=== PATIENT | female | born 1945 | race Caucasian/White ===

== ENCOUNTER 2016-08-23 20:11 | Emergency (ER) | payer OTHER, MEDICAID ==
[2016-08-23 20:21] VITALS: BP 155/67; BMI 28.8
--- NOTE | 2016-08-23 20:35 | DR.GENAD ---
HPI - PCP Primary Care Physician: KIMBERLY - HPI Comment HPI Comment: Patient refers cough runny nose chills x 1wk - Complaint/Symptoms Chief Complaint Doctors Comments: Cough Chief Complaint:: PT STATES" VERONICA BEEN HAVING A COUGH AND MY NOSE HAS BEEN RUNNING I'M BAD TOO GET BRONCHITIS" - Nurses notes reviewed Nurses Notes Review: Yes - Source History Provided: Patient - Mode of Arrival Mode of Arrival: Ambulatory - Timing Onset of Chief Complaint: 08/21/16 PMH - PMH Past Medical History: Yes Past Medical History: Anxiety, Dyslipidemia, GERD, Hypertension, Hypothyroidism , Ventricular Tachycardia Past Surgical History: Yes Surgical History: Cholecystectomy, Hysterectomy Past Surgical History Comment: BLADDER TACK - Family History History of Family Medical Conditions: Yes Family Medical History: Cancer, Coronary Artery Disease, Hypertension - Social History Type of Tobacco Use: Cigarettes Does any household member use tobacco: No Alcohol Use: None Do you use any recreational Drugs:: No Lives With: Family Lives Where: Home - infectious screening In the last 2 months have you had wt loss of >10#?: NO Have you had fever, night sweats or hemotysis?: No Have you traveled outside the country in the last 6 months?: No Isolation: Standard ROS - Review of Systems Constitutional: Fever, Malaise Eyes: No Symptoms Reported ENTM: No Symptoms Reported, Nose Discharge Respiratoy: Non-Productive Cough Cardiovascular: No Symptoms Reported Gastrointestinal/Abdominal: No Symptoms Reported Genitourinary: No Symptoms Reported Neurological: No Symptoms Reported Musculoskeletal: No Symptoms Reported Integumentary: No Symptoms Reported Hematologic/Lymphatic: No Symptoms Reported Endocrine: No Symptoms Reported Psychiatric: No Symptoms Reported All Other Systems: Reviewed and Negative PE - Vital Signs Vitals: Temperature 99.3 F Pulse Rate 96 Respiratory Rate 18 Blood Pressure [Right Arm] 155/75 Blood Pressure [Left Arm] 135/81 Blood Pressure 155/67 O2 Sat by Pulse Oximetry 98 - General Limitations: No Limitations General Appearance: Alert, In No Apparent Distress - Head Head Exam: Normal Inspection - Eyes Eye exam: Normal Appearance, PERRL, EOMI - ENT ENT Exam: Normal Exam External Ear Exam: Normal External Inspection TM/Canal Exam: Bilateral Normal Nose Exam: Normal Nose Exam Mouth Exam: Normal Inspection Throat Exam: Normal Inspection - Neck Neck Exam: Normal Inspection - Chest Chest Inspection: Normal Inspection - Respiratory Respiratory Exam: Normal Lung Sounds Bilat Respiratory Exam: Bilateral Wheezing, Lower Decreased Breath Sounds - Cardiovascular Cardiovascular Exam: Regular Rate, Normal Rhythm - Abdominal Exam Abdominal Exam: Normal Inspection, Normal Bowel Sounds, Soft - Extremities Extremities Exam: Normal Inspection - Back Back Exam: Normal Inspection - Neurologic Neurological Exam: Alert, Oriented X3 - Psychiatric Psychiatric Exam: Depressed, Anxious - Skin Skin Exam: Warm, Dry, Intact, Normal Color Course - Reevaluation 1st: Improved - Education/Counseling Education/Counseling: Patient, Family Educated On: Treatment, Diagnosis, Needs for Follow Up ROR - Labs Reviewed Laboratory Results Reviewed?: Yes Result Diagrams: 08/23/16 20:40 08/23/16 20:40 Laboratory: WBC 8.1 X10^3/uL (3.6-10.0) 08/23/16 20:40 RBC 4.40 X10^6/uL (3.5-5.4) 08/23/16 20:40 Hgb 14.6 g/dL (12.0-16.0) 08/23/16 20:40 Hct 42.2 % (36.0-47.0) 08/23/16 20:40 MCV 95.9 fL (80.0-100.0) 08/23/16 20:40 MCH 33.1 pg (27.0-34.0) 08/23/16 20:40 MCHC 34.5 g/dL (33.0-35.0) 08/23/16 20:40 RDW 13.3 % (11.6-16.5) 08/23/16 20:40 Plt Count 147 X10^3/uL (150.0-450.0) L 08/23/16 20:40 MPV 8.5 fL (7.4-11.0) 08/23/16 20:40 Neut % 82.7 % (42.0-75.0) H 08/23/16 20:40 Lymph % 8.2 % (21.0-51.0) L 08/23/16 20:40 [place] % 7.6 % (0.0-13.0) 08/23/16 20:40 Eos % 0.5 % (0.9-2.9) L 08/23/16 20:40 Baso % 1.0 % (0.2-1.0) 08/23/16 20:40 Neut # 6.7 x10^3/uL (2.2-4.8) H 08/23/16 20:40 Lymph # 0.7 X10^3/uL (1.3-2.9) L 08/23/16 20:40 [place] # 0.6 x10^3/uL (0.3-0.8) 08/23/16 20:40 Eos # 0.0 x10^3/uL (0.0-0.2) 08/23/16 20:40 Baso # 0.1 X10^3/uL (0.0-0.1) 08/23/16 20:40 Absolute Nucleated RBC 0.1 /100WBC 08/23/16 20:40 Sodium 143 mmol/L (136-145) 08/23/16 20:40 Corrected Sodium TNP 08/23/16 20:40 Potassium 3.7 mmol/L (3.5-5.1) 08/23/16 20:40 Chloride 107 mmol/L (98-107) 08/23/16 20:40 Carbon Dioxide 26.6 mmol/L (21-32) 08/23/16 20:40 BUN 7 mg/dL (7-18) 08/23/16 20:40 Creatinine 0.80 mg/dL (0.55-1.02) 08/23/16 20:40 Est GFR (MDRD) Af Amer > 60 (>60) 08/23/16 20:40 Est GFR (MDRD) Non-Af > 60 (>60) 08/23/16 20:40 Glucose 94 mg/dL (65-99) 08/23/16 20:40 Calcium 9.5 mg/dL (8.5-10.1) 08/23/16 20:40 Corrected Calcium TNP 08/23/16 20:40 Total Bilirubin 0.40 mg/dL (0.2-1.0) 08/23/16 20:40 AST 22 Units/L (15-37) 08/23/16 20:40 ALT 23 Units/L (12-78) 08/23/16 20:40 Alkaline Phosphatase 75 Units/L (46-116) 08/23/16 20:40 Total Protein 7.0 g/dL (6.4-8.2) 08/23/16 20:40 Albumin 3.8 g/dL (3.4-5.0) 08/23/16 20:40 Globulin 3.2 g/dL (2.5-4.5) 08/23/16 20:40 Albumin/Globulin Ratio 1.2 Ratio (1.1-2.1) 08/23/16 20:40 reviewed - XRAY XRAY Interpreted by: Radiologist XRAY Findings: COPD - Diagnosis Discharge Problem: Fever, low grade, Cough, COPD exacerbation - Discharge Plan Disposition: HOME, SELF-CARE Condition: Stable Prescriptions: Cefdinir 300 mg PO BID #20 cap - Follow ups/Referrals Follow ups/Referrals: Mark Harris [Primary Care Provider] - 3 days - Instructions Instructions: Chronic Obstructive Pulmonary Disease, Cough, Adult, [id number] Additional Instructions: Follow up with PCP Continue home medications
[2016-08-23 20:49] LABS: BASOPHILS # (AUTO) 0.1 X10^3/uL (0.0-0.1); EOSINOPHILS % (AUTO) 0.5 % (0.9-2.9); HEMATOCRIT 42.2 % (36.0-47.0); HEMOGLOBIN 14.6 g/dL (12.0-16.0); LYMPHOCYTES # (AUTO) 0.7 X10^3/uL (1.3-2.9); LYMPHOCYTES % (AUTO) 8.2 % (21.0-51.0); MEAN CORPUSCULAR HEMOGLOBIN 33.1 pg (27.0-34.0); MEAN CORPUSCULAR HGB CONC 34.5 g/dL (33.0-35.0); MEAN CORPUSCULAR VOLUME 95.9 fL (80.0-100.0); MEAN PLATELET VOLUME 8.5 fL (7.4-11.0); MONOCYTES # (AUTO) 0.6 x10^3/uL (0.3-0.8); MONOCYTES % (AUTO) 7.6 % (0.0-13.0); NEUTROPHILS # (AUTO) 6.7 x10^3/uL (2.2-4.8); NEUTROPHILS % (AUTO) 82.7 % (42.0-75.0); PLATELET COUNT 147 X10^3/uL (150.0-450.0); RED CELL DISTRIBUTION WIDTH 13.3 % (11.6-16.5); WHITE BLOOD COUNT 8.1 X10^3/uL (3.6-10.0)
[2016-08-23 20:59] LABS: ALANINE AMINOTRANSFERASE 23 Units/L (12-78); ALBUMIN 3.8 g/dL (3.4-5.0); ALKALINE PHOSPHATASE 75 Units/L (46-116); ASPARTATE AMINO TRANSFERASE 22 Units/L (15-37); BLOOD UREA NITROGEN 7 mg/dL (7-18); CALCIUM 9.5 mg/dL (8.5-10.1); CARBON DIOXIDE 26.6 mmol/L (21-32); CHLORIDE 107 mmol/L (98-107); GLUCOSE 94 mg/dL (65-99); SODIUM 143 mmol/L (136-145); eGFR BLACK RACES > 60 (>60); eGFR NON BLACK RACES > 60 (>60)
--- NOTE | 2016-08-23 21:12 | RAD ---
EXAM: Chest X-ray INDICATION: Cough COMPARISION: Prior exam from May 19, 2016 TECHNIQUE: PA and Lat, 2 view FINDINGS: Chronic lung parenchymal changes are present bilaterally. The lung volumes are increased, and there is flattening of the hemidiaphragms. No focal lung parenchymal abnormality identified. The cardiac silhouette is mildly enlarged. The mediastinum is normal. The regional skeleton is intact. No evid ence of a pleural effusion. IMPRESSION: Chronic lung parenchymal changes are seen bilaterally and the lung volumes are increased, consistent with COPD. No acute abnormality. Reported By:
[2016-08-23] MEDS ORDERED: ROCEPHIN VIAL 1 GM 1 GM in NS 50 ML IV + SPIKE MINIBAG* 50 ML IV ONE (21:35)
[2016-08-23] MEDS ORDERED: DECADRON JET NEB NEB ONE ×2 (21:35→21:48)
[2016-08-23] MEDS ORDERED: DUONEB 0.5 MG/3 MG NEB ONE (21:35)
[2016-08-23] MEDS ORDERED: ROCEPHIN VIAL 1 GM IM ONE (21:44)
[2016-08-23] MEDS ORDERED: XYLOCAINE 1 % (PLAIN) ONE (21:45)
[2016-08-23] MEDS ORDERED: ROCEPHIN VIAL 1 GM ONE (21:46)
[2016-08-23] MEDS ORDERED: DUONEB 0.5 MG/3 MG ONE (21:48)
[2016-08-23] MEDS ORDERED: TORADOL 60 MG VIAL ONE (22:56)
[2016-08-23] MEDS ORDERED: TORADOL 60 MG VIAL IM ONE (22:56)
== END 2016-08-23 23:26 | disposition home or self-care (01) ==
LOC: ER 20:11
DX: J44.1 Chronic obstructive pulmonary disease with (acute) exacerbation (principal); R50.9 Fever, unspecified; R05 Cough
CPT/HCPCS: 36415; 71020; 80053; 85025; 96372; 99283; J0696; J1885; J2001; J7620

== ENCOUNTER → 2017-09-28 | Outpatient (CLI) | payer OTHER, MEDICAID ==
--- NOTE | 2017-09-28 17:53 | RAD ---
HISTORY: Hip pain for months. Study: Left hip: Two views Comparison: None Findings: The pelvic ring is intact. There is ossification/calcification projected over the right iliac wing, possibly an injection granuloma. There is least mild degenerative change in the lower lumbar spine. The pubic rami are intact. The left hip shows minimal acetabular spurring. No acute bony or joint abnormalities are identified. The femoral head contour and femoral neck are intact. Similar findings are noted on the right. IMPRESSION: 1. Degenerative change in the left hip as described above. 2. No acute bony abnormalities are identified. Reported By:
--- NOTE | 2017-09-28 17:55 | RAD ---
HISTORY: Back pain for months Study: AP and lateral lumbar spine Comparison: None Findings: Five lumbar type vertebra present. Mild osteopenia is noted. Mild facet arthropathy is noted throug hout with [id number] at L4/L5 and L5/S1. Mild degenerative changes present in the sacroiliac j oints. The lateral view demonstrates moderate to moderately severe disc space narrowing at L5/S1. T hree -4 mm of spondylolisthesis of L4 on L5 is noted. Minimal anterior spurring is present at a few levels. Mild vascular calcification is noted. IMPRESSION: 1. Lumbar spondylosis as described above. 2. No acute bony abnormalities are identified. Reported By:
--- NOTE | 2017-09-28 17:56 | RAD ---
HISTORY: Left knee pain for months Study: Left knee: Three views Comparison: None Findings: Moderate joint space narrowing is noted in the medial compartment. Mild spurring is noted medially. Minimal is noted laterally. Mild spiking of the tibial spines is noted. Mild patellofemoral joint degeneration is noted. No acute bony or joint abnormalities are identified. IMPRESSION: 1. Degenerative change in the left knee as described above. 2. No acute bony abnormalities are identified. Reported By:
== END ==
LOC: RAD 15:46
PROVIDERS: ATTEND Nurse Practitioner Family
DX: M54.17 Radiculopathy, lumbosacral region (principal); M25.552 Pain in left hip; M25.562 Pain in left knee
CPT/HCPCS: 72100; 73501; 73564

== ENCOUNTER 2018-08-01 14:38 | Inpatient (IN) ==
[2018-08-01 14:47] VITALS: BMI 23.6
[2018-08-01] MEDS ORDERED: DUONEB 0.5 MG/3 MG NEB ONE (15:08)
[2018-08-01] MEDS ORDERED: ROCEPHIN VIAL 1 GRAM IVP ONE (15:10)
--- NOTE | 2018-08-01 15:11 | DR.GENAD ---
HPI Time Seen Time Seen by Provider: 08/01/18 15:05 PCP Primary Care Physician: ALEX FISHER Complaint/Symptoms Chief Complaint:: PT STATES SHE WOKE UP THIS MORNING AND FELT VERY WEAK AND "COULDN'T GET OUT OF BED." PT C/O GENERALIZED PAIN INTO RIGHT GROIN THAT RADIATES AROUND INTO LOWER BACK. PAIN IS DESCRIBED SHARP STABBING AND CONSTANT AND RATED 9/10. PT ALSO C/O PRODUCTIVE COUGH WITH YELLOW SPUTUM Source History Provided: Patient Mode of Arrival Mode of Arrival: Ambulatory Timing Onset of Chief Complaint: 08/01/18 PMH PMH Past Medical History: Yes Past Medical History: COPD and Hypertension Past Medical History Comment: STAGE 3 LUNG CANCER, LEUKEMIA Past Surgical History: Yes Surgical History: Cholecystectomy and Hysterectomy Family History History of Family Medical Conditions: Yes Family Medical History: Cancer Social History Does patient currently use any type of tobacco product: Yes Have you used tobacco products in the last 12 months: No Type of Tobacco Use: Cigarettes Does any household member use tobacco: No Alcohol Use: None Do you use any recreational Drugs:: No Lives With: Alone Lives Where: Home infectious screening In the last 2 months have you had wt loss of >10#?: NO Have you had fever, night sweats or hemotysis?: No Have you traveled outside the country in the last 6 months?: No Isolation: Standard ROS Review of Systems Constitutional: No Symptoms Reported Eyes: No Symptoms Reported ENTM: No Symptoms Reported Respiratoy: No Symptoms Reported Cardiovascular: No Symptoms Reported Gastrointestinal/Abdominal: No Symptoms Reported Genitourinary: No Symptoms Reported Neurological: No Symptoms Reported Musculoskeletal: No Symptoms Reported Integumentary: No Symptoms Reported Hematologic/Lymphatic: No Symptoms Reported Endocrine: No Symptoms Reported Psychiatric: No Symptoms Reported All Other Systems: Reviewed and Negative PE Vital Signs Vitals: Temperature 100.2 F Pulse Rate [Apical] 109 Pulse Rate 114 Respiratory Rate 24 Blood Pressure [Right Arm] 148/58 Blood Pressure [Left Arm] 135/81 Blood Pressure 130/63 O2 Sat by Pulse Oximetry 93 General Limitations: No Limitations General Appearance: Alert and In No Apparent Distress Head Head Exam: Normal Inspection Eyes Eye exam: Normal Appearance ENT ENT Exam: Normal Exam External Ear Exam: Normal External Inspection TM/Canal Exam: Bilateral: Normal Nose Exam: Normal Nose Exam Mouth Exam: Normal Inspection Throat Exam: Normal Inspection Neck Neck Exam: Normal Inspection Chest Chest Inspection: Normal Inspection Respiratory Respiratory Exam: Normal Lung Sounds Bilat Respiratory Exam: Bilateral: Clear to Auscultation Cardiovascular Cardiovascular Exam: Regular Rate and Normal Rhythm Abdominal Exam Abdominal Exam: Normal Inspection, Normal Bowel Sounds and Soft Extremities Extremities Exam: Normal Inspection Back Back Exam: Normal Inspection Neurologic Neurological Exam: Alert and Oriented X3 Psychiatric Psychiatric Exam: Normal Affect and Normal Mood Skin Skin Exam: Warm, Dry, Intact and Normal Color MDM Additional Information Additional Information Obtained From: Old Records ROR Labs Reviewed Result Diagrams: 08/01/18 15:17 08/01/18 15:17 Laboratory: WBC 24.5 X10^3/uL (3.6-10.0) H 08/01/18 15:17 RBC 4.08 X10^6/uL (3.5-5.4) 08/01/18 15:17 Hgb 10.9 g/dL (12.0-16.0) L 08/01/18 15:17 Hct 34.8 % (36.0-47.0) L 08/01/18 15:17 MCV 85.3 fL (80.0-100.0) 08/01/18 15:17 MCH 26.7 pg (27.0-34.0) L 08/01/18 15:17 MCHC 31.3 g/dL (33.0-35.0) L 08/01/18 15:17 RDW 17.9 % (11.6-16.5) H 08/01/18 15:17 Plt Count 240 X10^3/uL (150.0-450.0) 08/01/18 15:17 Plt Count Comment Adequate (ADEQUATE) 08/01/18 15:17 MPV 8.5 fL (7.4-11.0) 08/01/18 15:17 Neut % (Auto) 84.7 % (42.0-75.0) H 08/01/18 15:17 Lymph % (Auto) 3.9 % (21.0-51.0) L 08/01/18 15:17 [place] % (Auto) 10.8 % (0.0-13.0) 08/01/18 15:17 Eos % (Auto) 0.0 % (0.9-2.9) L 08/01/18 15:17 Baso % (Auto) 0.6 % (0.2-1.0) 08/01/18 15:17 Neut # (Auto) 20.7 x10^3/uL (2.2-4.8) H 08/01/18 15:17 Lymph # (Auto) 1.0 X10^3/uL (1.3-2.9) L 08/01/18 15:17 [place] # (Auto) 2.6 x10^3/uL (0.3-0.8) H 08/01/18 15:17 Eos # (Auto) 0.0 x10^3/uL (0.0-0.2) 08/01/18 15:17 Baso # (Auto) 0.1 X10^3/uL (0.0-0.1) 08/01/18 15:17 Absolute Nucleated RBC 0.0 /100WBC 08/01/18 15:17 Total Counted 100 08/01/18 15:17 Neutrophils % (Manual) 80 % (39-76) H 08/01/18 15:17 Band Neutrophils % 6 % (0-10) 08/01/18 15:17 Lymphocytes % (Manual) 7 % (13-43) L 08/01/18 15:17 Monocytes % (Manual) 6 % (4-9) 08/01/18 15:17 Atypical Lymphocytes 1 08/01/18 15:17 Plt Morphology Comment Normal (NORMAL) 08/01/18 15:17 RBC Morphology Abnormal (NORMAL) A 08/01/18 15:17 Anisocytosis Slight A 08/01/18 15:17 INR Target Range - 08/01/18 15:17 INR 1.16 (0.8-1.3) 08/01/18 15:17 APTT 30.8 SECONDS (22.9-36.5) 08/01/18 15:17 PTT Comment - 08/01/18 15:17 D-Dimer 3650 ng/mL (0-400) H* 08/01/18 15:17 Sample Site Lr 08/01/18 15:15 ABG pH 7.460 (7.35-7.45) H 08/01/18 15:15 ABG pCO2 33.0 mmHg (35.0-45.0) L 08/01/18 15:15 ABG pO2 46.0 mmHg (80.0-100.0) L* 08/01/18 15:15 ABG HCO3 23.5 mmol/L (22-26) 08/01/18 15:15 ABG O2 Saturation 84.0 % (90-100) L* 08/01/18 15:15 ABG Base Excess 0.2 mmol/L (-2.0-2.0) 08/01/18 15:15 Abhinav Test Pos 08/01/18 15:15 A-a Gradient 62.0 mmHg 08/01/18 15:15 FiO2 21.0 08/01/18 15:15 Blood Gas Comments Tiffanie well cb 08/01/18 15:15 Sodium 141 mmol/L (136-145) 08/01/18 15:17 Corrected Sodium TNP 08/01/18 15:17 Potassium 3.0 mmol/L (3.5-5.1) L* 08/01/18 15:17 Chloride 106 mmol/L (98-107) 08/01/18 15:17 Carbon Dioxide 24.5 mmol/L (21-32) 08/01/18 15:17 BUN 9 mg/dL (7-18) 08/01/18 15:17 Creatinine 0.90 mg/dL (0.55-1.02) 08/01/18 15:17 Est GFR (MDRD) Af Amer > 60 (>60) 08/01/18 15:17 Est GFR (MDRD) Non-Af > 60 (>60) 08/01/18 15:17 Glucose 108 mg/dL (65-99) H 08/01/18 15:17 Lactic Acid 1.6 mmol/L (0.4-2.0) 08/01/18 15:17 Calcium 9.6 mg/dL (8.5-10.1) 08/01/18 15:17 Corrected Calcium 10.4 mg/dL (8.5-10.1) H 08/01/18 15:17 Total Bilirubin 0.90 mg/dL (0.2-1.0) 08/01/18 15:17 AST 38 Units/L (15-37) H 08/01/18 15:17 ALT 11 Units/L (12-78) L 08/01/18 15:17 Alkaline Phosphatase 82 Units/L (46-116) 08/01/18 15:17 Creatine Kinase 54 Units/L (26-192) 08/01/18 15:17 CK-MB (CK-2) < 1.0 ng/mL (0-4.0) 08/01/18 15:17 CK/CKMB % Calc 1.9 % (<4) 08/01/18 15:17 Troponin I < 0.02 ng/mL (0-1.5) 08/01/18 15:17 C-Reactive Protein 126.50 mg/L (0-3.0) H 08/01/18 15:17 Total Protein 6.8 g/dL (6.4-8.2) 08/01/18 15:17 Albumin 3.0 g/dL (3.4-5.0) L 08/01/18 15:17 Globulin 3.8 g/dL (2.5-4.5) 08/01/18 15:17 Albumin/Globulin Ratio 0.8 Ratio (1.1-2.1) L 08/01/18 15:17 Specimen Type Clean catch urine 08/01/18 19:22 Urine Color Katie (YELLOW) 08/01/18 19:22 Urine Appearance Clear (CLEAR) 08/01/18 19:22 Urine pH 6.5 (5.0 - 8.0) 08/01/18 19:22 Ur Specific [place] 1.010 (1.000-1.030) 08/01/18 19:22 Urine Protein 2+ (NEGATIVE) 08/01/18 19:22 Urine Glucose (UA) Negative (NEGATIVE) 08/01/18 19:22 Urine Ketones Negative (NEGATIVE) 08/01/18 19:22 Urine Occult Blood 1+ (NEGATIVE) 08/01/18 19:22 Urine Nitrite Negative (NEGATIVE) 08/01/18 19:22 Urine Bilirubin Negative (NEGATIVE) 08/01/18 19:22 Urine Urobilinogen Normal (NORMAL) 08/01/18 19:22 Ur Leukocyte Esterase Negative (NEGATIVE) 08/01/18 19:22 Urine RBC 0-2 /HPF (NONE SEEN) 08/01/18 19:22 Urine WBC 3-5 /HPF (NONE SEEN) 08/01/18 19:22 Ur Squamous Epith Cells Many /HPF (NEGATIVE) 08/01/18 19:22 Urine Bacteria Trace /HPF (NEGATIVE) 02/25/19 19:22 Urine Mucus Rare /HPF (NEGATIVE) 08/01/18 19:22 Ur Culture Indicated? Yes/culture set up 08/01/18 19:22 EKG Rate: 110 [place]eld: RAD Rhythm: ST Hypertrophy: LAE ST: Ischemia and Infarct
[2018-08-01 15:21] LABS: ABG BASE EXCESS 0.2 mmol/L (-2.0-2.0); ABG HCO3 23.5 mmol/L (22-26)
[2018-08-01 15:23] LABS: ABG ALLEN TEST POS
[2018-08-01] MEDS ORDERED: DUONEB 0.5 MG/3 MG ONE ×2 (15:35→16:42)
[2018-08-01 15:39] LABS: BASOPHILS # (AUTO) 0.1 X10^3/uL (0.0-0.1); BASOPHILS % (AUTO) 0.6 % (0.2-1.0); HEMATOCRIT 34.8 % (36.0-47.0); HEMOGLOBIN 10.9 g/dL (12.0-16.0); LYMPHOCYTES % (AUTO) 3.9 % (21.0-51.0); MEAN CORPUSCULAR HEMOGLOBIN 26.7 pg (27.0-34.0); MEAN CORPUSCULAR HGB CONC 31.3 g/dL (33.0-35.0); MEAN CORPUSCULAR VOLUME 85.3 fL (80.0-100.0); MEAN PLATELET VOLUME 8.5 fL (7.4-11.0); MONOCYTES # (AUTO) 2.6 x10^3/uL (0.3-0.8); MONOCYTES % (AUTO) 10.8 % (0.0-13.0); NEUTROPHILS # (AUTO) 20.7 x10^3/uL (2.2-4.8); NEUTROPHILS % (AUTO) 84.7 % (42.0-75.0); PLATELET COUNT 240 X10^3/uL (150.0-450.0); RED BLOOD COUNT 4.08 X10^6/uL (3.5-5.4); RED CELL DISTRIBUTION WIDTH 17.9 % (11.6-16.5); WHITE BLOOD COUNT 24.5 X10^3/uL (3.6-10.0)
[2018-08-01 15:52] LABS: BAND NEUTROPHILS % 6 % (0-10)
[2018-08-01 15:53] LABS: ANISOCYTOSIS SLIGHT; LACTIC ACID 1.6 mmol/L (0.4-2.0)
[2018-08-01 15:54] LABS: PLATELET MORPHOLOGY COMMENT NORMAL (NORMAL)
[2018-08-01] MEDS ORDERED: ROCEPHIN VIAL 1 GRAM ONE (15:55)
[2018-08-01 16:00] LABS: ALANINE AMINOTRANSFERASE 11 Units/L (12-78); ALKALINE PHOSPHATASE 82 Units/L (46-116); ASPARTATE AMINO TRANSFERASE 38 Units/L (15-37); BLOOD UREA NITROGEN 9 mg/dL (7-18); CALCIUM 9.6 mg/dL (8.5-10.1); CARBON DIOXIDE 24.5 mmol/L (21-32); CHLORIDE 106 mmol/L (98-107); CKMB % 1.9 % (<4); COR CA(FOR HYPOALB) 10.4 mg/dL (8.5-10.1); CREATINE KINASE 54 Units/L (26-192); CREATINE KINASE MB < 1.0 ng/mL (0-4.0); SODIUM 141 mmol/L (136-145); TOTAL PROTEIN 6.8 g/dL (6.4-8.2); TROPONIN I < 0.02 ng/mL (0-1.5); eGFR NON BLACK RACES > 60 (>60)
[2018-08-01] MEDS: NS 1000 ML 1,000 ML IV SCH (16:34)
--- NOTE | 2018-08-01 17:54 | RAD ---
HISTORY: Weakness, pain, cough Study: Single view chest Comparison: 08/23/2016 Findings: There are alveolar opacities in the right lower and upper lobes suggestive of pneumonia with probable right effusion. Left lung is clear. No effusion or pneumothorax. Stable cardiomegaly with vascular calcifications of the aorta. IMPRESSION: 1. Right lung consolidation suggestive of pneumonia with probable effusion. Reported By:
--- NOTE | 2018-08-01 18:02 | CT ---
CTA chest Indication: Elevated D-dimer. Leukemia. Comparison: 05/06/2014 Technique: CT images of the chest were obtained with contrast. Automatic exposure control was utilized. MIP images provided. Findings: The upper abdomen is grossly unremarkable. No acute osseous abnormality. The heart size is normal, with small pericardial effusion. There are several enlarged paratracheal, subcarinal, and right hilar lymph nodes. Thoracic aorta is grossly unremarkable for technique aside from scattered atherosclerotic calcifications and aberrant origin of the right subclavian artery. There are filling defects within multiple segmental and subsegmental branches of the right upper, middle, and lower lobes (for example image 34, series 4; image 60, series 7; image 54, series 7; image 41, series 7; image 58, series 4). There is filling defect within a segmental pulmonary artery branch in the left lower lobe (for example image 53, series 4). Smaller subsegmental right lower lobe filling defects are also noted. There is no convincing right heart strain. There is consolidation and volume loss involving the majority of the right lower lobe. The aerated portions of the right lower lobe demonstrate interstitial thickening with ground-glass. There is small layering right pleural effusion. There is partial compressive atelectasis of the dependent right upper lobe. Mild subsegmental atelectasis of the left lower lobe. No left-sided pleural effusion. The major airways are patent. Impression: Multiple segmental and subsegmental pulmonary thromboemboli throughout the right lung and within the left lower lobe. Mediastinal and right hilar adenopathy, likely malignant. Small right pleural effusion. Consolidation and volume loss of the right lung, suggestive for atelectasis and/or infectious or leukemic infiltrate. Small pericardial effusion. Reported By:
[2018-08-01] MEDS ORDERED: HEPARIN SODIUM IN D5W 25,000 UNITS/500 ML BAG IV PRN (18:45)
[2018-08-01] MEDS ORDERED: K-LYTE EFFERVESCENT PO ONE (19:07)
[2018-08-01] MEDS ORDERED: K-LYTE EFFERVESCENT ONE (19:23)
[2018-08-01 19:36] LABS: BILIRUBIN,URINE NEGATIVE (NEGATIVE); BLOOD/HEMOGLOBIN,URINE 1+ (NEGATIVE); GLUCOSE, URINE NEGATIVE (NEGATIVE); KETONES,URINE NEGATIVE (NEGATIVE); LEUKOCYTE ESTERASE ,URINE NEGATIVE (NEGATIVE); NITRITES,URINE NEGATIVE (NEGATIVE); PH,URINE 6.5 (5.0 - 8.0); PROTEIN,URINE 2+ (NEGATIVE); UROBILINOGEN,URINE NORMAL (NORMAL)
[2018-08-01 19:45] LABS: APPEARANCE,URINE CLEAR (CLEAR); COLOR,URINE AMBER (YELLOW)
[2018-08-01 19:46] LABS: BACTERIA,URINE TRACE /HPF (NEGATIVE); MUCUS,URINE RARE /HPF (NEGATIVE); RBC,URINE 0-2 /HPF (NONE SEEN); SQUAMOUS EPITHELIAL CELL,UR MANY /HPF (NEGATIVE)
[2018-08-01] MEDS: ELIQUIS PO SCH (22:03)
[2018-08-01] MEDS ORDERED: K-RIDER 10 MEQ/NS 100 ML 10 MEQ/100 ML BAG IV PRN (22:48)
[2018-08-01] MEDS ORDERED: KLOR-CON PO PRN (22:48)
[2018-08-01] MEDS ORDERED: MICRO K EXTEN CAP 10 MEQ PO PRN (22:48)
[2018-08-01] MEDS ORDERED: POTASSIUM CHL 40 MEQ/NS 0.45% 500 ML IV PRN (22:48)
[2018-08-01] MEDS ORDERED: POTASSIUM CHL 60 MEQ/NS 0.45% 500 ML IV PRN (22:48)
[2018-08-01] MEDS ORDERED: POTASSIUM CHLORIDE LIQ 20 MEQ UDC PO PRN (22:48)
[2018-08-01] MEDS: K-DUR TAB 20 MEQ PO PRN (23:10)
[2018-08-01] MEDS: ULTRAM PO PRN (23:13)
[2018-08-02 05:30] LABS: BASOPHILS # (AUTO) 0.1 X10^3/uL (0.0-0.1); BASOPHILS % (AUTO) 0.3 % (0.2-1.0); HEMATOCRIT 32.3 % (36.0-47.0); HEMOGLOBIN 10.1 g/dL (12.0-16.0); LYMPHOCYTES # (AUTO) 0.9 X10^3/uL (1.3-2.9); MEAN CORPUSCULAR HEMOGLOBIN 26.7 pg (27.0-34.0); MEAN CORPUSCULAR HGB CONC 31.1 g/dL (33.0-35.0); MEAN CORPUSCULAR VOLUME 85.8 fL (80.0-100.0); MEAN PLATELET VOLUME 8.8 fL (7.4-11.0); MONOCYTES # (AUTO) 1.8 x10^3/uL (0.3-0.8); MONOCYTES % (AUTO) 7.9 % (0.0-13.0); NEUTROPHILS # (AUTO) 20.4 x10^3/uL (2.2-4.8); NEUTROPHILS % (AUTO) 87.8 % (42.0-75.0); PLATELET COUNT 222 X10^3/uL (150.0-450.0); RED BLOOD COUNT 3.76 X10^6/uL (3.5-5.4); RED CELL DISTRIBUTION WIDTH 18.2 % (11.6-16.5); WHITE BLOOD COUNT 23.2 X10^3/uL (3.6-10.0)
[2018-08-02 05:52] LABS: ALANINE AMINOTRANSFERASE 11 Units/L (12-78); ALBUMIN 2.6 g/dL (3.4-5.0); ALKALINE PHOSPHATASE 77 Units/L (46-116); ASPARTATE AMINO TRANSFERASE 34 Units/L (15-37); BLOOD UREA NITROGEN 9 mg/dL (7-18); CALCIUM 9.5 mg/dL (8.5-10.1); CARBON DIOXIDE 25.8 mmol/L (21-32); CHLORIDE 106 mmol/L (98-107); CKMB % 1.6 % (<4); COR CA(FOR HYPOALB) 10.6 mg/dL (8.5-10.1); CREATINE KINASE 64 Units/L (26-192); CREATINE KINASE MB < 1.0 ng/mL (0-4.0); CREATININE 0.86 mg/dL (0.55-1.02); SODIUM 140 mmol/L (136-145); TOTAL PROTEIN 6.2 g/dL (6.4-8.2); TROPONIN I < 0.02 ng/mL (0-1.5); eGFR NON BLACK RACES > 60 (>60)
[2018-08-02] MEDS: SYNTHROID 50 mcg TAB PO SCH (06:24)
[2018-08-02 06:33] LABS: BAND NEUTROPHILS % 3 % (0-10); PLATELET MORPHOLOGY COMMENT NORMAL (NORMAL)
[2018-08-02] MEDS ORDERED: LEXAPRO ONE (08:22)
[2018-08-02] MEDS: DUONEB 0.5 MG/3 MG NEB SCH ×4 (08:37→20:12)
[2018-08-02] MEDS: LEXAPRO PO SCH (08:54)
[2018-08-02] MEDS: KLONOPIN TAB 1 MG PO SCH ×2 (08:55→20:45)
[2018-08-02] MEDS: OSCAL+D or CALTRATE+D PO SCH (08:55)
[2018-08-02] MEDS: SINGULAIR TAB 10 MG PO SCH (08:55)
[2018-08-02] MEDS: ELIQUIS PO SCH ×2 (08:55→20:45)
[2018-08-02] MEDS: TOPROL XL PO SCH (08:55)
[2018-08-02] MEDS: FLONASE NASAL SPRAY ENOSTRIL SCH ×2 (08:56→20:44)
[2018-08-02] MEDS: PATIENT'S HOME MEDICATION (Dexlansoprazole [Dexilant] 60 MG) PO SCH ×2 (08:57→14:38)
[2018-08-02] MEDS: IMATINIB 400 MG PO SCH (08:58)
[2018-08-02] MEDS ORDERED: LEVAQUIN PREMIX IV 750 MG 750 MG/150 ML BAG IV SCH (09:00)
[2018-08-02] MEDS ORDERED: ESTRACE PO SCH (09:00)
[2018-08-02] MEDS: FORTAZ or TAZICEF VIAL INJ IVP SCH ×3 (10:42→21:49)
[2018-08-02] MEDS: K-DUR TAB 20 MEQ PO PRN (10:44)
[2018-08-02] MEDS: SOLU-Medrol 40 MG VIAL IVP SCH ×3 (10:46→21:49)
[2018-08-02] MEDS: MAGNESIUM SULFATE 1 GRAM/100 mL PREMIX 1 GM/100 ML BAG IV PRN ×2 (10:46→12:12)
[2018-08-02 11:31] LABS: ERYTHROCYTE SEDIMENTATION RATE 60 MM/HOUR (0-20)
[2018-08-02 12:37] LABS: BILIRUBIN,URINE NEGATIVE (NEGATIVE); BLOOD/HEMOGLOBIN,URINE 1+ (NEGATIVE); GLUCOSE, URINE NEGATIVE (NEGATIVE); KETONES,URINE NEGATIVE (NEGATIVE); LEUKOCYTE ESTERASE ,URINE 1+ (NEGATIVE); NITRITES,URINE NEGATIVE (NEGATIVE); PROTEIN,URINE 2+ (NEGATIVE); UROBILINOGEN,URINE NORMAL (NORMAL)
[2018-08-02 12:44] LABS: APPEARANCE,URINE HAZY (CLEAR); BACTERIA,URINE NEGATIVE /HPF (NEGATIVE); COLOR,URINE YELLOW (YELLOW); RBC,URINE 0-2 /HPF (NONE SEEN); SQUAMOUS EPITHELIAL CELL,UR RARE /HPF (NEGATIVE)
--- NOTE | 2018-08-02 13:18 | RAD ---
HISTORY: Shortness of breath and pneumonia Study: Single view of the chest. Comparison: CT 1 day prior demonstrating multiple pulmonary emboli and pneumonia Findings: The cardiomediastinal silhouette is normal. Patchy opacities in the right lower lobe. Osseous structures demonstrate no acute abnormality. IMPRESSION: 1. Opacities in the right lower lobe suggestive of pneumonia or possibly pulmonary infarct given patient's history of pulmonary emboli. Reported By:
[2018-08-02] MEDS: TORSEMIDE PO SCH (14:31)
[2018-08-02] MEDS: ROBITUSSIN DM PO PRN ×2 (14:59→19:16)
--- NOTE | 2018-08-02 15:41 | VAS ---
Exam: Bilateral lower extremity venous ultrasound History: 73-year-old female with history of pulmonary embolus. Comparison: None Findings: Ultrasound evaluation of the deep venous system of both legs was performed from the level of the inguinal ligament down to the calf. On both sides, the deep system is widely patent with good flow and compressibility noted throughout their course. No sign of intraluminal thrombus is seen in either leg. Impression: No deep vein thrombosis is identified in either lower extremity Reported By:
[2018-08-02] MEDS: NS 1000 ML 1,000 ML IV SCH (16:42)
[2018-08-02] MEDS: HumuLIN R SUBCUT PRN (16:42)
--- NOTE | 2018-08-02 20:30 | DR.H&P ---
H&P - History & Physical for Day of: H&P Date: 08/01/18 - Chief Complaint Chief Complaint: WEAKNESS, GENERALIZED PAIN, SOB, COUGH - History of Present Illness History of Present Illness: IS A 73 YEAR OLD PATIENT OF MOMENTFACE SRO. SHE PRESENTED TO THE ER WITH COMPLAINTS OF SEVERE WEAKNESS AND GENERALIZED PAIN. SHE DESCRIBES HER BACK PAIN STABBING AND CONSTANT. SHE ALSO REPORTS A PRODUCTIVE COUGH WITH THICK, YELLOW SPUTUM. SHE HAS A HISTORY OF LEUKEMIA AND WAS RECENTLY DIAGNOSED WITH STAGE 3 LUNG CANCER. ON ARRIVAL, VITALS WERE 100.5-126-18-86%RA-87/54. LABS WERE OBTAINED. ABNORMAL LAB VALUES INCLUDE THE FOLLOWING: WBC 24.5, HGB 10.9, HCT 34.8, D-DIMER 3650, POTASSIUM 3.0, GLUCOSE 108, AST 38, ALT 11, CRP 126.50, ALBUMIN 3.0. URINALYSIS REVEALED: WBC 3-5, RBC 0-2, BACTERIA TRACE, LEUKOCYTES NEGATIVE. ABG OBTAINED AND REVEALED: PH 7.460, PC02 33.0, P02 46.0, HC03 23.5, 02 SATURATION 84.0. BLOOD, URINE, AND SPUTUM CULTURES PENDING. EKG REVEALED SINUS TACHYCARDIA WITH HR 110. CHEST XRAY REVEALED: Right lung consolidation suggestive of pneumonia with probable effusion. A CHEST CTA WAS OBTAINED AND REVEALED: Multiple segmental and subsegmental pulmonary thromboemboli throughout the right lung and within the left lower lobe. Mediastinal and right hilar adenopathy, likely malignant. Small right pleural effusion. Consolidation and volume loss of the right lung, suggestive for atelectasis and/or infectious or leukemic infiltrate. Small pericardial effusion. SHE WAS GIVEN ROCEPHIN 1GM IV X 1 AND A DUONEB IN THE ER. SHE WAS STARTED ON ELIQUIS 10MG PO BID, LEVAQUIN 750MG IV DAILY, NORMAL SALINE AT KVO, AND HOME MEDICATIONS RESUMED. WE PLAN TO FOLLOW UP WITH AM LABS AND CHEST XRAY AND CONTINUE TO MONITOR. - Past Medical History Past Medical History: Hypertension, COPD - Past Surgical History Surgical History: Cholecystectomy, Hysterectomy - Family History Family Medical History: Cancer - Social History Does patient currently use any type of tobacco product: Yes Have you used tobacco products in the last 12 months: Yes Type of Tobacco Use: Cigarettes Does any household member use tobacco: No Alcohol Use: None Drug Use: None - Medications Home Medications: codeine Allergy (Verified 08/01/18 14:50) CONTINUE taking the following medications albuterol sulfate [Ventolin HFA] 2 puff INHALATION Q4H PRN 08/01/18 [History] calcium carbonate-vitamin D3 [Caltrate 600 + D] 1 tab PO DAILY 08/01/18 [History] clonazepam 1 mg PO BID 08/01/18 [History] escitalopram oxalate 10 mg PO DAILY 08/01/18 [History] fluticasone 50 mcg INTRANASAL BID 08/01/18 [History] gabapentin 300 mg PO HS 08/01/18 [History] metoprolol succinate 50 mg PO DAILY 08/01/18 [History] - Review of Systems Constitutional: Weakness, Malaise Eyes: No Symptoms Reported ENT: No Symptoms Reported Respiratory: See HPI, Cough, Shortness of Breath, SOB with Excertion Cardiovascular: No Symptoms Reported Gastrointestinal: No Symptoms Reported Genitourinary: No Symptoms Reported Musculoskeletal: See HPI, Back Pain Skin: No Symptoms Reported Neurological: Weakness - Physical Exam Vital Signs: Temperature 98.6 F Pulse Rate [Apical] 111 Pulse Rate 63 Respiratory Rate 31 Blood Pressure [Right Arm] 130/62 Blood Pressure [Left Arm] 135/81 Blood Pressure 108/55 O2 Sat by Pulse Oximetry 96 Oriented: Normal Eyes: Normal Ear: Normal Nose: Normal Throat: Normal Respiratory: Diminished Throughout Cardiovascular: Tachycardia. negative: S3, S4, Murmur : Normal Auscultation: Bowel Sounds: Normal Palpation: Normal Tenderness: Normal Skin: Normal Musculoskeletal: Normal, Back:Lumbar Psychiatric: Normal Mood Description: Calm Affect: Normal Speech Pattern: Clear - Assessment/Plan (1) Pneumonia Qualifiers: Pneumonia type: due to unspecified organism Laterality: right Lung location: unspecified part of lung Qualified Code(s): J18.9 - Pneumonia, unspecified organism Status: Acute Plan: PNEUMONIA PROTOCOL, LEVAQUIN IV, RESPIRATORY TX, SUPPLEMENTAL OXYGEN, CONTINUE TO MONITOR (2) Pulmonary embolism Qualifiers: Pulmonary embolism type: unspecified Chronicity: acute Acute cor pulmonale presence: without acute cor pulmonale Qualified Code(s): I26.99 - Other pulmonary embolism without acute cor pulmonale Status: Acute Plan: ELIQUIS 10MG PO BID, OBTAIN LOWER EXTREMITY VENOUS DOPPLER TO RULE OUT DVT, CONTINUE TO MONITOR - Allergies Allergies/Adverse Reactions: Allergies Allergy/AdvReac Type Severity Reaction Status Date / Time codeine Allergy Verified 08/01/18 14:50
[2018-08-02] MEDS: LIPITOR TAB 40 MG PO SCH (20:44)
[2018-08-02] MEDS: ZANTAC PO SCH (20:44)
[2018-08-02] MEDS: NEURONTIN CAP 300 MG PO SCH (20:45)
[2018-08-02] MEDS: SNACK - Diabetic Appropriate PO SCH (20:55)
[2018-08-03] MEDS: ROBITUSSIN DM PO PRN ×2 (04:26→10:38)
[2018-08-03] MEDS: FORTAZ or TAZICEF VIAL INJ IVP SCH ×3 (05:19→21:01)
[2018-08-03] MEDS: SOLU-Medrol 40 MG VIAL IVP SCH ×3 (05:20→21:01)
[2018-08-03 05:32] LABS: BASOPHILS % (AUTO) 0.2 % (0.2-1.0); HEMATOCRIT 33.2 % (36.0-47.0); HEMOGLOBIN 10.2 g/dL (12.0-16.0); LYMPHOCYTES # (AUTO) 0.6 X10^3/uL (1.3-2.9); MEAN CORPUSCULAR HEMOGLOBIN 26.5 pg (27.0-34.0); MEAN CORPUSCULAR HGB CONC 30.6 g/dL (33.0-35.0); MEAN CORPUSCULAR VOLUME 86.8 fL (80.0-100.0); MEAN PLATELET VOLUME 9.4 fL (7.4-11.0); MONOCYTES # (AUTO) 0.7 x10^3/uL (0.3-0.8); MONOCYTES % (AUTO) 2.6 % (0.0-13.0); NEUTROPHILS # (AUTO) 27.2 x10^3/uL (2.2-4.8); NEUTROPHILS % (AUTO) 95.2 % (42.0-75.0); PLATELET COUNT 205 X10^3/uL (150.0-450.0); RED BLOOD COUNT 3.83 X10^6/uL (3.5-5.4); RED CELL DISTRIBUTION WIDTH 18.1 % (11.6-16.5); WHITE BLOOD COUNT 28.6 X10^3/uL (3.6-10.0)
[2018-08-03] MEDS: NS 1000 ML 1,000 ML IV SCH ×2 (05:37→16:14)
[2018-08-03 05:57] LABS: ALANINE AMINOTRANSFERASE 13 Units/L (12-78); ALBUMIN 2.4 g/dL (3.4-5.0); ALKALINE PHOSPHATASE 93 Units/L (46-116); ASPARTATE AMINO TRANSFERASE 26 Units/L (15-37); BLOOD UREA NITROGEN 13 mg/dL (7-18); CALCIUM 9.9 mg/dL (8.5-10.1); CARBON DIOXIDE 26.7 mmol/L (21-32); CHLORIDE 107 mmol/L (98-107); COR CA(FOR HYPOALB) 11.2 mg/dL (8.5-10.1); COR NA(FOR HYPERGLY) 142 mmol/L (136-145); CREATININE 0.81 mg/dL (0.55-1.02); MAGNESIUM 2.5 mg/dL (1.7-2.9); SODIUM 141 mmol/L (136-145); TOTAL PROTEIN 6.5 g/dL (6.4-8.2); eGFR NON BLACK RACES > 60 (>60)
[2018-08-03 06:11] LABS: BAND NEUTROPHILS % 5 % (0-10)
[2018-08-03 06:12] LABS: HYPOCHROMASIA SLIGHT; PLATELET MORPHOLOGY COMMENT NORMAL (NORMAL)
[2018-08-03] MEDS: SYNTHROID 50 mcg TAB PO SCH (06:22)
--- NOTE | 2018-08-03 06:55 | RAD ---
HISTORY: Shortness of breath, pneumonia Study: Chest AP portable Comparison: 08/02/2018 Findings: The patient is rotated to the left. The heart remains enlarged. No congestive heart failure is noted. The left lung is clear. There has been interval development since the prior examination of marked increased density in the right upper lobe. This is partially due to atelectasis as evidence by the upward bowing of the minor fissure. Accompanying infiltrate or infarction cannot be excluded considering the history of PE. Right lower lobe infiltrate is unchanged. The bony thorax is unremarkable. IMPRESSION: Interval development of marked increased density in the right upper lobe partially due to atelectasis however underlying pneumonia or infarction cannot be excluded No change right lower lobe infiltrate No change cardiomegaly without congestive heart failure Reported By:
[2018-08-03] MEDS: DUONEB 0.5 MG/3 MG NEB SCH ×4 (08:20→20:32)
[2018-08-03] MEDS ORDERED: LEXAPRO ONE (08:28)
[2018-08-03] MEDS: PATIENT'S HOME MEDICATION (Dexlansoprazole [Dexilant] 60 MG) PO SCH (08:29)
[2018-08-03] MEDS: IMATINIB 400 MG PO SCH (08:30)
[2018-08-03] MEDS: SINGULAIR TAB 10 MG PO SCH (08:32)
[2018-08-03] MEDS: TOPROL XL PO SCH (08:33)
[2018-08-03] MEDS: LEXAPRO PO SCH (08:33)
[2018-08-03] MEDS: OSCAL+D or CALTRATE+D PO SCH (08:33)
[2018-08-03] MEDS: LEVAQUIN PREMIX IV 500 MG 500 MG/100 ML BAG IV SCH (08:33)
[2018-08-03] MEDS: ELIQUIS PO SCH ×2 (08:33→20:28)
[2018-08-03] MEDS: KLONOPIN TAB 1 MG PO SCH ×2 (08:33→20:28)
[2018-08-03] MEDS: FLONASE NASAL SPRAY ENOSTRIL SCH ×2 (08:34→20:30)
[2018-08-03] MEDS: TORSEMIDE PO SCH (08:35)
--- NOTE | 2018-08-03 08:39 | PCM.PROG ---
Progress Note - Progress Note for Day of Date of Exam: 08/02/18 - Subjective Subjective: WAS ADMITTED FOR MULTIPLE PULMONARY EMBOLISMS AND PNEUMONIA. TODAY, SHE IS ALERT AND ORIENTED, LYING IN BED ON MORNING ROUNDS. SHE IS UTILIZING THE VENTI-MASK AT THIS TIME. SHE CONTINUES WITH SHORTNESS OF BREATH THIS MORNING WELL GENERALIZED WEAKNESS. STAFF REPORTS THAT IT TAKES 2 PERSON, MAXIMUM ASSISTANCE TO ASSIST PATIENT OUT OF BED. SHE IS NOTED WITH SCATTERED WHEEZING AND RHONCHI TO AUSCULTATION. HER VITALS THIS MORNING ARE 99.5-112-26-94%VM-109/55. LABS WERE OBTAINED. ABNORMAL LAB VALUES INCLUDE THE FOLLOWING: WBC 23.2, HGB 10.1, HCT 32.3, INR 1.77, PTT 47.9, GLUCOSE 143, ALBUMIN 2.4, CRP 249.80, ESR 60. SPUTUM, BLOOD, AND URINE CULTURE PENDING. SHE IS CURRENTLY RECEIVING ELIQUIS 10MG PO BID, LEVAQUIN 750MG IV DAILY, AND RESPIRATORY TX. TODAY, WE WILL DECREASE ELIQUIS TO 5MG PO BID, DECREASE LEVAQUIN TO 500MG IV DAILY, START FORTAZ 1GM IV Q8H, START SOLU-MEDROL 80MG IV Q8H, AND SLIDING SCALE INSULIN. WE WILL OBTAIN A HYPERCOAGULATION PANEL, PERIPHERAL SM EAR, AND A LOWER EXTREMITY VENOUS DOPPLER. OTHERWISE, WE WILL FOLLOW UP WITH AM LABS AND CONTINUE TO MONITOR. - Past Medical Family Social History Past Med/Fam/Surg Hx: No changes since H&P Allergies: Allergies codeine Allergy (Verified 08/01/18 14:50) - Review of Systems ROS: No change since H&P - Vital Signs and I&O's Vital Signs: Temperature 98.6 F Pulse Rate [Apical] 111 Pulse Rate 80 Respiratory Rate 26 Blood Pressure [Right Arm] 130/62 Blood Pressure [Left Arm] 135/81 Blood Pressure 134/60 O2 Sat by Pulse Oximetry 99 Intake and Output: Intake & Output 07/31/18 08/01/18 08/02/18 08/03/18 11:59 11:59 11:59 11:59 Intake Total 390 / 390 2326 / 2326 Output Total 451 / 451 1600 / 1600 Balance -61 / -61 726 / 726 - Physical Exam Oriented: Normal Eyes: Normal Ear: Normal Nose: Normal Throat: Normal Respiratory: Generalized, Wheezes, Rhonchi Cardiovascular: Tachycardia. negative: S3, S4, Murmur : Normal Auscultation: Bowel Sounds: Normal Palpation: Normal Tenderness: Normal Skin: Normal Musculoskeletal: Normal, Back:Lumbar Psychiatric: Normal Mood Description: Calm Affect: Normal Speech Pattern: Clear - Laboratory and Diagnostics Result Diagrams: 08/03/18 04:20 08/03/18 04:20 Labs: 08/01/18 19:22 Urine,Clean Catch Urine Culture - Preliminary 08/01/18 23:58 Sputum - Expectorated Sputum - Final Laboratory WBC 28.6 X10^3/uL (3.6-10.0) H 08/03/18 04:20 RBC 3.83 X10^6/uL (3.5-5.4) 08/03/18 04:20 Hgb 10.2 g/dL (12.0-16.0) L 08/03/18 04:20 Hct 33.2 % (36.0-47.0) L 08/03/18 04:20 MCV 86.8 fL (80.0-100.0) 08/03/18 04:20 MCH 26.5 pg (27.0-34.0) L 08/03/18 04:20 MCHC 30.6 g/dL (33.0-35.0) L 08/03/18 04:20 RDW 18.1 % (11.6-16.5) H 08/03/18 04:20 Plt Count 205 X10^3/uL (150.0-450.0) 08/03/18 04:20 Plt Count Comment Adequate (ADEQUATE) 08/03/18 04:20 MPV 9.4 fL (7.4-11.0) 08/03/18 04:20 Neut % (Auto) 95.2 % (42.0-75.0) H 08/03/18 04:20 Lymph % (Auto) 2.0 % (21.0-51.0) L 08/03/18 04:20 [place] % (Auto) 2.6 % (0.0-13.0) 08/03/18 04:20 Eos % (Auto) 0.0 % (0.9-2.9) L 08/03/18 04:20 Baso % (Auto) 0.2 % (0.2-1.0) 08/03/18 04:20 Neut # (Auto) 27.2 x10^3/uL (2.2-4.8) H 08/03/18 04:20 Lymph # (Auto) 0.6 X10^3/uL (1.3-2.9) L 08/03/18 04:20 [place] # (Auto) 0.7 x10^3/uL (0.3-0.8) 08/03/18 04:20 Eos # (Auto) 0.0 x10^3/uL (0.0-0.2) 08/03/18 04:20 Baso # (Auto) 0.0 X10^3/uL (0.0-0.1) 08/03/18 04:20 Absolute Nucleated RBC 0.0 /100WBC 08/03/18 04:20 Total Counted 100 08/03/18 04:20 Neutrophils % (Manual) 94 % (39-76) H 08/03/18 04:20 Band Neutrophils % 5 % (0-10) 08/03/18 04:20 Lymphocytes % (Manual) Not Reportable 08/03/18 04:20 Monocytes % (Manual) 1 % (4-9) L 08/03/18 04:20 Atypical Lymphocytes 1 08/01/18 15:17 Plt Morphology Comment Normal (NORMAL) 08/03/18 04:20 RBC Morphology Abnormal (NORMAL) A 08/03/18 04:20 Hypochromasia Slight A 08/03/18 04:20 Anisocytosis Slight A 08/01/18 15:17 ESR 60 MM/HOUR (0-20) H 08/02/18 10:34 INR Target Range - 08/02/18 04:38 INR 1.77 (0.8-1.3) H 08/02/18 04:38 APTT 47.9 SECONDS (22.9-36.5) H 08/02/18 04:38 PTT Comment - 08/02/18 04:38 D-Dimer 3650 ng/mL (0-400) H* 08/01/18 15:17 Sample Site Lr 08/01/18 15:15 ABG pH 7.460 (7.35-7.45) H 08/01/18 15:15 ABG pCO2 33.0 mmHg (35.0-45.0) L 08/01/18 15:15 ABG pO2 46.0 mmHg (80.0-100.0) L* 08/01/18 15:15 ABG HCO3 23.5 mmol/L (22-26) 08/01/18 15:15 ABG O2 Saturation 84.0 % (90-100) L* 08/01/18 15:15 ABG Base Excess 0.2 mmol/L (-2.0-2.0) 08/01/18 15:15 Abhinav Test Pos 08/01/18 15:15 A-a Gradient 62.0 mmHg 08/01/18 15:15 FiO2 21.0 08/01/18 15:15 Blood Gas Comments Tiffanie well cb 08/01/18 15:15 Sodium 141 mmol/L (136-145) 08/03/18 04:20 Corrected Sodium 142 mmol/L (136-145) 08/03/18 04:20 Potassium 4.6 mmol/L (3.5-5.1) 08/03/18 04:20 Chloride 107 mmol/L (98-107) 08/03/18 04:20 Carbon Dioxide 26.7 mmol/L (21-32) 08/03/18 04:20 BUN 13 mg/dL (7-18) 08/03/18 04:20 Creatinine 0.81 mg/dL (0.55-1.02) 08/03/18 04:20 Est GFR (MDRD) Af Amer > 60 (>60) 08/03/18 04:20 Est GFR (MDRD) Non-Af > 60 (>60) 08/03/18 04:20 Glucose 143 mg/dL (65-99) H 08/03/18 04:20 POC Glucose (mg/dL) 158 mg/dL (65-99) H 08/03/18 05:23 Lactic Acid 1.6 mmol/L (0.4-2.0) 08/01/18 15:17 Calcium 9.9 mg/dL (8.5-10.1) 08/03/18 04:20 Corrected Calcium 11.2 mg/dL (8.5-10.1) H 08/03/18 04:20 Magnesium 2.5 mg/dL (1.7-2.9) 08/03/18 04:20 Total Bilirubin 0.30 mg/dL (0.2-1.0) 08/03/18 04:20 AST 26 Units/L (15-37) 08/03/18 04:20 ALT 13 Units/L (12-78) 08/03/18 04:20 Alkaline Phosphatase 93 Units/L (46-116) 08/03/18 04:20 Creatine Kinase 64 Units/L (26-192) 08/02/18 04:38 CK-MB (CK-2) < 1.0 ng/mL (0-4.0) 08/02/18 04:38 CK/CKMB % Calc 1.6 % (<4) 08/02/18 04:38 Troponin I < 0.02 ng/mL (0-1.5) 08/02/18 04:38 C-Reactive Protein 249.80 mg/L (0-3.0) H 08/02/18 10:34 Total Protein 6.5 g/dL (6.4-8.2) 08/03/18 04:20 Albumin 2.4 g/dL (3.4-5.0) L 08/03/18 04:20 Globulin 4.1 g/dL (2.5-4.5) 08/03/18 04:20 Albumin/Globulin Ratio 0.6 Ratio (1.1-2.1) L 08/03/18 04:20 Specimen Type Catherized urine 08/02/18 12:15 Urine Color Yellow (YELLOW) 08/02/18 12:15 Urine Appearance Hazy (CLEAR) 08/02/18 12:15 Urine pH 6.0 (5.0 - 8.0) 08/02/18 12:15 Ur Specific [place] 1.015 (1.000-1.030) 08/02/18 12:15 Urine Protein 2+ (NEGATIVE) 08/02/18 12:15 Urine Glucose (UA) Negative (NEGATIVE) 08/02/18 12:15 Urine Ketones Negative (NEGATIVE) 08/02/18 12:15 Urine Occult Blood 1+ (NEGATIVE) 08/02/18 12:15 Urine Nitrite Negative (NEGATIVE) 08/02/18 12:15 Urine Bilirubin Negative (NEGATIVE) 08/02/18 12:15 Urine Urobilinogen Normal (NORMAL) 08/02/18 12:15 Ur Leukocyte Esterase 1+ (NEGATIVE) 08/02/18 12:15 Urine RBC 0-2 /HPF (NONE SEEN) 08/02/18 12:15 Urine WBC 0-2 /HPF (NONE SEEN) 08/02/18 12:15 Ur Squamous Epith Cells Rare /HPF (NEGATIVE) 08/02/18 12:15 Urine Bacteria Negative /HPF (NEGATIVE) 08/02/18 12:15 Urine Mucus Rare /HPF (NEGATIVE) 08/01/18 19:22 Ur Culture Indicated? No/not indicated 08/02/18 12:15 - Plan (1) Pneumonia Status: Acute Qualifiers: Pneumonia type: due to unspecified organism Laterality: right Lung location: unspecified part of lung Qualified Code(s): J18.9 - Pneumonia, unspecified organism Plan: PNEUMONIA PROTOCOL, LEVAQUIN IV, RESPIRATORY TX, SOLU-MEDROL 80MG IV TID, SUPPLEMENTAL OXYGEN, CONTINUE TO MONITOR (2) Pulmonary embolism Status: Acute Qualifiers: Pulmonary embolism type: unspecified Chronicity: acute Acute cor pulmonale presence: without acute cor pulmonale Qualified Code(s): I26.99 - Other pulmonary embolism without acute cor pulmonale Plan: ELIQUIS 5MG PO BID, OBTAIN LOWER EXTREMITY VENOUS DOPPLER TO RULE OUT DVT, HYPERCOAG PANEL, PERIPHERAL SMEAR, CONTINUE TO MONITOR
[2018-08-03] MEDS: MUCOMYST 20% 200 MG/ML NEB SCH ×4 (10:12→20:32)
[2018-08-03] MEDS: THEO-DUR TAB 200 MG PO SCH ×2 (10:37→20:27)
[2018-08-03] MEDS: VSL#3 PO SCH (10:37)
[2018-08-03] MEDS: ULTRAM PO PRN (15:22)
[2018-08-03] MEDS: SNACK - Diabetic Appropriate PO SCH (20:00)
[2018-08-03] MEDS: HumuLIN R SUBCUT PRN (20:26)
[2018-08-03] MEDS: NEURONTIN CAP 300 MG PO SCH (20:28)
[2018-08-03] MEDS: LIPITOR TAB 40 MG PO SCH (20:30)
[2018-08-03] MEDS: ZANTAC PO SCH (20:30)
[2018-08-04 05:30] LABS: BASOPHILS % (AUTO) 0.2 % (0.2-1.0); HEMATOCRIT 28.9 % (36.0-47.0); HEMOGLOBIN 9.2 g/dL (12.0-16.0); LYMPHOCYTES # (AUTO) 0.3 X10^3/uL (1.3-2.9); LYMPHOCYTES % (AUTO) 1.3 % (21.0-51.0); MEAN CORPUSCULAR HGB CONC 31.7 g/dL (33.0-35.0); MEAN CORPUSCULAR VOLUME 85.2 fL (80.0-100.0); MEAN PLATELET VOLUME 9.5 fL (7.4-11.0); MONOCYTES # (AUTO) 0.4 x10^3/uL (0.3-0.8); MONOCYTES % (AUTO) 1.4 % (0.0-13.0); NEUTROPHILS # (AUTO) 23.8 x10^3/uL (2.2-4.8); NEUTROPHILS % (AUTO) 97.1 % (42.0-75.0); PLATELET COUNT 211 X10^3/uL (150.0-450.0); RED BLOOD COUNT 3.39 X10^6/uL (3.5-5.4); RED CELL DISTRIBUTION WIDTH 18.1 % (11.6-16.5); WHITE BLOOD COUNT 24.5 X10^3/uL (3.6-10.0)
[2018-08-04] MEDS: SOLU-Medrol 40 MG VIAL IVP SCH ×3 (05:33→21:00)
[2018-08-04] MEDS: FORTAZ or TAZICEF VIAL INJ IVP SCH ×3 (05:33→21:00)
[2018-08-04 05:37] LABS: ALANINE AMINOTRANSFERASE 16 Units/L (12-78); ALBUMIN 2.2 g/dL (3.4-5.0); ALKALINE PHOSPHATASE 101 Units/L (46-116); ASPARTATE AMINO TRANSFERASE 25 Units/L (15-37); BLOOD UREA NITROGEN 15 mg/dL (7-18); CALCIUM 9.4 mg/dL (8.5-10.1); CARBON DIOXIDE 24.1 mmol/L (21-32); CHLORIDE 106 mmol/L (98-107); COR CA(FOR HYPOALB) 10.8 mg/dL (8.5-10.1); COR NA(FOR HYPERGLY) 141 mmol/L (136-145); CREATININE 0.74 mg/dL (0.55-1.02); SODIUM 140 mmol/L (136-145); eGFR NON BLACK RACES > 60 (>60)
[2018-08-04 06:01] LABS: BAND NEUTROPHILS % 1 % (0-10); PLATELET MORPHOLOGY COMMENT NORMAL (NORMAL)
--- NOTE | 2018-08-04 06:40 | RAD ---
HISTORY: Shortness of breath, follow-up pneumonia Study: Chest AP portable Comparison: 08/03/2018 Findings: The heart remains enlarged. No congestive heart failure is noted. There is markedly improved aeration in the right upper lobe likely indicating resolution of partial right upper lobe atelectasis. Right lower lobe infiltrate is unchanged. The left lung is clear. The bony thorax is unremarkable. IMPRESSION: Resolution of the previously noted right upper lobe volume loss No change right lower lobe infiltrate Moderate cardiomegaly without congestive heart failure Reported By:
[2018-08-04] MEDS ORDERED: LEXAPRO ONE (07:19)
[2018-08-04] MEDS: FLONASE NASAL SPRAY ENOSTRIL SCH ×3 (08:38→20:24)
[2018-08-04] MEDS: DEMADEX PO ONE ×2 (08:52→08:55)
[2018-08-04] MEDS: SYNTHROID 50 mcg TAB PO SCH (08:52)
[2018-08-04] MEDS: KLONOPIN TAB 1 MG PO SCH ×2 (08:52→20:23)
[2018-08-04] MEDS: THEO-DUR TAB 200 MG PO SCH ×2 (08:52→20:23)
[2018-08-04] MEDS: SINGULAIR TAB 10 MG PO SCH (08:52)
[2018-08-04] MEDS: VSL#3 PO SCH (08:52)
[2018-08-04] MEDS: TOPROL XL PO SCH (08:53)
[2018-08-04] MEDS: LEVAQUIN PREMIX IV 500 MG 500 MG/100 ML BAG IV SCH (08:53)
[2018-08-04] MEDS: LEXAPRO PO SCH (08:53)
[2018-08-04] MEDS: ELIQUIS PO SCH ×2 (08:53→20:23)
[2018-08-04] MEDS: OSCAL+D or CALTRATE+D PO SCH (08:54)
[2018-08-04] MEDS: TORSEMIDE PO SCH (08:54)
[2018-08-04] MEDS: MUCOMYST 20% 200 MG/ML NEB SCH ×4 (09:09→20:38)
[2018-08-04] MEDS: DUONEB 0.5 MG/3 MG NEB SCH ×4 (09:09→20:38)
[2018-08-04] MEDS: HALDOL INJ IM PRN ×2 (09:56→11:45)
[2018-08-04 10:23] LABS: ABG ALLEN TEST POS; ABG BASE EXCESS 3.9 mmol/L (-2.0-2.0); ABG HCO3 28.5 mmol/L (22-26)
[2018-08-04] MEDS: NICOTINE PATCH TD ONE ×2 (10:48→11:19)
[2018-08-04] MEDS: ULTRAM PO PRN ×2 (10:49→20:23)
[2018-08-04] MEDS: DIFLUCAN 200 MG IV PREMIX* 200 MG/100 ML BAG IV SCH (10:49)
[2018-08-04] MEDS: NICOTINE PATCH TD SCH (10:50)
[2018-08-04] MEDS ORDERED: PHARMACY CONSULT - TPN XX SCH (11:00)
[2018-08-04] MEDS ORDERED: PROCALAMINE 3 % 1,000 ML IV SCH (13:00)
[2018-08-04] MEDS: NS 1000 ML 1,000 ML IV SCH (20:21)
[2018-08-04] MEDS: SNACK - Diabetic Appropriate PO SCH (20:21)
[2018-08-04] MEDS: NEURONTIN CAP 300 MG PO SCH (20:22)
[2018-08-04] MEDS: LIPITOR TAB 40 MG PO SCH (20:23)
[2018-08-04] MEDS: ROBITUSSIN DM PO PRN (20:24)
[2018-08-04] MEDS: ZANTAC PO SCH (20:25)
--- NOTE | 2018-08-04 20:29 | PCM.PROG ---
Progress Note - Progress Note for Day of Date of Exam: 08/03/18 - Subjective Subjective: WAS ADMITTED FOR MULTIPLE PULMONARY EMBOLISMS AND PNEUMONIA. TODAY, SHE IS ALERT AND ORIENTED, LYING IN BED ON MORNING ROUNDS. SHE CONTINUES TO UTILIZED THE VENTI-MASK. SHE CONTINUES WITH SHORTNESS OF BREATH THIS MORNING WELL GENERALIZED WEAKNESS. SHE CONTINUES WITH SCATTERED WHEEZING AND RHONCHI TO AUSCULTATION. HER VITALS THIS MORNING ARE 98.6-82-26-96%VM-134/60. LABS WERE OBTAINED. ABNORMAL LAB VALUES INCLUDE THE FOLLOWING: WBC 28.6, HGB 10.2, HCT 33.2, INR 1.77, GLUCOSE 143, ALBUMIN 2.4, CRP 266.90. SPUTUM, BLOOD, AND URINE CULTURE PENDING. CHEST XRAY OBTAINED AND REVEALED: Interval development of marked increased density in the right upper lobe partially due to atelectasis however underlying pneumonia or infarction cannot be excluded. No change right lower lobe infiltrate. No change cardiomegaly without congestive heart failure. VENOUS DOPPLER NEGATIVE FOR DVT. SHE IS CURRENTLY RECEIVING ELIQUIS 5MG PO BID, LEVAQUIN 500MG IV DAILY, FORTAZ 1GM IV Q8H, SOLU-MEDROL 80MG IV Q8H, AND RESPIRATORY TX. TODAY, WE WILL ADD MUCOMYST TO NEB TX, START PROBIOTICS, AND MARIANNE-DUR 200MG PO BID. OTHERWISE, WE WILL FOLLOW UP WITH AM LABS AND CONTINUE TO MONITOR. - Past Medical Family Social History Past Med/Fam/Surg Hx: No changes since H&P Allergies: Allergies codeine Allergy (Verified 08/01/18 14:50) - Review of Systems ROS: No change since H&P - Vital Signs and I&O's Vital Signs: Temperature 98.6 F Pulse Rate [Apical] 111 Pulse Rate 94 Respiratory Rate 22 Blood Pressure [Right Arm] 130/62 Blood Pressure [Left Arm] 135/81 Blood Pressure 142/62 O2 Sat by Pulse Oximetry 94 Intake and Output: Intake & Output 08/02/18 08/03/18 08/04/18 08/05/18 11:59 11:59 11:59 11:59 Intake Total 390 / 390 2326 / 2326 3477 / 3477 385 / 385 Output Total 451 / 451 1600 / 1600 2225 / 2225 800 / 800 Balance -61 / -61 726 / 726 1252 / 1252 -415 / -415 - Physical Exam Oriented: Normal Eyes: Normal Ear: Normal Nose: Normal Throat: Normal Respiratory: Generalized, Wheezes, Rhonchi Cardiovascular: Tachycardia. negative: S3, S4, Murmur : Normal Auscultation: Bowel Sounds: Normal Palpation: Normal Tenderness: Normal Skin: Normal Musculoskeletal: Normal, Back:Lumbar Psychiatric: Normal Mood Description: Calm Affect: Normal Speech Pattern: Clear, Appropriate - Laboratory and Diagnostics Result Diagrams: 08/04/18 04:28 08/04/18 04:28 Labs: 08/01/18 23:58 Sputum - Expectorated Sputum Sputum Culture - Final 08/01/18 23:58 Sputum - Expectorated Sputum - Final 08/01/18 15:28 Blood Blood Culture - Preliminary 08/01/18 15:17 Blood Blood Culture - Preliminary 08/01/18 19:22 Urine,Clean Catch Urine Culture - Final Laboratory WBC 24.5 X10^3/uL (3.6-10.0) H 08/04/18 04:28 RBC 3.39 X10^6/uL (3.5-5.4) L 08/04/18 04:28 Hgb 9.2 g/dL (12.0-16.0) L 08/04/18 04:28 Hct 28.9 % (36.0-47.0) L 08/04/18 04:28 MCV 85.2 fL (80.0-100.0) 08/04/18 04:28 MCH 27.0 pg (27.0-34.0) 08/04/18 04:28 MCHC 31.7 g/dL (33.0-35.0) L 08/04/18 04:28 RDW 18.1 % (11.6-16.5) H 08/04/18 04:28 Plt Count 211 X10^3/uL (150.0-450.0) 08/04/18 04:28 Plt Count Comment Adequate (ADEQUATE) 08/04/18 04:28 MPV 9.5 fL (7.4-11.0) 08/04/18 04:28 Neut % (Auto) 97.1 % (42.0-75.0) H 08/04/18 04:28 Lymph % (Auto) 1.3 % (21.0-51.0) L 08/04/18 04:28 [place] % (Auto) 1.4 % (0.0-13.0) 08/04/18 04:28 Eos % (Auto) 0.0 % (0.9-2.9) L 08/04/18 04:28 Baso % (Auto) 0.2 % (0.2-1.0) 08/04/18 04:28 Neut # (Auto) 23.8 x10^3/uL (2.2-4.8) H 08/04/18 04:28 Lymph # (Auto) 0.3 X10^3/uL (1.3-2.9) L 08/04/18 04:28 [place] # (Auto) 0.4 x10^3/uL (0.3-0.8) 08/04/18 04:28 Eos # (Auto) 0.0 x10^3/uL (0.0-0.2) 08/04/18 04:28 Baso # (Auto) 0.0 X10^3/uL (0.0-0.1) 08/04/18 04:28 Absolute Nucleated RBC 0.1 /100WBC 08/04/18 04:28 Total Counted 100 08/04/18 04:28 Neutrophils % (Manual) 96 % (39-76) H 08/04/18 04:28 Band Neutrophils % 1 % (0-10) 08/04/18 04:28 Lymphocytes % (Manual) 2 % (13-43) L 08/04/18 04:28 Monocytes % (Manual) 1 % (4-9) L 08/04/18 04:28 Atypical Lymphocytes 1 08/01/18 15:17 Plt Morphology Comment Normal (NORMAL) 08/04/18 04:28 RBC Morphology Normal (NORMAL) 08/04/18 04:28 Hypochromasia Slight A 08/03/18 04:20 Anisocytosis Slight A 08/01/18 15:17 ESR 85 MM/HOUR (0-20) H 08/03/18 08:20 INR Target Range - 08/03/18 08:20 INR 1.77 (0.8-1.3) H 08/03/18 08:20 APTT 47.9 SECONDS (22.9-36.5) H 08/02/18 04:38 PTT Comment - 02/26/19 04:38 D-Dimer 3650 ng/mL (0-400) H* 08/01/18 15:17 Sample Site Rr 08/04/18 10:15 ABG pH 7.440 (7.35-7.45) 08/04/18 10:15 ABG pCO2 42.0 mmHg (35.0-45.0) 08/04/18 10:15 ABG pO2 59.0 mmHg (80.0-100.0) L 08/04/18 10:15 ABG HCO3 28.5 mmol/L (22-26) H 08/04/18 10:15 ABG O2 Saturation 91.0 % (90-100) 08/04/18 10:15 ABG Base Excess 3.9 mmol/L (-2.0-2.0) H 08/04/18 10:15 Abhinav Test Pos 08/04/18 10:15 A-a Gradient 88.0 mmHg 08/04/18 10:15 FiO2 28.0 08/04/18 10:15 Blood Gas Comments Pt soruav well llj 08/04/18 10:15 Sodium 140 mmol/L (136-145) 08/04/18 04:28 Corrected Sodium 141 mmol/L (136-145) 08/04/18 04:28 Potassium 4.0 mmol/L (3.5-5.1) 08/04/18 04:28 Chloride 106 mmol/L (98-107) 08/04/18 04:28 Carbon Dioxide 24.1 mmol/L (21-32) 08/04/18 04:28 BUN 15 mg/dL (7-18) 08/04/18 04:28 Creatinine 0.74 mg/dL (0.55-1.02) 08/04/18 04:28 Est GFR (MDRD) Af Amer > 60 (>60) 08/04/18 04:28 Est GFR (MDRD) Non-Af > 60 (>60) 08/04/18 04:28 Glucose 158 mg/dL (65-99) H 08/04/18 04:28 POC Glucose (mg/dL) 124 mg/dL (65-99) H 08/04/18 20:01 Lactic Acid 1.6 mmol/L (0.4-2.0) 08/01/18 15:17 Calcium 9.4 mg/dL (8.5-10.1) 08/04/18 04:28 Corrected Calcium 10.8 mg/dL (8.5-10.1) H 08/04/18 04:28 Magnesium 2.5 mg/dL (1.7-2.9) 08/03/18 04:20 Total Bilirubin 0.30 mg/dL (0.2-1.0) 08/04/18 04:28 AST 25 Units/L (15-37) 08/04/18 04:28 ALT 16 Units/L (12-78) 08/04/18 04:28 Alkaline Phosphatase 101 Units/L (46-116) 08/04/18 04:28 Creatine Kinase 64 Units/L (26-192) 08/02/18 04:38 CK-MB (CK-2) < 1.0 ng/mL (0-4.0) 08/02/18 04:38 CK/CKMB % Calc 1.6 % (<4) 08/02/18 04:38 Troponin I < 0.02 ng/mL (0-1.5) 08/02/18 04:38 C-Reactive Protein 266.90 mg/L (0-3.0) H 08/03/18 08:20 Total Protein 6.0 g/dL (6.4-8.2) L 08/04/18 04:28 Albumin 2.2 g/dL (3.4-5.0) L 08/04/18 04:28 Globulin 3.8 g/dL (2.5-4.5) 08/04/18 04:28 Albumin/Globulin Ratio 0.6 Ratio (1.1-2.1) L 08/04/18 04:28 Prealbumin 9.4 mg/dL (18-35.7) L 08/04/18 04:28 Specimen Type Catherized urine 08/02/18 12:15 Urine Color Yellow (YELLOW) 08/02/18 12:15 Urine Appearance Hazy (CLEAR) 08/02/18 12:15 Urine pH 6.0 (5.0 - 8.0) 08/02/18 12:15 Ur Specific [place] 1.015 (1.000-1.030) 08/02/18 12:15 Urine Protein 2+ (NEGATIVE) 08/02/18 12:15 Urine Glucose (UA) Negative (NEGATIVE) 08/02/18 12:15 Urine Ketones Negative (NEGATIVE) 08/02/18 12:15 Urine Occult Blood 1+ (NEGATIVE) 08/02/18 12:15 Urine Nitrite Negative (NEGATIVE) 08/02/18 12:15 Urine Bilirubin Negative (NEGATIVE) 08/02/18 12:15 Urine Urobilinogen Normal (NORMAL) 08/02/18 12:15 Ur Leukocyte Esterase 1+ (NEGATIVE) 08/02/18 12:15 Urine RBC 0-2 /HPF (NONE SEEN) 08/02/18 12:15 Urine WBC 0-2 /HPF (NONE SEEN) 08/02/18 12:15 Ur Squamous Epith Cells Rare /HPF (NEGATIVE) 08/02/18 12:15 Urine Bacteria Negative /HPF (NEGATIVE) 08/02/18 12:15 Urine Mucus Rare /HPF (NEGATIVE) 08/01/18 19:22 Ur Culture Indicated? No/not indicated 08/02/18 12:15 - Plan (1) Pneumonia Status: Acute Qualifiers: Pneumonia type: due to unspecified organism Laterality: right Lung location: unspecified part of lung Qualified Code(s): J18.9 - Pneumonia, unspecified organism Plan: PNEUMONIA PROTOCOL, LEVAQUIN IV, RESPIRATORY TX, SOLU-MEDROL 80MG IV TID, MUCOMYST TO NEB TX, MARIANNE-DUR 200MG PO BID, SUPPLEMENTAL OXYGEN, CONTINUE TO MONITOR (2) Pulmonary embolism Status: Acute Qualifiers: Pulmonary embolism type: unspecified Chronicity: acute Acute cor pu lmonale presence: without acute cor pulmonale Qualified Code(s): I26.99 - Other pulmonary embolism without acute cor pulmonale Plan: ELIQUIS 5MG PO BID, OBTAIN LOWER EXTREMITY VENOUS DOPPLER TO RULE OUT DVT, HYPERCOAG PANEL, PERIPHERAL SMEAR, CONTINUE TO MONITOR
[2018-08-05] MEDS: FORTAZ or TAZICEF VIAL INJ IVP SCH ×2 (05:46→13:37)
[2018-08-05] MEDS: SOLU-Medrol 40 MG VIAL IVP SCH ×2 (05:46→13:37)
[2018-08-05] MEDS: SYNTHROID 50 mcg TAB PO SCH (05:59)
[2018-08-05 06:00] LABS: BASOPHILS % (AUTO) 0.1 % (0.2-1.0); HEMATOCRIT 32.3 % (36.0-47.0); HEMOGLOBIN 10.1 g/dL (12.0-16.0); LYMPHOCYTES # (AUTO) 0.4 X10^3/uL (1.3-2.9); MEAN CORPUSCULAR HEMOGLOBIN 26.8 pg (27.0-34.0); MEAN CORPUSCULAR HGB CONC 31.3 g/dL (33.0-35.0); MEAN CORPUSCULAR VOLUME 85.5 fL (80.0-100.0); MEAN PLATELET VOLUME 8.3 fL (7.4-11.0); MONOCYTES # (AUTO) 0.3 x10^3/uL (0.3-0.8); MONOCYTES % (AUTO) 1.8 % (0.0-13.0); NEUTROPHILS # (AUTO) 17.5 x10^3/uL (2.2-4.8); NEUTROPHILS % (AUTO) 96.1 % (42.0-75.0); PLATELET COUNT 239 X10^3/uL (150.0-450.0); RED BLOOD COUNT 3.77 X10^6/uL (3.5-5.4); RED CELL DISTRIBUTION WIDTH 18.2 % (11.6-16.5); WHITE BLOOD COUNT 18.3 X10^3/uL (3.6-10.0)
[2018-08-05 06:17] LABS: ALANINE AMINOTRANSFERASE 24 Units/L (12-78); ALBUMIN 2.1 g/dL (3.4-5.0); ALKALINE PHOSPHATASE 102 Units/L (46-116); ASPARTATE AMINO TRANSFERASE 30 Units/L (15-37); BLOOD UREA NITROGEN 16 mg/dL (7-18); CALCIUM 9.5 mg/dL (8.5-10.1); CARBON DIOXIDE 27.9 mmol/L (21-32); CHLORIDE 107 mmol/L (98-107); COR NA(FOR HYPERGLY) 142 mmol/L (136-145); CREATININE 0.66 mg/dL (0.55-1.02); SODIUM 141 mmol/L (136-145); TOTAL PROTEIN 6.1 g/dL (6.4-8.2); eGFR NON BLACK RACES > 60 (>60)
[2018-08-05 06:43] LABS: BAND NEUTROPHILS % 5 % (0-10); PLATELET MORPHOLOGY COMMENT NORMAL (NORMAL)
[2018-08-05 06:48] LABS: ERYTHROCYTE SEDIMENTATION RATE 58 MM/HOUR (0-20)
--- NOTE | 2018-08-05 07:06 | RAD ---
HISTORY: Follow-up pneumonia Study: Chest AP portable Comparison: 08/04/2018 Findings: The heart is enlarged. No congestive heart failure is noted. There has been some improvement in the right lower lobe infiltrate being followed. The remainder of the lung aguayo are free of acute infiltrates. Interstitial lung changes are present. The bony thorax is unremarkable. IMPRESSION: Continued cardiomegaly without congestive heart failure Improving right lower lobe infiltrate Reported By:
[2018-08-05] MEDS ORDERED: LEXAPRO ONE (08:31)
[2018-08-05] MEDS: LEVAQUIN PREMIX IV 500 MG 500 MG/100 ML BAG IV SCH (08:53)
[2018-08-05] MEDS: DIFLUCAN 200 MG IV PREMIX* 200 MG/100 ML BAG IV SCH (08:53)
[2018-08-05] MEDS: NICOTINE PATCH TD SCH (08:54)
[2018-08-05] MEDS: SINGULAIR TAB 10 MG PO SCH (08:55)
[2018-08-05] MEDS: VSL#3 PO SCH (08:56)
[2018-08-05] MEDS: THEO-DUR TAB 200 MG PO SCH (08:56)
[2018-08-05] MEDS: LEXAPRO PO SCH (08:56)
[2018-08-05] MEDS: OSCAL+D or CALTRATE+D PO SCH (08:56)
[2018-08-05] MEDS: ELIQUIS PO SCH (08:57)
[2018-08-05] MEDS: KLONOPIN TAB 1 MG PO SCH (08:57)
[2018-08-05] MEDS: TOPROL XL PO SCH (08:57)
[2018-08-05] MEDS: FLONASE NASAL SPRAY ENOSTRIL SCH (08:58)
[2018-08-05] MEDS: TORSEMIDE PO SCH (08:59)
[2018-08-05] MEDS: HALDOL INJ IM PRN (09:07)
[2018-08-05 09:59] LABS: ANTI-NUCLEAR ANTIBODY TEST Detected (None Detected); ANTITHROMBIN III ACTIVITY 67 % (76-128)
[2018-08-05] MEDS: DUONEB 0.5 MG/3 MG NEB SCH ×2 (10:02→13:28)
[2018-08-05] MEDS: MUCOMYST 20% 200 MG/ML NEB SCH ×2 (10:02→13:28)
[2018-08-05] MEDS: HumuLIN R SUBCUT PRN (11:57)
[2018-08-05 14:11] VITALS: BP 169/79
[2018-08-06 10:50] LABS: APC RESISTANCE 3.69 (>=2.00)
[2018-08-07 10:42] LABS: PROTEIN C ACTIVITY 78 % (83-168)
[2018-08-08 06:40] LABS: THROMBIN TIME 17.2
[2018-08-08 06:53] LABS: ANA PATTERN CENTROMERE
[2018-08-09 06:33] LABS: PROTHROMBIN G20210A Negative
== END 2018-08-05 14:20 | disposition home health service (06) | DRG 193 ==
LOC: ER 14:38 → ICU 21:10
PROVIDERS: ADMIT Obstetrics & Gynecology Obstetrics; ATTEND Internal Medicine
DX: R26.89 Other abnormalities of gait and mobility; R79.82 Elevated C-reactive protein (CRP); J44.9 Chronic obstructive pulmonary disease, unspecified; J90 Pleural effusion, not elsewhere classified; I26.99 Other pulmonary embolism without acute cor pulmonale; J18.8 Other pneumonia, unspecified organism; E11.65 Type 2 diabetes mellitus with hyperglycemia; I10 Essential (primary) hypertension; R06.02 Shortness of breath; C34.90 Malignant neoplasm of unspecified part of unspecified bronchus or lung
CPT/HCPCS: 36415; 36600; 71010; 71045; 71275; 80053; 81001; 81240; 82550; 82553; 82615; 82803; 83090; 83605; 83735; 84132; 84134; 84484; 85025; 85060; 85300; 85303; 85305; 85306; 85307; 85378; 85597; 85610; 85613; 85635; 85652; 85670; 85730; 85732; 86038; 86140; 86308; 87040; 87070; 87086; 87205; 93005; 93970; 94640; 96365; 96367; 96374; 97110; 97116; 97162; 97166; 97530; 97535; 99282; 99285; A4222; B5200; J0696; J0713; J1450; J1630; J1815; J1956; J2920; J3475; J7030; J7620; J8499

== ENCOUNTER 2018-08-26 15:07 | Inpatient (IN) ==
--- NOTE | 2018-08-26 16:10 | DR.AMS ---
HPI Time Seen Time Seen by Provider: 08/26/18 16:01 PCP Primary Care Physician: KIMBERLY Complaint Cheif Complaint Doctors Comments: A 73 y/o female noted with mental status changes about noon today. She appears confused. There is an underlying hx. of [place] PD on BIPAP, hx. of Lung Cancer and old P.E. Chief Complaint:: PT IS CONFUSED. HAS A HARD TIME FOCUSING TO ANSWER QUESTION. HOME HEALTH NURSE WENT TO CHECK ON PT AND PT MENTAL STATUS HAD CHANGED SINCE WEDNESDAY. AROUND 11:30-12:00 IS WHEN PATIENT FAMILY NOTICED THE CHANGE. PT WEARS A BIPAP AT NIGHT BUT DID NOT WEAR IT LAST NIGHT. PT OXYGEN WAS 90% THEN UP TO 96% Source History Provided: Patient Mode of Arrival Mode of Arrival: Ambulatory Timing Onset of Chief Complaint: 08/26/18 PMH PMH Past Medical History: Yes Past Medical History: COPD and Hypertension Past Surgical History: Yes Surgical History: Cholecystectomy and Hysterectomy Family History History of Family Medical Conditions: Yes Family Medical History: Cancer Social History Alcohol Use: None Do you use any recreational Drugs:: No Lives With: Alone Lives Where: Home infectious screening In the last 2 months have you had wt loss of >10#?: NO Have you had fever, night sweats or hemotysis?: No Have you traveled outside the country in the last 6 months?: No Isolation: Standard ROS Review of Systems Constitutional: No Symptoms Reported Eyes: No Symptoms Reported ENTM: No Symptoms Reported Respiratoy: No Symptoms Reported Cardiovascular: No Symptoms Reported Gastrointestinal/Abdominal: No Symptoms Reported Genitourinary: No Symptoms Reported Neurological: Other (confused) Musculoskeletal: No Symptoms Reported Integumentary: No Symptoms Reported Hematologic/Lymphatic: No Symptoms Reported Endocrine: No Symptoms Reported Psychiatric: No Symptoms Reported PE Vitals Vital Signs: Temp Pulse Pulse Resp BP BP BP 08/26/18 15:08 97.4 F L 95 H 77 20 139/64 143/76 08/05/18 14:00 169/79 08/01/18 21:55 130/62 05/08/14 12:00 135/81 Pulse Ox 08/26/18 15:08 91 L 08/05/18 14:00 08/01/18 21:55 05/08/14 12:00 General Limitations: No Limitations General Appearance: Alert and In No Apparent Distress Head Head Exam: Normal Inspection, Atraumatic and Normocephalic Eyes Eye exam: Normal Appearance, PERRL and EOMI ENT ENT Exam: Normal Exam, Normal Oropharynx and Mucous Membranes Moist Neck Neck Exam: Normal Inspection, Full ROM and Trachea Midline Chest Chest Inspection: Normal Inspection and Symmetric Chest Wall Rise Respiratory Respiratory Exam: Normal Lung Sounds Bilat Cardiovascular Cardiovascular Exam: Regular Rate, Normal Rhythm, +S1 and +S2 Abdominal Exam Abdominal Exam: Normal Inspection, Normal Bowel Sounds and Soft Extremities Extremities Exam: Normal Inspection and Full ROM Back Back Exam: Normal Inspection Neurological Neurological Exam: Alert Patient Oriented To: negative Person, Place and Time Speech: Other (slow to respond verbally. appears to be word searching) Psychological Psychiatric Exam: Flat Affect Skin Skin Exam: Warm, Dry, Intact and Normal Color COURSE Reevaluation 1st: Unchanged Education/Counseling Education/Counseling: Patient, Family, Education and Counseling Educated On: Treatment, Diagnosis, Prognosis and Needs for Follow Up ROR Labs Reviewed Laboratory Results Reviewed?: Yes Result Diagrams: 08/26/18 16:30 08/26/18 16:30 Laboratory: WBC 9.0 X10^3/uL (3.6-10.0) 08/26/18 16:30 RBC 4.17 X10^6/uL (3.5-5.4) 08/26/18 16:30 Hgb 11.4 g/dL (12.0-16.0) L 08/26/18 16:30 Hct 35.5 % (36.0-47.0) L 08/26/18 16:30 MCV 85.2 fL (80.0-100.0) 08/26/18 16:30 MCH 27.3 pg (27.0-34.0) 08/26/18 16:30 MCHC 32.1 g/dL (33.0-35.0) L 08/26/18 16:30 RDW 19.9 % (11.6-16.5) H 08/26/18 16:30 Plt Count 248 X10^3/uL (150.0-450.0) 08/26/18 16:30 MPV 8.1 fL (7.4-11.0) 08/26/18 16:30 Neut % (Auto) 82.2 % (42.0-75.0) H 08/26/18 16:30 Lymph % (Auto) 8.6 % (21.0-51.0) L 08/26/18 16:30 [place] % (Auto) 6.5 % (0.0-13.0) 08/26/18 16:30 Eos % (Auto) 0.2 % (0.9-2.9) L 08/26/18 16:30 Baso % (Auto) 2.5 % (0.2-1.0) H 08/26/18 16:30 Neut # (Auto) 7.4 x10^3/uL (2.2-4.8) H 08/26/18 16:30 Lymph # (Auto) 0.8 X10^3/uL (1.3-2.9) L 08/26/18 16:30 [place] # (Auto) 0.6 x10^3/uL (0.3-0.8) 08/26/18 16:30 Eos # (Auto) 0.0 x10^3/uL (0.0-0.2) 08/26/18 16:30 Baso # (Auto) 0.2 X10^3/uL (0.0-0.1) H 08/26/18 16:30 Absolute Nucleated RBC 0.0 /100WBC 08/26/18 16:30 Sample Site Lr 08/26/18 16:43 ABG pH 7.490 (7.35-7.45) H 08/26/18 16:43 ABG pCO2 37.0 mmHg (35.0-45.0) 08/26/18 16:43 ABG pO2 54.0 mmHg (80.0-100.0) L 08/26/18 16:43 ABG HCO3 28.2 mmol/L (22-26) H 08/26/18 16:43 ABG O2 Saturation 90.0 % (90-100) 08/26/18 16:43 ABG Base Excess 4.7 mmol/L (-2.0-2.0) H 08/26/18 16:43 Abhinav Test Pos 08/26/18 16:43 A-a Gradient 49.0 mmHg 08/26/18 16:43 FiO2 21.0 08/26/18 16:43 Blood Gas Comments Tiffanie well gmb 08/26/18 16:43 Sodium 142 mmol/L (136-145) 08/26/18 16:30 Corrected Sodium TNP 08/26/18 16:30 Potassium 3.7 mmol/L (3.5-5.1) 08/26/18 16:30 Chloride 105 mmol/L (98-107) 08/26/18 16:30 Carbon Dioxide 28.6 mmol/L (21-32) 08/26/18 16:30 BUN 10 mg/dL (7-18) 08/26/18 16:30 Creatinine 0.81 mg/dL (0.55-1.02) 08/26/18 16:30 Est GFR (MDRD) Af Amer > 60 (>60) 08/26/18 16:30 Est GFR (MDRD) Non-Af > 60 (>60) 08/26/18 16:30 Glucose 89 mg/dL (65-99) 08/26/18 16:30 Calcium 10.4 mg/dL (8.5-10.1) H 08/26/18 16:30 Corrected Calcium TNP 08/26/18 16:30 Total Bilirubin 0.70 mg/dL (0.2-1.0) 08/26/18 16:30 AST 29 Units/L (15-37) 08/26/18 16:30 ALT 20 Units/L (12-78) 08/26/18 16:30 Alkaline Phosphatase 92 Units/L (46-116) 08/26/18 16:30 Ammonia 14 umol/L (11-32) 08/26/18 16:41 Total Protein 7.5 g/dL (6.4-8.2) 08/26/18 16:30 Albumin 3.8 g/dL (3.4-5.0) 08/26/18 16:30 Globulin 3.7 g/dL (2.5-4.5) 08/26/18 16:30 Albumin/Globulin Ratio 1.0 Ratio (1.1-2.1) L 08/26/18 16:30 Other Results Comments: Radiologist report on non-contrasted CT [place]: Findings highly concerning for acute Left frontal lobe infarct. Diagnosis Discharge Problem: Focal infarction of brain, Benign essential HTN, Chronic GERD Lung malignancy Qualifiers: Laterality: unspecified laterality Lung location: unspecified part of lung Qualified Code(s): C34.90 - Malignant neoplasm of unspecified part of u nspecified bronchus or lung Pulmonary embolism Qualifiers: Pulmonary embolism type: unspecified Chronicity: chronic Acute cor pulmonale presence: without acute cor pulmonale Qualified Code(s): I27.82 - Chronic pulmonary embolism Hyperlipidemia Qualifiers: Hyperlipidemia type: unspecified Qualified Code(s): E78.5 - Hyperlipidemia, unspecified
[2018-08-26 16:44] LABS: BASOPHILS # (AUTO) 0.2 X10^3/uL (0.0-0.1); BASOPHILS % (AUTO) 2.5 % (0.2-1.0); EOSINOPHILS % (AUTO) 0.2 % (0.9-2.9); HEMATOCRIT 35.5 % (36.0-47.0); HEMOGLOBIN 11.4 g/dL (12.0-16.0); LYMPHOCYTES # (AUTO) 0.8 X10^3/uL (1.3-2.9); LYMPHOCYTES % (AUTO) 8.6 % (21.0-51.0); MEAN CORPUSCULAR HEMOGLOBIN 27.3 pg (27.0-34.0); MEAN CORPUSCULAR HGB CONC 32.1 g/dL (33.0-35.0); MEAN CORPUSCULAR VOLUME 85.2 fL (80.0-100.0); MEAN PLATELET VOLUME 8.1 fL (7.4-11.0); MONOCYTES # (AUTO) 0.6 x10^3/uL (0.3-0.8); MONOCYTES % (AUTO) 6.5 % (0.0-13.0); NEUTROPHILS # (AUTO) 7.4 x10^3/uL (2.2-4.8); NEUTROPHILS % (AUTO) 82.2 % (42.0-75.0); PLATELET COUNT 248 X10^3/uL (150.0-450.0); RED BLOOD COUNT 4.17 X10^6/uL (3.5-5.4); RED CELL DISTRIBUTION WIDTH 19.9 % (11.6-16.5)
[2018-08-26 16:48] LABS: ABG ALLEN TEST POS; ABG BASE EXCESS 4.7 mmol/L (-2.0-2.0); ABG HCO3 28.2 mmol/L (22-26)
--- NOTE | 2018-08-26 16:50 | RAD ---
HISTORY: Altered mental status. Study: AP portable chest Comparison: 08/05/2018 Findings: There appears to be mild diffuse chronic interstitial scarring, unchanged. Slight interval increase in the hazy opacity in the right lung base is noted suggesting progression of pneumonia and/or pleural fluid. Borderline cardiomegaly is noted. No acute bony abnormalities are identified. IMPRESSION: 1. Borderline cardiomegaly without evidence of failure. 2. Increasing infiltrate/effusion on the right suggesting progression of pneumonia and/or slight increase in effusion. Reported By:
--- NOTE | 2018-08-26 16:53 | CT ---
HEAD CT WITHOUT IV CONTRAST CLINICAL INDICATION: Altered mental status TECHNIQUE: Axial CT images from skull base to vertex without IV contrast.Dose reduction techniques including Automated Exposure Control (AEC) and adjustment of mA and kV were utlized. COMPARISON: None FINDINGS: Transcortical hypoattenuation in the region of the left insula and anterior insular ribbon as well as the left frontal lobe cortex. There is during of payne-white borders. There is no evidence of intracranial hemorrhage, mass or mass effect, or abnormal extra-axial collection. The density of the larger dural venous sinuses is normal. The ventricles are normal in size, shape and position. The skull base and calvarium are normal. The included paranasal sinuses and mastoid air cells are predominantly clear. IMPRESSION: 1. Findings highly concerning for acute left frontal lobe infarct. Reported By:
[2018-08-26 17:11] LABS: ALANINE AMINOTRANSFERASE 20 Units/L (12-78); ALBUMIN 3.8 g/dL (3.4-5.0); ALKALINE PHOSPHATASE 92 Units/L (46-116); ASPARTATE AMINO TRANSFERASE 29 Units/L (15-37); BLOOD UREA NITROGEN 10 mg/dL (7-18); CALCIUM 10.4 mg/dL (8.5-10.1); CARBON DIOXIDE 28.6 mmol/L (21-32); CHLORIDE 105 mmol/L (98-107); CREATININE 0.81 mg/dL (0.55-1.02); SODIUM 142 mmol/L (136-145); TOTAL PROTEIN 7.5 g/dL (6.4-8.2); eGFR NON BLACK RACES > 60 (>60)
[2018-08-26] MEDS ORDERED: SALINE 3% 15 ML NEB TX NEB ONE (20:39)
[2018-08-26] MEDS: DUONEB 0.5 MG/3 MG NEB SCH (20:47)
[2018-08-26 23:27] VITALS: BMI 26.4
--- NOTE | 2018-08-27 05:11 | RAD ---
Chest, 1 view Indication: Frontal lobe infarct. Comparison: 08/26/2018. Findings: The cardiac silhouette is stable. There is slightly worsened opacification of the right mid to lower lung. The right upper lung and left lung are grossly clear. No pneumothorax. Impression: Slightly worsened right lung airspace disease with possible pleural effusion. Reported By:
[2018-08-27 05:28] LABS: BASOPHILS # (AUTO) 0.3 X10^3/uL (0.0-0.1); BASOPHILS % (AUTO) 3.2 % (0.2-1.0); EOSINOPHILS # (AUTO) 0.1 x10^3/uL (0.0-0.2); EOSINOPHILS % (AUTO) 0.6 % (0.9-2.9); HEMATOCRIT 32.4 % (36.0-47.0); HEMOGLOBIN 10.4 g/dL (12.0-16.0); LYMPHOCYTES # (AUTO) 1.1 X10^3/uL (1.3-2.9); LYMPHOCYTES % (AUTO) 13.8 % (21.0-51.0); MEAN CORPUSCULAR HEMOGLOBIN 27.3 pg (27.0-34.0); MEAN CORPUSCULAR HGB CONC 32.1 g/dL (33.0-35.0); MEAN CORPUSCULAR VOLUME 85.2 fL (80.0-100.0); MEAN PLATELET VOLUME 8.7 fL (7.4-11.0); MONOCYTES # (AUTO) 0.4 x10^3/uL (0.3-0.8); MONOCYTES % (AUTO) 4.8 % (0.0-13.0); NEUTROPHILS # (AUTO) 6.3 x10^3/uL (2.2-4.8); NEUTROPHILS % (AUTO) 77.6 % (42.0-75.0); PLATELET COUNT 214 X10^3/uL (150.0-450.0); RED BLOOD COUNT 3.81 X10^6/uL (3.5-5.4); RED CELL DISTRIBUTION WIDTH 19.7 % (11.6-16.5); WHITE BLOOD COUNT 8.2 X10^3/uL (3.6-10.0)
[2018-08-27 05:57] LABS: ALANINE AMINOTRANSFERASE 18 Units/L (12-78); ALBUMIN 3.3 g/dL (3.4-5.0); ALKALINE PHOSPHATASE 78 Units/L (46-116); ASPARTATE AMINO TRANSFERASE 24 Units/L (15-37); BLOOD UREA NITROGEN 11 mg/dL (7-18); CALCIUM 9.5 mg/dL (8.5-10.1); CARBON DIOXIDE 26.5 mmol/L (21-32); CHLORIDE 107 mmol/L (98-107); COR CA(FOR HYPOALB) 10.1 mg/dL (8.5-10.1); CREATININE 0.79 mg/dL (0.55-1.02); SODIUM 143 mmol/L (136-145); TOTAL PROTEIN 6.4 g/dL (6.4-8.2); eGFR NON BLACK RACES > 60 (>60)
[2018-08-27] MEDS ORDERED: POTASSIUM CHL 60 MEQ/NS 0.45% 500 ML IV PRN (06:36)
[2018-08-27] MEDS ORDERED: MICRO K EXTEN CAP 10 MEQ PO PRN (06:36)
[2018-08-27] MEDS ORDERED: KLOR-CON PO PRN (06:36)
[2018-08-27] MEDS ORDERED: MAGNESIUM SULFATE 1 GRAM/100 mL PREMIX 1 GM/100 ML BAG IV PRN (06:36)
[2018-08-27] MEDS ORDERED: POTASSIUM CHLORIDE LIQ 20 MEQ UDC PO PRN (06:36)
[2018-08-27] MEDS ORDERED: K-DUR TAB 20 MEQ PO PRN (06:36)
[2018-08-27] MEDS ORDERED: POTASSIUM CHL 40 MEQ/NS 0.45% 500 ML IV PRN (06:36)
[2018-08-27] MEDS ORDERED: K-RIDER 10 MEQ/NS 100 ML 10 MEQ/100 ML BAG IV PRN (06:36)
[2018-08-27] MEDS: DUONEB 0.5 MG/3 MG NEB SCH ×4 (08:34→20:44)
[2018-08-27] MEDS ORDERED: ASPIRIN PO SCH (09:00)
[2018-08-27] MEDS ORDERED: KLONOPIN TAB 1 MG PO PRN (11:06)
--- NOTE | 2018-08-27 11:12 | DR.H&P ---
H&P - History & Physical for Day of: H&P Date: 08/26/18 - Chief Complaint Chief Complaint: confusion, impaired speech per family - History of Present Illness History of Present Illness: 73 WF ER ADMISSION AFTER PRESENTING WITH FAMILY STATING PT HAD ONSET 08/26 AFTERNOON WITH CONFUSION, NON VERBAL. PT WOULD NOT SPEAK, DID NOT RECOGNIZE FAMILY - Past Medical History Past Medical History: Hypertension, COPD - Past Surgical History Surgical History: Cholecystectomy, Hysterectomy - Family History Family Medical History: Cancer - Social History Does patient currently use any type of tobacco product: No Have you used tobacco products in the last 12 months: Yes Type of Tobacco Use: Cigarettes Does any household member use tobacco: No Alcohol Use: None Drug Use: None - Medications Home Medications: codeine Allergy (Verified 08/26/18 15:14) - Review of Systems Constitutional: Weakness Eyes: No Symptoms Reported ENT: No Symptoms Reported Respiratory: Shortness of Breath, Wheezing Cardiovascular: No Symptoms Reported Genitourinary: No Symptoms Reported Musculoskeletal: No Symptoms Reported Skin: No Symptoms Reported Neurological: Change in Speech, Confusion. denies: Weakness, Numbness - Physical Exam Vital Signs: Temperature 98.4 F Pulse Rate [Left Brachial] 97 Pulse Rate 100 Respiratory Rate 26 Blood Pressure [Right Arm] 121/58 Blood Pressure [Left Arm] 143/76 Blood Pressure 139/64 O2 Sat by Pulse Oximetry 98 Oriented: Person Eyes: Normal Ear: Normal Throat: Normal Respiratory: RML Diminished, RLL Diminished Cardiovascular: Normal. negative: Edema : Normal Auscultation: Bowel Sounds: Normal Palpation: Normal Tenderness: Normal Skin: Decreased Turgur Musculoskeletal: Normal Psychiatric: Anxiety Affect: Anxious Speech Pattern: Clear, Appropriate - Assessment/Plan (1) Focal infarction of brain Status: Acute Plan: ACUTE CVA, ADMIT ICU NEURO CHECK. BP LIPID CONTROL, STATIN THERAPY ASPIRIN. SUPPLEMENTAL O2, CXR, EKG ON ADMISSION IN ER. CT HEAD IN ER, MRI HEAD ON WEDNESDAY. CTA CAROTIDS. STRICT I & OS (2) Hypertension Status: Chronic (3) Hyperlipidemia Status: Chronic (4) GERD (gastroesophageal reflux disease) Status: Chronic (5) Pulmonary embolism Qualifiers: Status: Acute (6) Lung malignancy Qualifiers: Laterality: unspecified laterality Lung location: unspecified part of lung Qualified Code(s): C34.90 - Malignant neoplasm of unspecified part of unspecified bronchus or lung Status: Acute - Allergies Allergies/Adverse Reactions: Allergies Allergy/AdvReac Type Severity Reaction Status Date / Time codeine Allergy Verified 08/26/18 15:14
--- NOTE | 2018-08-27 11:17 | PCM.PROG ---
Progress Note - Progress Note for Day of Date of Exam: 08/27/18 - Subjective Subjective: WF ER ADMISSION WITH ACUTE LEFT FRONTAL LOBE INFARCT. PT IS ON ASPIRIN STATIN SUPPLEMENTAL O2, BP CONTROL. PT HAS NO FOCAL DEFICITS THIS AM, MILDLY SLOW TO RESPOND WITH APPROPRIATE RESPONSES. PTS DAUGHTER REPORTS SHE HAS RECENTLY BEEN DIAGNOSED WITH LUNG CANCER AND PE'S, ON ELIQUIS AT HOME. PT STATES SHE HAD BEEN TAKING ALL OF HER BP MEDICATION. PLAN TO OBTAIN MRI AND CTA CAROTIDS. - Past Medical Family Social History Past Med/Fam/Surg Hx: No changes since H&P Allergies: Allergies codeine Allergy (Verified 08/26/18 15:14) - Review of Systems ROS: No change since H&P - Vital Signs and I&O's Vital Signs: Temperature 98.4 F Pulse Rate [Left Brachial] 97 Pulse Rate 100 Respiratory Rate 26 Blood Pressure [Right Arm] 121/58 Blood Pressure [Left Arm] 143/76 Blood Pressure 139/64 O2 Sat by Pulse Oximetry 98 Intake and Output: Intake & Output 08/24/18 08/25/18 08/26/18 08/27/18 11:59 11:59 11:59 11:59 Intake Total 260 / 260 Output Total 0 / 0 Balance 260 / 260 - Physical Exam Oriented: Person Eyes: Normal Ear: Normal Throat: Normal Cardiovascular: Normal. negative: Edema : Normal Auscultation: Bowel Sounds: Normal Tenderness: Normal Skin: Decreased [place] Musculoskeletal: Normal Psychiatric: Anxiety Mood Description: Calm Affect: Anxious Speech Pattern: Clear, Appropriate - Laboratory and Diagnostics Result Diagrams: 08/27/18 04:08 08/27/18 04:08 Labs: Laboratory WBC 8.2 X10^3/uL (3.6-10.0) 08/27/18 04:08 RBC 3.81 X10^6/uL (3.5-5.4) 08/27/18 04:08 Hgb 10.4 g/dL (12.0-16.0) L 08/27/18 04:08 Hct 32.4 % (36.0-47.0) L 08/27/18 04:08 MCV 85.2 fL (80.0-100.0) 08/27/18 04:08 MCH 27.3 pg (27.0-34.0) 08/27/18 04:08 MCHC 32.1 g/dL (33.0-35.0) L 08/27/18 04:08 RDW 19.7 % (11.6-16.5) H 08/27/18 04:08 Plt Count 214 X10^3/uL (150.0-450.0) 08/27/18 04:08 MPV 8.7 fL (7.4-11.0) 08/27/18 04:08 Neut % (Auto) 77.6 % (42.0-75.0) H 08/27/18 04:08 Lymph % (Auto) 13.8 % (21.0-51.0) L 08/27/18 04:08 [place] % (Auto) 4.8 % (0.0-13.0) 08/27/18 04:08 Eos % (Auto) 0.6 % (0.9-2.9) L 08/27/18 04:08 Baso % (Auto) 3.2 % (0.2-1.0) H 08/27/18 04:08 Neut # (Auto) 6.3 x10^3/uL (2.2-4.8) H 08/27/18 04:08 Lymph # (Auto) 1.1 X10^3/uL (1.3-2.9) L 08/27/18 04:08 [place] # (Auto) 0.4 x10^3/uL (0.3-0.8) 08/27/18 04:08 Eos # (Auto) 0.1 x10^3/uL (0.0-0.2) 08/27/18 04:08 Baso # (Auto) 0.3 X10^3/uL (0.0-0.1) H 08/27/18 04:08 Absolute Nucleated RBC 0.0 /100WBC 08/27/18 04:08 Sample Site Lr 08/26/18 16:43 ABG pH 7.490 (7.35-7.45) H 08/26/18 16:43 ABG pCO2 37.0 mmHg (35.0-45.0) 08/26/18 16:43 ABG pO2 54.0 mmHg (80.0-100.0) L 08/26/18 16:43 ABG HCO3 28.2 mmol/L (22-26) H 08/26/18 16:43 ABG O2 Saturation 90.0 % (90-100) 08/26/18 16:43 ABG Base Excess 4.7 mmol/L (-2.0-2.0) H 08/26/18 16:43 Abhinav Test Pos 08/26/18 16:43 A-a Gradient 49.0 mmHg 08/26/18 16:43 FiO2 21.0 08/26/18 16:43 Blood Gas Comments Tiffanie well gmb 08/26/18 16:43 Sodium 143 mmol/L (136-145) 08/27/18 04:08 Corrected Sodium TNP 08/27/18 04:08 Potassium 3.7 mmol/L (3.5-5.1) 08/27/18 04:08 Chloride 107 mmol/L (98-107) 08/27/18 04:08 Carbon Dioxide 26.5 mmol/L (21-32) 08/27/18 04:08 BUN 11 mg/dL (7-18) 08/27/18 04:08 Creatinine 0.79 mg/dL (0.55-1.02) 08/27/18 04:08 Est GFR (MDRD) Af Amer > 60 (>60) 08/27/18 04:08 Est GFR (MDRD) Non-Af > 60 (>60) 08/27/18 04:08 Glucose 79 mg/dL (65-99) 08/27/18 04:08 POC Glucose (mg/dL) 87 mg/dL (65-99) 08/27/18 05:31 Lactic Acid 1.2 mmol/L (0.4-2.0) 08/26/18 18:23 Calcium 9.5 mg/dL (8.5-10.1) 08/27/18 04:08 Corrected Calcium 10.1 mg/dL (8.5-10.1) 08/27/18 04:08 Magnesium 1.9 mg/dL (1.7-2.9) 08/27/18 04:08 Total Bilirubin 0.60 mg/dL (0.2-1.0) 08/27/18 04:08 AST 24 Units/L (15-37) 08/27/18 04:08 ALT 18 Units/L (12-78) 08/27/18 04:08 Alkaline Phosphatase 78 Units/L (46-116) 08/27/18 04:08 Ammonia 14 umol/L (11-32) 08/26/18 16:41 Total Protein 6.4 g/dL (6.4-8.2) 08/27/18 04:08 Albumin 3.3 g/dL (3.4-5.0) L 08/27/18 04:08 Globulin 3.1 g/dL (2.5-4.5) 08/27/18 04:08 Albumin/Globulin Ratio 1.1 Ratio (1.1-2.1) 08/27/18 04:08 - Plan (1) Focal infarction of brain Status: Acute Plan: ACUTE CVA, NEURO CHECKS, PT/OT EVALUATION. BP LIPID CONTROL, STATIN THERAPY ASPIRIN, RESUMED ELIQUIS. SUPPLEMENTAL O2, CXR, EKG ON ADMISSION IN ER. CT HEAD IN ER, MRI HEAD ON WEDNESDAY. CTA CAROTIDS. STRICT I & OS (2) Hypertension Status: Chronic (3) Hyperlipidemia Status: Chronic (4) GERD (gastroesophageal reflux disease) Status: Chronic (5) Pulmonary embolism Status: Acute Qualifiers: (6) Lung malignancy Status: Acute Qualifiers: Laterality: unspecified laterality Lung location: unspecified part of lung Qualified Code(s): C34.90 - Malignant neoplasm of unspecified part of unspecified bronchus or lung
[2018-08-27] MEDS ORDERED: NS 100 ML IV 100 ML ONE ×2 (11:34→15:10)
[2018-08-27] MEDS ORDERED: LEXAPRO ONE (13:47)
--- NOTE | 2018-08-27 13:50 | CT ---
HISTORY: Acute CVA Study: CTA neck with and without contrast Comparison: CT a chest August 01, 2018 Technique: Multiple axial images of the neck were obtained from skull base to the aortic arch before and after the administration of IV contrast. Sagittal and coronal reformats were performed and reviewed. 3D and MIPS were provided for this examination as well. Findings: The visualized portions of the posterior fossa and orbits are unremarkable in appearance. The parotid glands, submandibular glands, and thyroid gland are unremarkable in their contrast appearance. Calcific plaque is noted at the carotid bulbs bilaterally. No flow-limiting stenosis is identified involving the carotid arteries bilaterally. There is tortuosity of the bilateral common and internal carotid arteries. The bilateral vertebral arteries are patent. There is left vertebral artery dominance and tortuosity. Visualized portions of the intracranial circulation are patent without flow-limiting stenosis or aneurysm. Multiple enlarged mediastinal lymph nodes are noted with the largest measuring 2.3 cm within the right lower paratracheal region. 1.3 cm prevascular lymph node. 1.5 cm subcarinal lymph node is noted. 1.5 cm right perihilar lymph node. The nasopharynx, oropharynx, hypopharynx are unremarkable. The larynx appears symmetric. The bony structures appear intact. Partially visualized right pleural effusion. Right interlobular septal thickening. Emphysematous changes of the lungs. IMPRESSION: No flow limiting stenosis identified. Similar mediastinal lymphadenopathy as described on August 01, 2018 CT chest. Again, findings are suspicious for malignancy and follow-up in this regard is recommended. Mildly decreased, partially visualized right pleural effusion. Reported By:
[2018-08-27] MEDS: ELIQUIS PO SCH ×2 (13:57→23:00)
[2018-08-27] MEDS: LEXAPRO PO SCH (13:57)
[2018-08-27] MEDS: ECOTRIN TAB 325 MG PO SCH (13:58)
--- NOTE | 2018-08-27 16:21 | CT ---
HISTORY: Frontal lobe infarct Study: CT brain without contrast Comparison: None Technique: Multiple axial images of the brain were obtained from the skull base to the vertex with administration of IV contrast. Findings: Images again demonstrate a focal area of decreased attenuation within the left frontal lobe which is slightly more pronounced than on prior exam keeping with an evolving acute/subacute infarct. No extra-axial fluid collections are seen. The ventricular system is symmetric and nondilated. No definite abnormal enhancing masses are appreciated on the postcontrast images. IMPRESSION: 1. Findings compatible with acute/subacute infarct involving the left frontal lobe as noted above. Recommend clinical correlation and continued follow-up as indicated for further evaluation. Reported By:
[2018-08-27] MEDS ORDERED: ASPIRIN PO ONE (18:15)
[2018-08-27] MEDS: ROBITUSSIN DM PO PRN (18:32)
[2018-08-27] MEDS: LIPITOR TAB 40 MG PO SCH (20:38)
[2018-08-27] MEDS: NEURONTIN CAP 300 MG PO SCH (20:38)
[2018-08-28 05:29] LABS: BASOPHILS # (AUTO) 0.2 X10^3/uL (0.0-0.1); BASOPHILS % (AUTO) 2.7 % (0.2-1.0); EOSINOPHILS # (AUTO) 0.1 x10^3/uL (0.0-0.2); HEMATOCRIT 32.4 % (36.0-47.0); HEMOGLOBIN 10.4 g/dL (12.0-16.0); LYMPHOCYTES # (AUTO) 0.9 X10^3/uL (1.3-2.9); LYMPHOCYTES % (AUTO) 12.1 % (21.0-51.0); MEAN CORPUSCULAR HEMOGLOBIN 27.5 pg (27.0-34.0); MEAN CORPUSCULAR HGB CONC 32.1 g/dL (33.0-35.0); MEAN CORPUSCULAR VOLUME 85.7 fL (80.0-100.0); MEAN PLATELET VOLUME 8.5 fL (7.4-11.0); MONOCYTES # (AUTO) 0.8 x10^3/uL (0.3-0.8); MONOCYTES % (AUTO) 11.3 % (0.0-13.0); NEUTROPHILS # (AUTO) 5.3 x10^3/uL (2.2-4.8); NEUTROPHILS % (AUTO) 72.9 % (42.0-75.0); PLATELET COUNT 216 X10^3/uL (150.0-450.0); RED BLOOD COUNT 3.78 X10^6/uL (3.5-5.4); RED CELL DISTRIBUTION WIDTH 19.7 % (11.6-16.5); WHITE BLOOD COUNT 7.3 X10^3/uL (3.6-10.0)
[2018-08-28 05:42] LABS: ALANINE AMINOTRANSFERASE 16 Units/L (12-78); ALBUMIN 3.2 g/dL (3.4-5.0); ALKALINE PHOSPHATASE 80 Units/L (46-116); ASPARTATE AMINO TRANSFERASE 20 Units/L (15-37); BLOOD UREA NITROGEN 12 mg/dL (7-18); CALCIUM 9.5 mg/dL (8.5-10.1); CHLORIDE 107 mmol/L (98-107); COR CA(FOR HYPOALB) 10.1 mg/dL (8.5-10.1); CREATININE 0.77 mg/dL (0.55-1.02); MAGNESIUM 1.9 mg/dL (1.7-2.9); SODIUM 144 mmol/L (136-145); TOTAL PROTEIN 6.5 g/dL (6.4-8.2); eGFR NON BLACK RACES > 60 (>60)
[2018-08-28] MEDS ORDERED: LEXAPRO ONE (08:30)
[2018-08-28] MEDS: SINGULAIR TAB 10 MG PO SCH (08:34)
[2018-08-28] MEDS: LEXAPRO PO SCH (08:35)
[2018-08-28] MEDS: SYNTHROID 50 mcg TAB PO SCH (08:35)
[2018-08-28] MEDS: ROBITUSSIN DM PO PRN (08:35)
[2018-08-28] MEDS: TOPROL XL PO SCH (08:35)
[2018-08-28] MEDS: ECOTRIN TAB 325 MG PO SCH (08:35)
[2018-08-28] MEDS: ELIQUIS PO SCH ×2 (08:35→20:10)
[2018-08-28] MEDS: DUONEB 0.5 MG/3 MG NEB SCH ×4 (08:58→21:31)
[2018-08-28] MEDS ORDERED: NS 1000 ML 1,000 ML ONE (09:24)
[2018-08-28] MEDS: NS 1000 ML 1,000 ML IV SCH ×2 (09:30→20:14)
[2018-08-28 10:13] LABS: BILIRUBIN,URINE NEGATIVE (NEGATIVE); BLOOD/HEMOGLOBIN,URINE NEGATIVE (NEGATIVE); GLUCOSE, URINE NEGATIVE (NEGATIVE); KETONES,URINE NEGATIVE (NEGATIVE); LEUKOCYTE ESTERASE ,URINE NEGATIVE (NEGATIVE); NITRITES,URINE NEGATIVE (NEGATIVE); PH,URINE 6.5 (5.0 - 8.0); PROTEIN,URINE 1+ (NEGATIVE); UROBILINOGEN,URINE NORMAL (NORMAL)
[2018-08-28 10:19] LABS: APPEARANCE,URINE CLEAR (CLEAR); COLOR,URINE YELLOW (YELLOW)
[2018-08-28 10:20] LABS: BACTERIA,URINE NEGATIVE /HPF (NEGATIVE); RBC,URINE NONE SEEN /HPF (NONE SEEN); SQUAMOUS EPITHELIAL CELL,UR RARE /HPF (NEGATIVE)
[2018-08-28] MEDS: NEURONTIN CAP 300 MG PO SCH (20:11)
[2018-08-28] MEDS: LIPITOR TAB 40 MG PO SCH (20:11)
[2018-08-29 05:36] LABS: BASOPHILS # (AUTO) 0.2 X10^3/uL (0.0-0.1); BASOPHILS % (AUTO) 2.6 % (0.2-1.0); EOSINOPHILS # (AUTO) 0.1 x10^3/uL (0.0-0.2); EOSINOPHILS % (AUTO) 1.2 % (0.9-2.9); HEMATOCRIT 29.7 % (36.0-47.0); HEMOGLOBIN 9.5 g/dL (12.0-16.0); LYMPHOCYTES % (AUTO) 13.9 % (21.0-51.0); MEAN CORPUSCULAR HEMOGLOBIN 27.6 pg (27.0-34.0); MEAN CORPUSCULAR HGB CONC 32.1 g/dL (33.0-35.0); MEAN CORPUSCULAR VOLUME 86.2 fL (80.0-100.0); MEAN PLATELET VOLUME 8.6 fL (7.4-11.0); MONOCYTES # (AUTO) 0.7 x10^3/uL (0.3-0.8); MONOCYTES % (AUTO) 9.5 % (0.0-13.0); NEUTROPHILS # (AUTO) 5.4 x10^3/uL (2.2-4.8); NEUTROPHILS % (AUTO) 72.8 % (42.0-75.0); PLATELET COUNT 178 X10^3/uL (150.0-450.0); RED BLOOD COUNT 3.45 X10^6/uL (3.5-5.4); RED CELL DISTRIBUTION WIDTH 19.8 % (11.6-16.5); WHITE BLOOD COUNT 7.4 X10^3/uL (3.6-10.0)
[2018-08-29 05:40] LABS: ALANINE AMINOTRANSFERASE 17 Units/L (12-78); ALBUMIN 2.9 g/dL (3.4-5.0); ALKALINE PHOSPHATASE 75 Units/L (46-116); ASPARTATE AMINO TRANSFERASE 21 Units/L (15-37); BLOOD UREA NITROGEN 14 mg/dL (7-18); CALCIUM 9.1 mg/dL (8.5-10.1); CARBON DIOXIDE 24.9 mmol/L (21-32); CHLORIDE 109 mmol/L (98-107); CREATININE 0.72 mg/dL (0.55-1.02); SODIUM 144 mmol/L (136-145); TOTAL PROTEIN 5.9 g/dL (6.4-8.2); eGFR NON BLACK RACES > 60 (>60)
[2018-08-29] MEDS: NS 1000 ML 1,000 ML IV SCH ×3 (06:02→19:02)
[2018-08-29] MEDS ORDERED: LEXAPRO ONE (07:51)
[2018-08-29] MEDS: SYNTHROID 50 mcg TAB PO SCH (07:59)
[2018-08-29] MEDS: ELIQUIS PO SCH ×2 (07:59→20:32)
[2018-08-29] MEDS: ECOTRIN TAB 325 MG PO SCH (07:59)
[2018-08-29] MEDS: SINGULAIR TAB 10 MG PO SCH (07:59)
[2018-08-29] MEDS: LEXAPRO PO SCH (07:59)
[2018-08-29] MEDS: TOPROL XL PO SCH (07:59)
[2018-08-29] MEDS: DUONEB 0.5 MG/3 MG NEB SCH ×4 (08:16→20:58)
--- NOTE | 2018-08-29 08:33 | PCM.PROG ---
Progress Note - Progress Note for Day of Date of Exam: 08/28/18 - Subjective Subjective: [facility]F ER ADMISSION WITH ACUTE LEFT FRONTAL LOBE INFARCT. PT IS ON ASPIRIN STATIN SUPPLEMENTAL O2, BP CONTROL. PT HAS NO FOCAL DEFICITS THIS AM, MILDLY SLOW TO RESPOND WITH APPROPRIATE RESPONSES. PTS DAUGHTER REPORTS SHE HAS RECENTLY BEEN DIAGNOSED WITH LUNG CANCER AND PE'S, ON ELIQUIS AT HOME. PT STATES SHE HAD BEEN TAKING ALL OF HER BP MEDICATION. PT HAD CTA OF CAROTIDS WITH CONTRAST, WITHOUT SIGNIFICANT STENOSIS AND CT HEAD WITH CONTRAST, REVEALED Findings compatible with acute/subacute infarct involving the left frontal lobe, NO SIGNS OF METASTATIC LESIONS. PT CONTINUES WITH "NOT TALKING VERY MUCH, JUST NOT ACTING LIKE HERSELF" PER SPOUSE AND DAUGHTER. PLAN TO OBTAIN CT ABD/PELVIS WITH CONTRAST R/O METASTATIC LUNG DISEASE. BP STABLE, BUN 12 CREAT 0.77 - Past Medical Family Social History Past Med/Fam/Surg Hx: No changes since H&P Allergies: Allergies codeine Allergy (Verified 08/26/18 15:14) - Review of Systems ROS: No change since H&P - Vital Signs and I&O's Vital Signs: Temperature 98.4 F Pulse Rate [Left Brachial] 92 Pulse Rate 67 Respiratory Rate 23 Blood Pressure [Right Arm] 134/65 Blood Pressure [Left Arm] 143/76 Blood Pressure 131/60 O2 Sat by Pulse Oximetry 96 Intake and Output: Intake & Output 08/26/18 08/27/18 08/28/18 08/29/18 11:59 11:59 11:59 11:59 Intake Total 260 / 260 830 / 830 2760 / 2760 Output Total 0 / 0 1974 Balance 260 / 260 830 / 830 785 / 785 - Physical Exam Oriented: Person Eyes: Normal Ear: Normal Throat: Normal Respiratory: Diminished, Wheezes Cardiovascular: Normal. negative: Edema : Normal Auscultation: Bowel Sounds: Normal Tenderness: Normal Skin: Decreased Turgur Musculoskeletal: Normal Psychiatric: Anxiety Mood Description: Calm Affect: Anxious Speech Pattern: Clear, Appropriate - Laboratory and Diagnostics Result Diagrams: 08/29/18 04:11 08/29/18 04:11 Labs: 08/26/18 21:30 Sputum - Expectorated Sputum Sputum Culture - Preliminary 08/26/18 21:30 Sputum - Expectorated Sputum - Final 08/26/18 18:23 Blood Blood Culture - Preliminary 08/26/18 18:17 Blood Blood Culture - Preliminary Laboratory WBC 7.4 X10^3/uL (3.6-10.0) 08/29/18 04:11 RBC 3.45 X10^6/uL (3.5-5.4) L 08/29/18 04:11 Hgb 9.5 g/dL (12.0-16.0) L 08/29/18 04:11 Hct 29.7 % (36.0-47.0) L 08/29/18 04:11 MCV 86.2 fL (80.0-100.0) 08/29/18 04:11 MCH 27.6 pg (27.0-34.0) 08/29/18 04:11 MCHC 32.1 g/dL (33.0-35.0) L 08/29/18 04:11 RDW 19.8 % (11.6-16.5) H 08/29/18 04:11 Plt Count 178 X10^3/uL (150.0-450.0) 08/29/18 04:11 MPV 8.6 fL (7.4-11.0) 08/29/18 04:11 Neut % (Auto) 72.8 % (42.0-75.0) 08/29/18 04:11 Lymph % (Auto) 13.9 % (21.0-51.0) L 08/29/18 04:11 [place] % (Auto) 9.5 % (0.0-13.0) 08/29/18 04:11 Eos % (Auto) 1.2 % (0.9-2.9) 08/29/18 04:11 Baso % (Auto) 2.6 % (0.2-1.0) H 08/29/18 04:11 Neut # (Auto) 5.4 x10^3/uL (2.2-4.8) H 08/29/18 04:11 Lymph # (Auto) 1.0 X10^3/uL (1.3-2.9) L 08/29/18 04:11 [place] # (Auto) 0.7 x10^3/uL (0.3-0.8) 08/29/18 04:11 Eos # (Auto) 0.1 x10^3/uL (0.0-0.2) 08/29/18 04:11 Baso # (Auto) 0.2 X10^3/uL (0.0-0.1) H 08/29/18 04:11 Absolute Nucleated RBC 0.1 /100WBC 08/29/18 04:11 INR Target Range - 08/27/18 12:11 INR 1.06 (0.8-1.3) 08/27/18 12:11 APTT 25.5 SECONDS (22.9-36.5) 08/27/18 12:11 PTT Comment - 08/27/18 12:11 Sample Site Lr 08/26/18 16:43 ABG pH 7.490 (7.35-7.45) H 08/26/18 16:43 ABG pCO2 37.0 mmHg (35.0-45.0) 08/26/18 16:43 ABG pO2 54.0 mmHg (80.0-100.0) L 08/26/18 16:43 ABG HCO3 28.2 mmol/L (22-26) H 08/26/18 16:43 ABG O2 Saturation 90.0 % (90-100) 08/26/18 16:43 ABG Base Excess 4.7 mmol/L (-2.0-2.0) H 08/26/18 16:43 Abhinav Test Pos 08/26/18 16:43 A-a Gradient 49.0 mmHg 08/26/18 16:43 FiO2 21.0 08/26/18 16:43 Blood Gas Comments Tiffanie well gmb 08/26/18 16:43 Sodium 144 mmol/L (136-145) 08/29/18 04:11 Corrected Sodium TNP 08/29/18 04:11 Potassium 3.8 mmol/L (3.5-5.1) 08/29/18 04:11 Chloride 109 mmol/L (98-107) H 08/29/18 04:11 Carbon Dioxide 24.9 mmol/L (21-32) 08/29/18 04:11 BUN 14 mg/dL (7-18) 08/29/18 04:11 Creatinine 0.72 mg/dL (0.55-1.02) 08/29/18 04:11 Est GFR (MDRD) Af Amer > 60 (>60) 08/29/18 04:11 Est GFR (MDRD) Non-Af > 60 (>60) 08/29/18 04:11 Glucose 92 mg/dL (65-99) 08/29/18 04:11 POC Glucose (mg/dL) 100 mg/dL (65-99) H 08/29/18 05:30 Lactic Acid 1.2 mmol/L (0.4-2.0) 08/26/18 18:23 Calcium 9.1 mg/dL (8.5-10.1) 08/29/18 04:11 Corrected Calcium 10.0 mg/dL (8.5-10.1) 08/29/18 04:11 Magnesium 1.9 mg/dL (1.7-2.9) 08/28/18 04:03 Total Bilirubin 0.30 mg/dL (0.2-1.0) 08/29/18 04:11 AST 21 Units/L (15-37) 08/29/18 04:11 ALT 17 Units/L (12-78) 08/29/18 04:11 Alkaline Phosphatase 75 Units/L (46-116) 08/29/18 04:11 Ammonia 14 umol/L (11-32) 08/26/18 16:41 Total Protein 5.9 g/dL (6.4-8.2) L 08/29/18 04:11 Albumin 2.9 g/dL (3.4-5.0) L 08/29/18 04:11 Globulin 3.0 g/dL (2.5-4.5) 08/29/18 04:11 Albumin/Globulin Ratio 1.0 Ratio (1.1-2.1) L 08/29/18 04:11 Specimen Type Catherized urine 08/28/18 09:37 Urine Color Yellow (YELLOW) 08/28/18 09:37 Urine Appearance Clear (CLEAR) 08/28/18 09:37 Urine pH 6.5 (5.0 - 8.0) 08/28/18 09:37 Ur Specific [place] 1.015 (1.000-1.030) 08/28/18 09:37 Urine Protein 1+ (NEGATIVE) 08/28/18 09:37 Urine Glucose (UA) Negative (NEGATIVE) 08/28/18 09:37 Urine Ketones Negative (NEGATIVE) 08/28/18 09:37 Urine Occult Blood Negative (NEGATIVE) 08/28/18 09:37 Urine Nitrite Negative (NEGATIVE) 08/28/18 09:37 Urine Bilirubin Negative (NEGATIVE) 08/28/18 09:37 Urine Urobilinogen Normal (NORMAL) 08/28/18 09:37 Ur Leukocyte Esterase Negative (NEGATIVE) 08/28/18 09:37 Urine RBC None seen /HPF (NONE SEEN) 08/28/18 09:37 Urine WBC None seen /HPF (NONE SEEN) 08/28/18 09:37 Ur Squamous Epith Cells Rare /HPF (NEGATIVE) 08/28/18 09:37 Urine Bacteria Negative /HPF (NEGATIVE) 08/28/18 09:37 Ur Culture Indicated? Yes/culture set up 08/28/18 09:37 - Plan (1) Focal infarction of brain Status: Acute Plan: ACUTE CVA, NEURO CHECKS, PT/OT EVALUATION. BP LIPID CONTROL, STATIN THERAPY ASPIRIN, RESUMED ELIQUIS. SUPPLEMENTAL O2, CXR, EKG ON ADMISSION IN ER. CT HEAD IN ER AND CT HEAD WITH CONTRAST AND ABD PELVIS CT TO RO METASTATIC LESION R/T LUNG CA. MRI HEAD ON WEDNESDAY. CTA CAROTIDS. STRICT I & OS (2) Hypertension Status: Chronic (3) Hyperlipidemia Status: Chronic (4) GERD (gastroesophageal reflux disease) Status: Chronic (5) Pulmonary embolism Status: Acute Qualifiers: (6) Lung malignancy Status: Acute Qualifiers: Laterality: unspecified laterality Lung location: unspecified part of lung Qualified Code(s): C34.90 - Malignant neoplasm of unspecified part of unspecified bronchus or lung
--- NOTE | 2018-08-29 13:28 | MRI ---
MRA HEAD WITHOUT CONTRAST CLINICAL HISTORY: 73-year-old female with headache and dizziness. History of leukemia and COPD. COMPARISONS: CT head 08/27/2018. TECHNIQUE: 3-D time of flight magnetic resonance angiographic images of the [place] were obtained and presented as maximum intensity projection images in rotating format. FINDINGS: Left dominant vertebral artery. Bilateral PICA are present. The basilar artery is normal in appearance and gives off normal bilateral superior cerebellar and posterior cerebral arteries. The internal carotid arteries are normal from the distal cervical segments to the carotid terminus. Posterior communicating arteries are not visualized. The middle and anterior cerebral arteries are normal in course and caliber. There is a small caliber anterior communicating artery. IMPRESSION: No aneurysm, high-grade stenosis, complete occlusion, dissection or vascular malformation. Reported By:
--- NOTE | 2018-08-29 13:37 | MRI ---
MRI BRAIN WITHOUT AND WITH CONTRAST CLINICAL HISTORY: 73-year-old female with headache and dizziness and left frontal lobe infarction. COMPARISON: CT head 08/27/2018. TECHNIQUE: Multiplanar, multisequence MR images of the brain were obtained prior to and following the uneventful intravenous administration of 60 mL MultiHance. FINDINGS: Study is limited secondary to patient motion. Large region of diffusion restriction within the left MCA distribution involving the middle and inferior left frontal gyri with associated signal loss on ADC map and T2 FLAIR hyperintensity without evidence of hemorrhagic transformation. The craniocervical junction is normal. Pituitary and optic nerve complex are normal. Multifocal punctate T2 FLAIR signal hyperintensities are present within the subcortical, juxtacortical, periventricular and supraventricular white matter that are nonspecific in appearance but most likely to represent microvascular white matter ischemic changes. Normal signal characteristics and morphology are demonstrated within the corpus callosum, deep [place] nuclei, brainstem and cerebellum. The major vascular flow voids, to include the dural venous sinuses, are intact. No abnormal susceptibility on gradient imaging. Age advanced cortical volume loss is present, with commensurate sulcal and ventricular prominence. The basilar cisterns are normal. There is no evidence of abnormal intracranial enhancement. Bilateral aphakia. The orbits and globes are otherwise within normal limits. The paranasal sinuses, tympanic cavities and mastoids are clear. IMPRESSION: 1. Acute ischemic insult involving the left MCA distribution as described above without evidence of hemorrhagic transformation. 2. Chronic, moderate microvascular white matter ischemic disease with associated volume loss. 3. No abnormal intracranial enhancement. Reported By:
--- NOTE | 2018-08-29 15:45 | CT ---
CT OF THE ABDOMEN AND PELVIS WITH CONTRAST HISTORY: Abdominal pain. Rule out Mets. Comparison: 08/01/2018, 05/06/2014 Technique: Multiple axial images of the abdomen and pelvis were obtained from the lung bases to the pubic symphysis follow the administration of IV contrast as well as oral contrast. Dose reduction techniques including Automated Exposure Control (AEC) and adjustment of mA and kV were utlized. Findings: Cardiomegaly. There is no pericardial effusion. Consolidation of the right lung base with adjacent effusion. Diffuse septal thickening is present. Liver and spleen are normal in size, enhancement characteristics and contour. No focal lesions. The portal vein is patent. No ductal dilitation. Gallbladder absent. The pancreas is unremarkable. Adrenal glands are normal. Tiny nonobstructing right renal stone. No evidence of hydronephrosis. 1.5 cm indeterminate lesion arising from the upper pole the right kidney on series 4, image 15. This is decreased in size since 2014. No bowel obstruction or inflammation. No abnormal appearing mesenteric or retroperitoneal lymph nodes. No free fluid or fluid collections. The bladder is normal in appearance. Uterus not well seen. No free fluid or abnormal pelvic lymph nodes. No aggressive osseous lesions. IMPRESSION: 1. Findings concerning for right lower lobe pneumonia. 2. Indeterminate lesion arising the upper pole the right kidney that appears to have decreased in size from prior a ruptured simple cyst. Reported By:
[2018-08-29] MEDS: NEURONTIN CAP 300 MG PO SCH (20:32)
[2018-08-29] MEDS: LIPITOR TAB 40 MG PO SCH (20:32)
--- NOTE | 2018-08-29 21:16 | PCM.PROG ---
Progress Note - Progress Note for Day of Date of Exam: 08/29/18 - Subjective Subjective: WAS ADMITTED DUE TO AN ACUTE/SUBACUTE INFARC INVOLVING THE LEFT FRONTAL LOBE. TODAY, SHE IS SITTING UP IN BED ON MORNING ROUNDS. SHE REPORTS WEAKNESS AND SHORTNESS OF BREATH THIS MORNING. FAMILY REPORTS THAT SHE CONTINUES TO BE CONFUSED AT TIMES AND IS NOT SPEAKING MUCH. HER VITALS THIS MORNING ARE 98.6-75-27-96%-117/57. LABS WERE OBTAINED. ABNORMAL LAB VALUES INCLUDE THE FOLLOWING: RBC 3.45, HGB 9.5, HCT 29.7, CHLORIDE 109, TOTAL PROTEIN 5.9, ALBUMIN 2.9. BLOOD, SPUTUM, AND URINE CULTURES ARE PENDING. SHE IS CURRENTLY ON ASPIRIN, ELIQUIS, AND LIPITOR. TODAY, WE WILL OBTAIN A BRAIN MRI/MRA WITH CONTRAST WELL AN ABDOMEN AND PELVIS CT WITH CONTRAST TO RULE OUT METASTATIC DISEASE. OTHERWISE, WE WILL FOLLOW UP WITH AM LABS AND CONTINUE TO MONITOR. - Past Medical Family Social History Past Med/Fam/Surg Hx: No changes since H&P Allergies: Allergies codeine Allergy (Verified 08/26/18 15:14) - Review of Systems ROS: No change since H&P - Vital Signs and I&O's Vital Signs: Temperature 99.2 F Pulse Rate [Left Brachial] 92 Pulse Rate 78 Respiratory Rate 28 Blood Pressure [Right Arm] 134/65 Blood Pressure [Left Arm] 143/76 Blood Pressure 147/66 O2 Sat by Pulse Oximetry 95 Intake and Output: Intake & Output 08/27/18 08/28/18 08/29/18 08/30/18 11:59 11:59 11:59 11:59 Intake Total 260 / 260 830 / 830 2760 / 2760 960 / 960 Output Total 0 / 0 1974 1350 / 1350 Balance 260 / 260 830 / 830 785 / 785 -390 / -390 - Physical Exam Oriented: Person Eyes: Normal Ear: Normal Throat: Normal Respiratory: Diminished, Wheezes Cardiovascular: Normal. negative: Edema : Normal Auscultation: Bowel Sounds: Normal Palpation: Normal Tenderness: Normal Skin: Decreased Turgur Musculoskeletal: Normal Psychiatric: Anxiety Mood Description: Calm Affect: Anxious Speech Pattern: Clear, Appropriate - Laboratory and Diagnostics Result Diagrams: 08/29/18 04:11 08/29/18 04:11 Labs: 08/28/18 09:37 Urine,Clean Catch Urine Culture - Preliminary 08/26/18 21:30 Sputum - Expectorated Sputum Sputum Culture - Final 08/26/18 21:30 Sputum - Expectorated Sputum - Final 08/26/18 18:23 Blood Blood Culture - Preliminary 08/26/18 18:17 Blood Blood Culture - Preliminary Laboratory WBC 7.4 X10^3/uL (3.6-10.0) 08/29/18 04:11 RBC 3.45 X10^6/uL (3.5-5.4) L 08/29/18 04:11 Hgb 9.5 g/dL (12.0-16.0) L 08/29/18 04:11 Hct 29.7 % (36.0-47.0) L 08/29/18 04:11 MCV 86.2 fL (80.0-100.0) 08/29/18 04:11 MCH 27.6 pg (27.0-34.0) 08/29/18 04:11 MCHC 32.1 g/dL (33.0-35.0) L 08/29/18 04:11 RDW 19.8 % (11.6-16.5) H 08/29/18 04:11 Plt Count 178 X10^3/uL (150.0-450.0) 08/29/18 04:11 MPV 8.6 fL (7.4-11.0) 08/29/18 04:11 Neut % (Auto) 72.8 % (42.0-75.0) 08/29/18 04:11 Lymph % (Auto) 13.9 % (21.0-51.0) L 08/29/18 04:11 [place] % (Auto) 9.5 % (0.0-13.0) 08/29/18 04:11 Eos % (Auto) 1.2 % (0.9-2.9) 08/29/18 04:11 Baso % (Auto) 2.6 % (0.2-1.0) H 08/29/18 04:11 Neut # (Auto) 5.4 x10^3/uL (2.2-4.8) H 08/29/18 04:11 Lymph # (Auto) 1.0 X10^3/uL (1.3-2.9) L 08/29/18 04:11 [place] # (Auto) 0.7 x10^3/uL (0.3-0.8) 08/29/18 04:11 Eos # (Auto) 0.1 x10^3/uL (0.0-0.2) 08/29/18 04:11 Baso # (Auto) 0.2 X10^3/uL (0.0-0.1) H 08/29/18 04:11 Absolute Nucleated RBC 0.1 /100WBC 08/29/18 04:11 INR Target Range - 08/27/18 12:11 INR 1.06 (0.8-1.3) 08/27/18 12:11 APTT 25.5 SECONDS (22.9-36.5) 08/27/18 12:11 PTT Comment - 08/27/18 12:11 Sample Site Lr 08/26/18 16:43 ABG pH 7.490 (7.35-7.45) H 08/26/18 16:43 ABG pCO2 37.0 mmHg (35.0-45.0) 08/26/18 16:43 ABG pO2 54.0 mmHg (80.0-100.0) L 08/26/18 16:43 ABG HCO3 28.2 mmol/L (22-26) H 08/26/18 16:43 ABG O2 Saturation 90.0 % (90-100) 08/26/18 16:43 ABG Base Excess 4.7 mmol/L (-2.0-2.0) H 08/26/18 16:43 Abhinav Test Pos 08/26/18 16:43 A-a Gradient 49.0 mmHg 08/26/18 16:43 FiO2 21.0 08/26/18 16:43 Blood Gas Comments Tiffanie well gmb 08/26/18 16:43 Sodium 144 mmol/L (136-145) 08/29/18 04:11 Corrected Sodium TNP 08/29/18 04:11 Potassium 3.8 mmol/L (3.5-5.1) 08/29/18 04:11 Chloride 109 mmol/L (98-107) H 08/29/18 04:11 Carbon Dioxide 24.9 mmol/L (21-32) 08/29/18 04:11 BUN 14 mg/dL (7-18) 08/29/18 04:11 Creatinine 0.72 mg/dL (0.55-1.02) 08/29/18 04:11 Est GFR (MDRD) Af Amer > 60 (>60) 08/29/18 04:11 Est GFR (MDRD) Non-Af > 60 (>60) 08/29/18 04:11 Glucose 92 mg/dL (65-99) 08/29/18 04:11 POC Glucose (mg/dL) 91 mg/dL (65-99) 08/29/18 20:02 Lactic Acid 1.2 mmol/L (0.4-2.0) 08/26/18 18:23 Calcium 9.1 mg/dL (8.5-10.1) 08/29/18 04:11 Corrected Calcium 10.0 mg/dL (8.5-10.1) 08/29/18 04:11 Magnesium 1.9 mg/dL (1.7-2.9) 08/28/18 04:03 Total Bilirubin 0.30 mg/dL (0.2-1.0) 08/29/18 04:11 AST 21 Units/L (15-37) 08/29/18 04:11 ALT 17 Units/L (12-78) 08/29/18 04:11 Alkaline Phosphatase 75 Units/L (46-116) 08/29/18 04:11 Ammonia 14 umol/L (11-32) 08/26/18 16:41 Total Protein 5.9 g/dL (6.4-8.2) L 08/29/18 04:11 Albumin 2.9 g/dL (3.4-5.0) L 08/29/18 04:11 Globulin 3.0 g/dL (2.5-4.5) 08/29/18 04:11 Albumin/Globulin Ratio 1.0 Ratio (1.1-2.1) L 08/29/18 04:11 Specimen Type Catherized urine 08/28/18 09:37 Urine Color Yellow (YELLOW) 08/28/18 09:37 Urine Appearance Clear (CLEAR) 08/28/18 09:37 Urine pH 6.5 (5.0 - 8.0) 03/24/19 09:37 Ur Specific [place] 1.015 (1.000-1.030) 08/28/18 09:37 Urine Protein 1+ (NEGATIVE) 08/28/18 09:37 Urine Glucose (UA) Negative (NEGATIVE) 08/28/18 09:37 Urine Ketones Negative (NEGATIVE) 08/28/18 09:37 Urine Occult Blood Negative (NEGATIVE) 08/28/18 09:37 Urine Nitrite Negative (NEGATIVE) 08/28/18 09:37 Urine Bilirubin Negative (NEGATIVE) 08/28/18 09:37 Urine Urobilinogen Normal (NORMAL) 08/28/18 09:37 Ur Leukocyte Esterase Negative (NEGATIVE) 08/28/18 09:37 Urine RBC None seen /HPF (NONE SEEN) 08/28/18 09:37 Urine WBC None seen /HPF (NONE SEEN) 08/28/18 09:37 Ur Squamous Epith Cells Rare /HPF (NEGATIVE) 08/28/18 09:37 Urine Bacteria Negative /HPF (NEGATIVE) 08/28/18 09:37 Ur Culture Indicated? Yes/culture set up 08/28/18 09:37 - Plan (1) Focal infarction of brain Status: Acute Plan: ACUTE CVA, NEURO CHECKS, PT/OT EVALUATION. BP LIPID CONTROL, STATIN THERAPY ASPIRIN, RESUMED ELIQUIS. SUPPLEMENTAL O2, BRAIN MRI/MRA, CONTINUE TO MONITOR
[2018-08-29] MEDS: LEVAQUIN PREMIX IV 500 MG 500 MG/100 ML BAG IV SCH (21:46)
[2018-08-29] MEDS: FORTAZ or TAZICEF VIAL INJ IVP SCH (21:46)
[2018-08-30 05:34] LABS: BASOPHILS # (AUTO) 0.2 X10^3/uL (0.0-0.1); BASOPHILS % (AUTO) 2.7 % (0.2-1.0); EOSINOPHILS # (AUTO) 0.1 x10^3/uL (0.0-0.2); EOSINOPHILS % (AUTO) 1.6 % (0.9-2.9); HEMATOCRIT 30.7 % (36.0-47.0); LYMPHOCYTES # (AUTO) 0.8 X10^3/uL (1.3-2.9); LYMPHOCYTES % (AUTO) 10.8 % (21.0-51.0); MEAN CORPUSCULAR HEMOGLOBIN 27.8 pg (27.0-34.0); MEAN CORPUSCULAR HGB CONC 32.6 g/dL (33.0-35.0); MEAN CORPUSCULAR VOLUME 85.4 fL (80.0-100.0); MEAN PLATELET VOLUME 8.9 fL (7.4-11.0); MONOCYTES # (AUTO) 0.8 x10^3/uL (0.3-0.8); MONOCYTES % (AUTO) 9.8 % (0.0-13.0); NEUTROPHILS # (AUTO) 5.9 x10^3/uL (2.2-4.8); NEUTROPHILS % (AUTO) 75.1 % (42.0-75.0); PLATELET COUNT 197 X10^3/uL (150.0-450.0); RED BLOOD COUNT 3.59 X10^6/uL (3.5-5.4); RED CELL DISTRIBUTION WIDTH 19.4 % (11.6-16.5); WHITE BLOOD COUNT 7.9 X10^3/uL (3.6-10.0)
[2018-08-30] MEDS: NS 1000 ML 1,000 ML IV SCH ×2 (05:44→20:36)
[2018-08-30] MEDS: FORTAZ or TAZICEF VIAL INJ IVP SCH ×3 (05:45→22:06)
[2018-08-30 05:46] LABS: ALANINE AMINOTRANSFERASE 16 Units/L (12-78); ALBUMIN 2.9 g/dL (3.4-5.0); ALKALINE PHOSPHATASE 84 Units/L (46-116); ASPARTATE AMINO TRANSFERASE 21 Units/L (15-37); BLOOD UREA NITROGEN 12 mg/dL (7-18); CALCIUM 9.5 mg/dL (8.5-10.1); CARBON DIOXIDE 25.2 mmol/L (21-32); CHLORIDE 109 mmol/L (98-107); COR CA(FOR HYPOALB) 10.4 mg/dL (8.5-10.1); CREATININE 0.71 mg/dL (0.55-1.02); SODIUM 144 mmol/L (136-145); TOTAL PROTEIN 6.2 g/dL (6.4-8.2); eGFR NON BLACK RACES > 60 (>60)
[2018-08-30 06:47] LABS: PLATELET MORPHOLOGY COMMENT NORMAL (NORMAL)
--- NOTE | 2018-08-30 08:43 | RAD ---
HISTORY: Follow-up pneumonia Study: Chest AP portable Comparison: 08/27/2018 Findings: The heart is enlarged. No congestive heart failure is noted. The aorta is calcified. Right lower lobe infiltrate is unchanged when compared with the prior examination. The remainder of the lung [place] are clear. No pleural effusions are identified. The bony thorax is unremarkable. IMPRESSION: No change right lower lobe pneumonia Continued mild cardiomegaly without congestive heart failure Reported By:
[2018-08-30] MEDS: DUONEB 0.5 MG/3 MG NEB SCH ×4 (09:10→20:10)
[2018-08-30] MEDS ORDERED: LEXAPRO ONE (09:40)
[2018-08-30] MEDS: ELIQUIS PO SCH ×2 (09:42→20:35)
[2018-08-30] MEDS: SINGULAIR TAB 10 MG PO SCH (09:42)
[2018-08-30] MEDS: ECOTRIN TAB 325 MG PO SCH (09:42)
[2018-08-30] MEDS: LEXAPRO PO SCH (09:42)
[2018-08-30] MEDS: SYNTHROID 50 mcg TAB PO SCH (09:42)
[2018-08-30] MEDS: TOPROL XL PO SCH (09:42)
--- NOTE | 2018-08-30 20:16 | PCM.PROG ---
Progress Note - Progress Note for Day of Date of Exam: 08/30/18 - Subjective Subjective: WAS ADMITTED DUE TO AN ACUTE/SUBACUTE INFARCT INVOLVING THE LEFT FRONTAL LOBE. TODAY, SHE IS SITTING UP IN BED ON MORNING ROUNDS. SHE REPORTS WEAKNESS AND SHORTNESS OF BREATH THIS MORNING. FAMILY REPORTS THAT SHE CONTINUES TO BE CONFUSED AT TIMES AND IS NOT SPEAKING MUCH. HER VITALS THIS MORNING ARE 98.4-74-22-88%RA-121/56. LABS WERE OBTAINED. ABNORMAL LAB VALUES INCLUDE THE FOLLOWING: HGB 10.0, HCT 30.7, CHLORIDE 109, TOTAL PROTEIN 6.2, ALBUMIN 2.9. BLOOD, SPUTUM, AND URINE CULTURES ARE PENDING. AN ABDOMEN/PELVIS CT WITH CONTRAST WAS OBTAINED YESTERDAY TO RULE OUT METASTATIC DISEASE. IT REVEALED: Findings concerning for right lower lobe pneumonia. Indeterminate lesion arising the upper pole the right kidney that appears to have decreased in size from prior a ruptured simple cyst. BRAIN MRI REVEALED: Acute ischemic insult involving the left MCA distribution as described above without evidence of hemorrhagic transformation. Chronic, moderate microvascular white matter ischemic disease with associated volume loss. No abnormal intracranial enhancement. SHE WAS STARTED ON LEVAQUIN AND FORTAZ LAST NIGHT. SHE IS CURRENTLY ON ASPIRIN, ELIQUIS, AND LIPITOR. PHYSICAL THERAPY WILL CONTINUE TO WORK WITH PATIENT TODAY. OTHERWISE, WE WILL FOLLOW UP WITH AM LABS AND CONTINUE TO MONITOR. - Past Medical Family Social History Past Med/Fam/Surg Hx: No changes since H&P Allergies: Allergies codeine Allergy (Verified 08/26/18 15:14) - Review of Systems ROS: No change since H&P - Vital Signs and I&O's Vital Signs: Temperature 98.8 F Pulse Rate [Left Brachial] 92 Pulse Rate 68 Respiratory Rate 25 Blood Pressure [Right Arm] 134/65 Blood Pressure [Left Arm] 143/76 Blood Pressure 192/87 O2 Sat by Pulse Oximetry 94 Intake and Output: Intake & Output 08/28/18 08/29/18 08/30/18 08/31/18 11:59 11:59 11:59 11:59 Intake Total 830 / 830 2760 / 2760 2024 1275 / 1275 Output Total 1974 / 1974 3526 / 3526 1200 / 1200 Balance 830 / 830 785 / 785 -1501 / -1501 75 / 75 - Physical Exam Oriented: Person Eyes: Normal Ear: Normal Throat: Normal Respiratory: Diminished, Wheezes Cardiovascular: Normal. negative: Edema : Normal Auscultation: Bowel Sounds: Normal Palpation: Normal Tenderness: Normal Skin: Decreased Turgur Musculoskeletal: Normal Psychiatric: Anxiety Mood Description: Calm Affect: Anxious Speech Pattern: Clear, Appropriate - Laboratory and Diagnostics Result Diagrams: 08/30/18 04:04 08/30/18 04:04 Labs: 08/28/18 09:37 Urine,Clean Catch Urine Culture - Final 08/26/18 21:30 Sputum - Expectorated Sputum Sputum Culture - Final 08/26/18 21:30 Sputum - Expectorated Sputum - Final 08/26/18 18:23 Blood Blood Culture - Preliminary 08/26/18 18:17 Blood Blood Culture - Preliminary Laboratory WBC 7.9 X10^3/uL (3.6-10.0) 08/30/18 04:04 RBC 3.59 X10^6/uL (3.5-5.4) 08/30/18 04:04 Hgb 10.0 g/dL (12.0-16.0) L 08/30/18 04:04 Hct 30.7 % (36.0-47.0) L 08/30/18 04:04 MCV 85.4 fL (80.0-100.0) 08/30/18 04:04 MCH 27.8 pg (27.0-34.0) 08/30/18 04:04 MCHC 32.6 g/dL (33.0-35.0) L 08/30/18 04:04 RDW 19.4 % (11.6-16.5) H 08/30/18 04:04 Plt Count 197 X10^3/uL (150.0-450.0) 08/30/18 04:04 Plt Count Comment Adequate (ADEQUATE) 08/30/18 04:04 MPV 8.9 fL (7.4-11.0) 08/30/18 04:04 Neut % (Auto) 75.1 % (42.0-75.0) H 08/30/18 04:04 Lymph % (Auto) 10.8 % (21.0-51.0) L 08/30/18 04:04 [place] % (Auto) 9.8 % (0.0-13.0) 08/30/18 04:04 Eos % (Auto) 1.6 % (0.9-2.9) 08/30/18 04:04 Baso % (Auto) 2.7 % (0.2-1.0) H 08/30/18 04:04 Neut # (Auto) 5.9 x10^3/uL (2.2-4.8) H 08/30/18 04:04 Lymph # (Auto) 0.8 X10^3/uL (1.3-2.9) L 08/30/18 04:04 [place] # (Auto) 0.8 x10^3/uL (0.3-0.8) 08/30/18 04:04 Eos # (Auto) 0.1 x10^3/uL (0.0-0.2) 08/30/18 04:04 Baso # (Auto) 0.2 X10^3/uL (0.0-0.1) H 08/30/18 04:04 Absolute Nucleated RBC 0.1 /100WBC 08/30/18 04:04 Total Counted 100 08/30/18 04:04 Neutrophils % (Manual) 76 % (39-76) 08/30/18 04:04 Lymphocytes % (Manual) 14 % (13-43) 08/30/18 04:04 Monocytes % (Manual) 9 % (4-9) 08/30/18 04:04 Eosinophils % (Manual) 1 % (0-6) 08/30/18 04:04 Plt Morphology Comment Normal (NORMAL) 08/30/18 04:04 RBC Morphology Normal (NORMAL) 08/30/18 04:04 INR Target Range - 08/27/18 12:11 INR 1.06 (0.8-1.3) 08/27/18 12:11 APTT 25.5 SECONDS (22.9-36.5) 08/27/18 12:11 PTT Comment - 08/27/18 12:11 Sample Site Lr 08/26/18 16:43 ABG pH 7.490 (7.35-7.45) H 08/26/18 16:43 ABG pCO2 37.0 mmHg (35.0-45.0) 08/26/18 16:43 ABG pO2 54.0 mmHg (80.0-100.0) L 08/26/18 16:43 ABG HCO3 28.2 mmol/L (22-26) H 08/26/18 16:43 ABG O2 Saturation 90.0 % (90-100) 08/26/18 16:43 ABG Base Excess 4.7 mmol/L (-2.0-2.0) H 08/26/18 16:43 Abhinav Test Pos 08/26/18 16:43 A-a Gradient 49.0 mmHg 08/26/18 16:43 FiO2 21.0 08/26/18 16:43 Blood Gas Comments Tiffanie well gmb 08/26/18 16:43 Sodium 144 mmol/L (136-145) 08/30/18 04:04 Corrected Sodium TNP 08/30/18 04:04 Potassium 3.7 mmol/L (3.5-5.1) 08/30/18 04:04 Chloride 109 mmol/L (98-107) H 08/30/18 04:04 Carbon Dioxide 25.2 mmol/L (21-32) 08/30/18 04:04 BUN 12 mg/dL (7-18) 08/30/18 04:04 Creatinine 0.71 mg/dL (0.55-1.02) 08/30/18 04:04 Est GFR (MDRD) Af Amer > 60 (>60) 08/30/18 04:04 Est GFR (MDRD) Non-Af > 60 (>60) 08/30/18 04:04 Glucose 84 mg/dL (65-99) 08/30/18 04:04 POC Glucose (mg/dL) 111 mg/dL (65-99) H 08/30/18 17:03 Lactic Acid 1.2 mmol/L (0.4-2.0) 08/26/18 18:23 Calcium 9.5 mg/dL (8.5-10.1) 08/30/18 04:04 Corrected Calcium 10.4 mg/dL (8.5-10.1) H 08/30/18 04:04 Magnesium 1.9 mg/dL (1.7-2.9) 08/28/18 04:03 Total Bilirubin 0.30 mg/dL (0.2-1.0) 08/30/18 04:04 AST 21 Units/L (15-37) 08/30/18 04:04 ALT 16 Units/L (12-78) 08/30/18 04:04 Alkaline Phosphatase 84 Units/L (46-116) 08/30/18 04:04 Ammonia 14 umol/L (11-32) 08/26/18 16:41 Total Protein 6.2 g/dL (6.4-8.2) L 08/30/18 04:04 Albumin 2.9 g/dL (3.4-5.0) L 08/30/18 04:04 Globulin 3.3 g/dL (2.5-4.5) 08/30/18 04:04 Albumin/Globulin Ratio 0.9 Ratio (1.1-2.1) L 08/30/18 04:04 Specimen Type Catherized urine 08/28/18 09:37 Urine Color Yellow (YELLOW) 08/28/18 09:37 Urine Appearance Clear (CLEAR) 08/28/18 09:37 Urine pH 6.5 (5.0 - 8.0) 08/28/18 09:37 Ur Specific [place] 1.015 (1.000-1.030) 08/28/18 09:37 Urine Protein 1+ (NEGATIVE) 08/28/18 09:37 Urine Glucose (UA) Negative (NEGATIVE) 08/28/18 09:37 Urine Ketones Negative (NEGATIVE) 08/28/18 09:37 Urine Occult Blood Negative (NEGATIVE) 08/28/18 09:37 Urine Nitrite Negative (NEGATIVE) 08/28/18 09:37 Urine Bilirubin Negative (NEGATIVE) 08/28/18 09:37 Urine Urobilinogen Normal (NORMAL) 08/28/18 09:37 Ur Leukocyte Esterase Negative (NEGATIVE) 08/28/18 09:37 Urine RBC None seen /HPF (NONE SEEN) 08/28/18 09:37 Urine WBC None seen /HPF (NONE SEEN) 08/28/18 09:37 Ur Squamous Epith Cells Rare /HPF (NEGATIVE) 08/28/18 09:37 Urine Bacteria Negative /HPF (NEGATIVE) 08/28/18 09:37 Ur Culture Indicated? Yes/culture set up 08/28/18 09:37 - Plan (1) Focal infarction of brain Status: Acute Plan: ACUTE CVA, NEURO CHECKS, PT/OT EVALUATION. BP LIPID CONTROL, STATIN THERAPY ASPIRIN, RESUMED ELIQUIS. SUPPLEMENTAL O2, BRAIN MRI/MRA, CONTINUE TO MONITOR (2) Pneumonia Status: Acute Qualifiers: Pneumonia type: due to unspecified organism Laterality: right Lung location: lower lobe of lung Qualified Code(s): J18.1 - Lobar pneumonia, unspecified organism Plan: IV FORTAZ, IV LEVAQUIN, RESPIRATORY [place], SUPPLEMENTAL OXYGEN, CONTINUE TO MONITOR
[2018-08-30] MEDS: NEURONTIN CAP 300 MG PO SCH (20:34)
[2018-08-30] MEDS: LIPITOR TAB 40 MG PO SCH (20:35)
[2018-08-30] MEDS: LEVAQUIN PREMIX IV 500 MG 500 MG/100 ML BAG IV SCH (20:36)
[2018-08-31 05:29] LABS: BASOPHILS # (AUTO) 0.2 X10^3/uL (0.0-0.1); BASOPHILS % (AUTO) 2.5 % (0.2-1.0); EOSINOPHILS # (AUTO) 0.1 x10^3/uL (0.0-0.2); EOSINOPHILS % (AUTO) 1.9 % (0.9-2.9); HEMATOCRIT 32.2 % (36.0-47.0); HEMOGLOBIN 10.4 g/dL (12.0-16.0); LYMPHOCYTES % (AUTO) 14.5 % (21.0-51.0); MEAN CORPUSCULAR HEMOGLOBIN 27.6 pg (27.0-34.0); MEAN CORPUSCULAR HGB CONC 32.2 g/dL (33.0-35.0); MEAN CORPUSCULAR VOLUME 85.8 fL (80.0-100.0); MONOCYTES # (AUTO) 0.6 x10^3/uL (0.3-0.8); MONOCYTES % (AUTO) 8.5 % (0.0-13.0); NEUTROPHILS # (AUTO) 4.9 x10^3/uL (2.2-4.8); NEUTROPHILS % (AUTO) 72.6 % (42.0-75.0); PLATELET COUNT 199 X10^3/uL (150.0-450.0); RED BLOOD COUNT 3.75 X10^6/uL (3.5-5.4); RED CELL DISTRIBUTION WIDTH 20.1 % (11.6-16.5); WHITE BLOOD COUNT 6.7 X10^3/uL (3.6-10.0)
[2018-08-31] MEDS: FORTAZ or TAZICEF VIAL INJ IVP SCH ×3 (05:29→21:56)
[2018-08-31 05:47] LABS: ALANINE AMINOTRANSFERASE 19 Units/L (12-78); ALBUMIN 3.1 g/dL (3.4-5.0); ALKALINE PHOSPHATASE 82 Units/L (46-116); ASPARTATE AMINO TRANSFERASE 24 Units/L (15-37); BLOOD UREA NITROGEN 11 mg/dL (7-18); CALCIUM 9.5 mg/dL (8.5-10.1); CARBON DIOXIDE 25.8 mmol/L (21-32); CHLORIDE 110 mmol/L (98-107); COR CA(FOR HYPOALB) 10.2 mg/dL (8.5-10.1); CREATININE 0.61 mg/dL (0.55-1.02); SODIUM 145 mmol/L (136-145); TOTAL PROTEIN 6.4 g/dL (6.4-8.2); eGFR NON BLACK RACES > 60 (>60)
[2018-08-31 06:08] LABS: BASOPHILS % (MANUAL) 3 % (0-1); PLATELET MORPHOLOGY COMMENT NORMAL (NORMAL)
--- NOTE | 2018-08-31 07:19 | RAD ---
HISTORY: Follow-up pneumonia Study: Chest AP portable Comparison: 08/30/2018 Findings: The heart remains enlarged. No definite congestive heart failure is noted. The aorta is calcified. Right lower lobe infiltrate is unchanged. The left lung is clear. No definite pleural effusions are identified. The bony thorax is unremarkable. IMPRESSION: Continued cardiomegaly without congestive heart failure No change right lower lobe infiltrate Reported By:
[2018-08-31] MEDS ORDERED: LEXAPRO ONE (07:57)
[2018-08-31] MEDS: DUONEB 0.5 MG/3 MG NEB SCH ×4 (08:21→20:49)
[2018-08-31] MEDS: SINGULAIR TAB 10 MG PO SCH (08:41)
[2018-08-31] MEDS: LEXAPRO PO SCH (08:41)
[2018-08-31] MEDS: SYNTHROID 50 mcg TAB PO SCH (08:41)
[2018-08-31] MEDS: ELIQUIS PO SCH ×2 (08:42→20:32)
[2018-08-31] MEDS: TOPROL XL PO SCH (08:42)
[2018-08-31] MEDS: ECOTRIN TAB 325 MG PO SCH (08:43)
[2018-08-31] MEDS: NS 1000 ML 1,000 ML IV SCH (12:51)
--- NOTE | 2018-08-31 13:28 | PCM.PROG ---
Progress Note - Progress Note for Day of Date of Exam: 08/31/18 - Subjective Subjective: WAS ADMITTED DUE TO AN ACUTE/SUBACUTE INFARCT INVOLVING THE LEFT FRONTAL LOBE. SHE IS ALSO BEING TREATED FOR RIGHT LOWER LOBE PNEUMONIA. TODAY, SHE IS ALERT, LYING IN BED ON MORNING ROUNDS. SHE REPORTS WEAKNESS, COUGH, AND SHORTNESS OF BREATH THIS MORNING. FAMILY REPORTS THAT SHE CONTINUES TO BE CONFUSED AT TIMES AND IS NOT SPEAKING MUCH. HER VITALS THIS MORNING ARE 99.5-78-20-99%-127/60. LABS WERE OBTAINED. ABNORMAL LAB VALUES INCLUDE THE FOLLOWING: HGB 10.4, HCT 32.2, CHLORIDE 110, ALBUMIN 3.1. BLOOD, SPUTUM, AND URINE CULTURES ARE PENDING. SHE WAS STARTED ON LEVAQUIN AND FORTAZ LAST NIGHT. SHE IS CURRENTLY ON ASPIRIN, ELIQUIS, LIPITOR, IV ANTIBIOTICS, AND RESPIRATORY T REATMENTS. PHYSICAL THERAPY WILL CONTINUE TO WORK WITH PATIENT TODAY. FAMILY REQUEST THAT PATIENT BE CONSIDERED FOR PHYSICAL THERAPY AND REHAB TO BUILD STRENGTH PRIOR TO RETURNING HOME. WE WILL DISCUSS THIS WITH CASE MANAGEMENT TODAY. OTHERWISE, WE WILL FOLLOW UP WITH AM LABS AND CONTINUE TO MONITOR. - Past Medical Family Social History Past Med/Fam/Surg Hx: No changes since H&P Allergies: Allergies codeine Allergy (Verified 08/26/18 15:14) - Review of Systems ROS: No change since H&P - Vital Signs and I&O's Vital Signs: Temperature 97.5 F Pulse Rate [Left Brachial] 92 Pulse Rate 67 Respiratory Rate 27 Blood Pressure [Right Arm] 134/65 Blood Pressure [Left Arm] 143/76 Blood Pressure 135/60 O2 Sat by Pulse Oximetry 96 Intake and Output: Intake & Output 08/29/18 08/30/18 08/31/18 09/01/18 11:59 11:59 11:59 11:59 Intake Total 2760 / 2760 2024 / 2024 2405 / 2405 Output Total 1974 3526 / 3526 3450 / 3450 Balance 785 / 785 -1501 / -1501 -1045 / -1045 - Physical Exam Oriented: Person Eyes: Normal Ear: Normal Throat: Normal Respiratory: Diminished, Wheezes Cardiovascular: Normal. negative: Edema : Normal Auscultation: Bowel Sounds: Normal Palpation: Normal Tenderness: Normal Skin: Decreased Turgur Musculoskeletal: Normal Psychiatric: Anxiety Mood Description: Calm Affect: Anxious Speech Pattern: Clear, Appropriate - Laboratory and Diagnostics Result Diagrams: 08/31/18 04:02 08/31/18 04:02 Labs: 08/28/18 09:37 Urine,Clean Catch Urine Culture - Final 08/26/18 21:30 Sputum - Expectorated Sputum Sputum Culture - Final 08/26/18 21:30 Sputum - Expectorated Sputum - Final 08/26/18 18:23 Blood Blood Culture - Preliminary 08/26/18 18:17 Blood Blood Culture - Preliminary Laboratory WBC 6.7 X10^3/uL (3.6-10.0) 08/31/18 04:02 RBC 3.75 X10^6/uL (3.5-5.4) 08/31/18 04:02 Hgb 10.4 g/dL (12.0-16.0) L 08/31/18 04:02 Hct 32.2 % (36.0-47.0) L 08/31/18 04:02 MCV 85.8 fL (80.0-100.0) 08/31/18 04:02 MCH 27.6 pg (27.0-34.0) 08/31/18 04:02 MCHC 32.2 g/dL (33.0-35.0) L 08/31/18 04:02 RDW 20.1 % (11.6-16.5) H 08/31/18 04:02 Plt Count 199 X10^3/uL (150.0-450.0) 08/31/18 04:02 Plt Count Comment Adequate (ADEQUATE) 08/31/18 04:02 MPV 9.0 fL (7.4-11.0) 08/31/18 04:02 Neut % (Auto) 72.6 % (42.0-75.0) 08/31/18 04:02 Lymph % (Auto) 14.5 % (21.0-51.0) L 08/31/18 04:02 [place] % (Auto) 8.5 % (0.0-13.0) 08/31/18 04:02 Eos % (Auto) 1.9 % (0.9-2.9) 08/31/18 04:02 Baso % (Auto) 2.5 % (0.2-1.0) H 08/31/18 04:02 Neut # (Auto) 4.9 x10^3/uL (2.2-4.8) H 08/31/18 04:02 Lymph # (Auto) 1.0 X10^3/uL (1.3-2.9) L 08/31/18 04:02 [place] # (Auto) 0.6 x10^3/uL (0.3-0.8) 08/31/18 04:02 Eos # (Auto) 0.1 x10^3/uL (0.0-0.2) 08/31/18 04:02 Baso # (Auto) 0.2 X10^3/uL (0.0-0.1) H 08/31/18 04:02 Absolute Nucleated RBC 0.1 /100WBC 08/31/18 04:02 Total Counted 100 08/31/18 04:02 Neutrophils % (Manual) 86 % (39-76) H 08/31/18 04:02 Lymphocytes % (Manual) 8 % (13-43) L 08/31/18 04:02 Monocytes % (Manual) 3 % (4-9) L 08/31/18 04:02 Eosinophils % (Manual) 1 % (0-6) 08/30/18 04:04 Basophils % (Manual) 3 % (0-1) H 08/31/18 04:02 Plt Morphology Comment Normal (NORMAL) 08/31/18 04:02 RBC Morphology Normal (NORMAL) 08/31/18 04:02 INR Target Range - 08/27/18 12:11 INR 1.06 (0.8-1.3) 08/27/18 12:11 APTT 25.5 SECONDS (22.9-36.5) 08/27/18 12:11 PTT Comment - 08/27/18 12:11 Sample Site Lr 08/26/18 16:43 ABG pH 7.490 (7.35-7.45) H 08/26/18 16:43 ABG pCO2 37.0 mmHg (35.0-45.0) 08/26/18 16:43 ABG pO2 54.0 mmHg (80.0-100.0) L 08/26/18 16:43 ABG HCO3 28.2 mmol/L (22-26) H 08/26/18 16:43 ABG O2 Saturation 90.0 % (90-100) 08/26/18 16:43 ABG Base Excess 4.7 mmol/L (-2.0-2.0) H 08/26/18 16:43 Abhinav Test Pos 08/26/18 16:43 A-a Gradient 49.0 mmHg 08/26/18 16:43 FiO2 21.0 08/26/18 16:43 Blood Gas Comments Tiffanie well gmb 08/26/18 16:43 Sodium 145 mmol/L (136-145) 08/31/18 04:02 Corrected Sodium TNP 08/31/18 04:02 Potassium 3.7 mmol/L (3.5-5.1) 08/31/18 04:02 Chloride 110 mmol/L (98-107) H 08/31/18 04:02 Carbon Dioxide 25.8 mmol/L (21-32) 08/31/18 04:02 BUN 11 mg/dL (7-18) 08/31/18 04:02 Creatinine 0.61 mg/dL (0.55-1.02) 08/31/18 04:02 Est GFR (MDRD) Af Amer > 60 (>60) 08/31/18 04:02 Est GFR (MDRD) Non-Af > 60 (>60) 08/31/18 04:02 Glucose 84 mg/dL (65-99) 08/31/18 04:02 POC Glucose (mg/dL) 111 mg/dL (65-99) H 08/31/18 11:18 Lactic Acid 1.2 mmol/L (0.4-2.0) 08/26/18 18:23 Calcium 9.5 mg/dL (8.5-10.1) 08/31/18 04:02 Corrected Calcium 10.2 mg/dL (8.5-10.1) H 08/31/18 04:02 Magnesium 1.9 mg/dL (1.7-2.9) 08/28/18 04:03 Total Bilirubin 0.30 mg/dL (0.2-1.0) 08/31/18 04:02 AST 24 Units/L (15-37) 08/31/18 04:02 ALT 19 Units/L (12-78) 08/31/18 04:02 Alkaline Phosphatase 82 Units/L (46-116) 08/31/18 04:02 Ammonia 14 umol/L (11-32) 08/26/18 16:41 Total Protein 6.4 g/dL (6.4-8.2) 08/31/18 04:02 Albumin 3.1 g/dL (3.4-5.0) L 08/31/18 04:02 Globulin 3.3 g/dL (2.5-4.5) 08/31/18 04:02 Albumin/Globulin Ratio 0.9 Ratio (1.1-2.1) L 08/31/18 04:02 Specimen Type Catherized urine 08/28/18 09:37 Urine Color Yellow (YELLOW) 08/28/18 09:37 Urine Appearance Clear (CLEAR) 08/28/18 09:37 Urine pH 6.5 (5.0 - 8.0) 08/28/18 09:37 Ur Specific [place] 1.015 (1.000-1.030) 08/28/18 09:37 Urine Protein 1+ (NEGATIVE) 08/28/18 09:37 Urine Glucose (UA) Negative (NEGATIVE) 08/28/18 09:37 Urine Ketones Negative (NEGATIVE) 08/28/18 09:37 Urine Occult Blood Negative (NEGATIVE) 08/28/18 09:37 Urine Nitrite Negative (NEGATIVE) 08/28/18 09:37 Urine Bilirubin Negative (NEGATIVE) 08/28/18 09:37 Urine Urobilinogen Normal (NORMAL) 08/28/18 09:37 Ur Leukocyte Esterase Negative (NEGATIVE) 08/28/18 09:37 Urine RBC None seen /HPF (NONE SEEN) 08/28/18 09:37 Urine WBC None seen /HPF (NONE SEEN) 08/28/18 09:37 Ur Squamous Epith Cells Rare /HPF (NEGATIVE) 08/28/18 09:37 Urine Bacteria Negative /HPF (NEGATIVE) 08/28/18 09:37 Ur Culture Indicated? Yes/culture set up 08/28/18 09:37 - Plan (1) Focal infarction of brain Status: Acute Plan: ACUTE CVA, NEURO CHECKS, PT/OT EVALUATION. BP LIPID CONTROL, STATIN THERAPY ASPIRIN, RESUMED ELIQUIS. SUPPLEMENTAL O2, BRAIN MRI/MRA, CONTINUE TO MONITOR (2) Pneumonia Status: Acute Qualifiers: Pneumonia type: due to unspecified organism Laterality: right Lung l ocation: lower lobe of lung Qualified Code(s): J18.1 - Lobar pneumonia, unspecified organism Plan: IV FORTAZ, IV LEVAQUIN, RESPIRATORY [place], SUPPLEMENTAL OXYGEN, CONTINUE TO MONITOR
[2018-08-31] MEDS: LEVAQUIN PREMIX IV 500 MG 500 MG/100 ML BAG IV SCH (20:31)
[2018-08-31] MEDS: NEURONTIN CAP 300 MG PO SCH (20:32)
[2018-08-31] MEDS: LIPITOR TAB 40 MG PO SCH (20:32)
[2018-09-01] MEDS: NS 1000 ML 1,000 ML IV SCH ×3 (01:50→19:59)
[2018-09-01 05:27] LABS: BASOPHILS # (AUTO) 0.2 X10^3/uL (0.0-0.1); EOSINOPHILS # (AUTO) 0.2 x10^3/uL (0.0-0.2); EOSINOPHILS % (AUTO) 2.5 % (0.9-2.9); HEMOGLOBIN 9.6 g/dL (12.0-16.0); LYMPHOCYTES # (AUTO) 0.9 X10^3/uL (1.3-2.9); MEAN CORPUSCULAR HEMOGLOBIN 27.4 pg (27.0-34.0); MEAN CORPUSCULAR HGB CONC 32.2 g/dL (33.0-35.0); MEAN CORPUSCULAR VOLUME 85.2 fL (80.0-100.0); MEAN PLATELET VOLUME 8.5 fL (7.4-11.0); MONOCYTES # (AUTO) 0.8 x10^3/uL (0.3-0.8); NEUTROPHILS # (AUTO) 5.6 x10^3/uL (2.2-4.8); NEUTROPHILS % (AUTO) 72.5 % (42.0-75.0); PLATELET COUNT 190 X10^3/uL (150.0-450.0); RED BLOOD COUNT 3.52 X10^6/uL (3.5-5.4); RED CELL DISTRIBUTION WIDTH 19.1 % (11.6-16.5); WHITE BLOOD COUNT 7.8 X10^3/uL (3.6-10.0)
[2018-09-01 05:38] LABS: ALANINE AMINOTRANSFERASE 19 Units/L (12-78); ALBUMIN 2.9 g/dL (3.4-5.0); ALKALINE PHOSPHATASE 80 Units/L (46-116); ASPARTATE AMINO TRANSFERASE 25 Units/L (15-37); BLOOD UREA NITROGEN 11 mg/dL (7-18); CALCIUM 9.4 mg/dL (8.5-10.1); CARBON DIOXIDE 25.7 mmol/L (21-32); CHLORIDE 110 mmol/L (98-107); COR CA(FOR HYPOALB) 10.3 mg/dL (8.5-10.1); CREATININE 0.63 mg/dL (0.55-1.02); SODIUM 144 mmol/L (136-145); TOTAL PROTEIN 5.9 g/dL (6.4-8.2); eGFR NON BLACK RACES > 60 (>60)
[2018-09-01] MEDS: FORTAZ or TAZICEF VIAL INJ IVP SCH ×3 (05:51→21:11)
[2018-09-01 06:21] LABS: ANISOCYTOSIS SLIGHT; HYPOCHROMASIA 1+; PLATELET MORPHOLOGY COMMENT NORMAL (NORMAL)
--- NOTE | 2018-09-01 08:41 | RAD ---
HISTORY: Right lower lobe pneumonia Study: Single view chest Comparison: 08/31/2018 Findings: There is mild central vascular congestion with slightly improved aeration of the lungs compared to most recent prior study. There is a persistent layering right pleural effusion. No pneumothorax identified. Stable cardiac and mediastinal contours and chronic degenerative changes of the bony thorax. IMPRESSION: 1. Improving aeration of the lungs with mild persistent central vascular congestion and layering right pleural effusion. Reported By:
[2018-09-01] MEDS: DUONEB 0.5 MG/3 MG NEB SCH ×4 (09:37→22:00)
[2018-09-01] MEDS ORDERED: LEXAPRO ONE ×2 (09:59→10:03)
[2018-09-01] MEDS: ECOTRIN TAB 325 MG PO SCH (10:01)
[2018-09-01] MEDS: ELIQUIS PO SCH ×2 (10:02→19:59)
[2018-09-01] MEDS: TOPROL XL PO SCH (10:02)
[2018-09-01] MEDS: SYNTHROID 50 mcg TAB PO SCH (10:02)
[2018-09-01] MEDS: SINGULAIR TAB 10 MG PO SCH (10:02)
[2018-09-01] MEDS: LEXAPRO PO SCH (10:06)
[2018-09-01] MEDS: LEVAQUIN PREMIX IV 500 MG 500 MG/100 ML BAG IV SCH (19:59)
[2018-09-01] MEDS: LIPITOR TAB 40 MG PO SCH (19:59)
[2018-09-01] MEDS: NEURONTIN CAP 300 MG PO SCH (19:59)
[2018-09-01] MEDS ORDERED: RESTORIL CAP 15 MG PO PRN (20:08)
[2018-09-01] MEDS ORDERED: TYLENOL 325 MG TAB PO PRN (20:08)
[2018-09-02] MEDS: NS 1000 ML 1,000 ML IV SCH (04:15)
[2018-09-02 05:26] LABS: BASOPHILS # (AUTO) 0.2 X10^3/uL (0.0-0.1); EOSINOPHILS # (AUTO) 0.3 x10^3/uL (0.0-0.2); EOSINOPHILS % (AUTO) 4.5 % (0.9-2.9); HEMATOCRIT 30.3 % (36.0-47.0); HEMOGLOBIN 9.9 g/dL (12.0-16.0); LYMPHOCYTES # (AUTO) 1.1 X10^3/uL (1.3-2.9); LYMPHOCYTES % (AUTO) 13.7 % (21.0-51.0); MEAN CORPUSCULAR HEMOGLOBIN 27.9 pg (27.0-34.0); MEAN CORPUSCULAR HGB CONC 32.7 g/dL (33.0-35.0); MEAN CORPUSCULAR VOLUME 85.2 fL (80.0-100.0); MEAN PLATELET VOLUME 8.8 fL (7.4-11.0); MONOCYTES # (AUTO) 0.6 x10^3/uL (0.3-0.8); MONOCYTES % (AUTO) 8.2 % (0.0-13.0); NEUTROPHILS # (AUTO) 5.4 x10^3/uL (2.2-4.8); NEUTROPHILS % (AUTO) 70.6 % (42.0-75.0); PLATELET COUNT 187 X10^3/uL (150.0-450.0); RED BLOOD COUNT 3.56 X10^6/uL (3.5-5.4); RED CELL DISTRIBUTION WIDTH 19.5 % (11.6-16.5); WHITE BLOOD COUNT 7.7 X10^3/uL (3.6-10.0)
[2018-09-02 05:35] LABS: ALANINE AMINOTRANSFERASE 20 Units/L (12-78); ALBUMIN 2.9 g/dL (3.4-5.0); ALKALINE PHOSPHATASE 78 Units/L (46-116); ASPARTATE AMINO TRANSFERASE 25 Units/L (15-37); BLOOD UREA NITROGEN 12 mg/dL (7-18); CALCIUM 9.4 mg/dL (8.5-10.1); CARBON DIOXIDE 24.8 mmol/L (21-32); CHLORIDE 109 mmol/L (98-107); COR CA(FOR HYPOALB) 10.3 mg/dL (8.5-10.1); CREATININE 0.61 mg/dL (0.55-1.02); SODIUM 146 mmol/L (136-145); eGFR NON BLACK RACES > 60 (>60)
[2018-09-02] MEDS: FORTAZ or TAZICEF VIAL INJ IVP SCH (06:10)
[2018-09-02 06:19] LABS: PLATELET MORPHOLOGY COMMENT NORMAL (NORMAL)
[2018-09-02 06:20] LABS: ANISOCYTOSIS SLIGHT; HYPOCHROMASIA SLIGHT
--- NOTE | 2018-09-02 06:58 | RAD ---
HISTORY: 73-year-old female with right lower lobe pneumonia. Study: Frontal view of the chest. Comparison: Chest radiograph 09/01/2018 Findings: Subtle improvement pattern of aeration right lower lobe The trachea is midline. The cardiac silhouette is stably enlarged with chronic prominence interstitium. No pneumothorax with stable trace right effusion. Soft tissues are unremarkable. Osseous structures are unremarkable. IMPRESSION: 1. Improved pattern of aeration right lower lobe with no other interval change. Reported By:
[2018-09-02] MEDS ORDERED: LEXAPRO ONE (08:12)
[2018-09-02] MEDS: TOPROL XL PO SCH (08:46)
[2018-09-02] MEDS: SYNTHROID 50 mcg TAB PO SCH (08:46)
[2018-09-02] MEDS: ELIQUIS PO SCH (08:46)
[2018-09-02] MEDS: ECOTRIN TAB 325 MG PO SCH (08:46)
[2018-09-02] MEDS: LEXAPRO PO SCH (08:46)
[2018-09-02] MEDS: SINGULAIR TAB 10 MG PO SCH (08:46)
[2018-09-02] MEDS: DUONEB 0.5 MG/3 MG NEB SCH ×2 (08:57→12:15)
[2018-09-02 11:22] VITALS: BP 158/72
--- NOTE | 2018-09-05 10:08 | PCM.PROG ---
Progress Note - Progress Note for Day of Date of Exam: 09/01/18 - Subjective Subjective: WAS ADMITTED DUE TO AN ACUTE/SUBACUTE INFARCT INVOLVING THE LEFT FRONTAL LOBE. SHE IS ALSO BEING TREATED FOR RIGHT LOWER LOBE PNEUMONIA. TODAY, SHE IS ALERT, LYING IN BED ON MORNING ROUNDS. SHE REPORTS WEAKNESS, COUGH, AND SHORTNESS OF BREATH THIS MORNING. FAMILY REPORTS THAT SHE CONTINUES TO BE CONFUSED AT TIMES AND IS NOT SPEAKING MUCH. HER VITALS THIS MORNING ARE 99.3-80-22-90%RA-123/56. LABS WERE OBTAINED. ABNORMAL LAB VALUES INCLUDE THE FOLLOWING: HGB 9.6, HCT 30.0, CHLORIDE 110, TOTAL PROTEIN 5.9, ALBUMIN 2.9. BLOOD, SPUTUM, AND URINE CULTURES ARE PENDING. A CHEST XRAY WAS OBTAINED THIS MORNING AND REVEALED: Improving aeration of the lungs with mild persistent centr al vascular congestion and layering right pleural effusion. SHE IS CURRENTLY ON ASPIRIN, ELIQUIS, LIPITOR, IV ANTIBIOTICS, AND RESPIRATORY TREATMENTS, IV LEVAQUIN, AND IV FORTAZ. PHYSICAL THERAPY WILL CONTINUE TO WORK WITH PATIENT TODAY. FAMILY REQUEST TO NO LONGER PLACE PATIENT IN [facility]. THEY WISH TO TRY CARING FOR PATIENT AT HOME. OTHERWISE, WE WILL FOLLOW UP WITH AM LABS AND CONTINUE TO MONITOR. - Past Medical Family Social History Past Med/Fam/Surg Hx: No changes since H&P Allergies: Allergies codeine Allergy (Verified 08/26/18 15:14) - Review of Systems ROS: No change since H&P - Vital Signs and I&O's Vital Signs: Temperature 98.0 F Pulse Rate [Left Brachial] 92 Pulse Rate 89 Respiratory Rate 30 Blood Pressure [Right Arm] 134/65 Blood Pressure [Left Arm] 143/76 Blood Pressure 158/72 O2 Sat by Pulse Oximetry 94 Intake and Output: Intake & Output 09/02/18 09/03/18 09/04/18 09/05/18 11:59 11:59 11:59 11:59 Intake Total 3220 / 3220 Output Total 2700 / 2700 Balance 520 / 520 - Physical Exam Oriented: Person Eyes: Normal Ear: Normal Throat: Normal Respiratory: Diminished, Wheezes Cardiovascular: Normal. negative: Edema : Normal Auscultation: Bowel Sounds: Normal Tenderness: Normal Skin: Decreased Turgur Musculoskeletal: Normal Psychiatric: Anxiety Mood Description: Calm Affect: Anxious Speech Pattern: Clear, Appropriate - Laboratory and Diagnostics Result Diagrams: 09/02/18 04:00 09/02/18 04:00 Labs: 08/26/18 18:23 Blood Blood Culture - Final 08/26/18 18:17 Blood Blood Culture - Final 08/28/18 09:37 Urine,Clean Catch Urine Culture - Final 08/26/18 21:30 Sputum - Expectorated Sputum Sputum Culture - Final 08/26/18 21:30 Sputum - Expectorated Sputum - Final Laboratory WBC 7.7 X10^3/uL (3.6-10.0) 09/02/18 04:00 RBC 3.56 X10^6/uL (3.5-5.4) 09/02/18 04:00 Hgb 9.9 g/dL (12.0-16.0) L 09/02/18 04:00 Hct 30.3 % (36.0-47.0) L 09/02/18 04:00 MCV 85.2 fL (80.0-100.0) 09/02/18 04:00 MCH 27.9 pg (27.0-34.0) 09/02/18 04:00 MCHC 32.7 g/dL (33.0-35.0) L 09/02/18 04:00 RDW 19.5 % (11.6-16.5) H 09/02/18 04:00 Plt Count 187 X10^3/uL (150.0-450.0) 09/02/18 04:00 Plt Count Comment Adequate (ADEQUATE) 09/02/18 04:00 MPV 8.8 fL (7.4-11.0) 09/02/18 04:00 Neut % (Auto) 70.6 % (42.0-75.0) 09/02/18 04:00 Lymph % (Auto) 13.7 % (21.0-51.0) L 09/02/18 04:00 [place] % (Auto) 8.2 % (0.0-13.0) 09/02/18 04:00 Eos % (Auto) 4.5 % (0.9-2.9) H 09/02/18 04:00 Baso % (Auto) 3.0 % (0.2-1.0) H 09/02/18 04:00 Neut # (Auto) 5.4 x10^3/uL (2.2-4.8) H 09/02/18 04:00 Lymph # (Auto) 1.1 X10^3/uL (1.3-2.9) L 09/02/18 04:00 [place] # (Auto) 0.6 x10^3/uL (0.3-0.8) 09/02/18 04:00 Eos # (Auto) 0.3 x10^3/uL (0.0-0.2) H 09/02/18 04:00 Baso # (Auto) 0.2 X10^3/uL (0.0-0.1) H 09/02/18 04:00 Absolute Nucleated RBC 0.2 /100WBC 09/02/18 04:00 Total Counted 100 09/02/18 04:00 Neutrophils % (Manual) 77 % (39-76) H 09/02/18 04:00 Lymphocytes % (Manual) 11 % (13-43) L 09/02/18 04:00 Monocytes % (Manual) 9 % (4-9) 09/02/18 04:00 Eosinophils % (Manual) 3 % (0-6) 09/02/18 04:00 Basophils % (Manual) 3 % (0-1) H 08/31/18 04:02 Plt Morphology Comment Normal (NORMAL) 09/02/18 04:00 RBC Morphology Abnormal (NORMAL) A 09/02/18 04:00 Hypochromasia Slight A 09/02/18 04:00 Anisocytosis Slight A 09/02/18 04:00 INR Target Range - 08/27/18 12:11 INR 1.06 (0.8-1.3) 08/27/18 12:11 APTT 25.5 SECONDS (22.9-36.5) 08/27/18 12:11 PTT Comment - 08/27/18 12:11 Sample Site Lr 08/26/18 16:43 ABG pH 7.490 (7.35-7.45) H 08/26/18 16:43 ABG pCO2 37.0 mmHg (35.0-45.0) 08/26/18 16:43 ABG pO2 54.0 mmHg (80.0-100.0) L 08/26/18 16:43 ABG HCO3 28.2 mmol/L (22-26) H 08/26/18 16:43 ABG O2 Saturation 90.0 % (90-100) 08/26/18 16:43 ABG Base Excess 4.7 mmol/L (-2.0-2.0) H 08/26/18 16:43 Abhinav Test Pos 08/26/18 16:43 A-a Gradient 49.0 mmHg 08/26/18 16:43 FiO2 21.0 08/26/18 16:43 Blood Gas Comments Tiffanie well gmb 08/26/18 16:43 Sodium 146 mmol/L (136-145) H 09/02/18 04:00 Corrected Sodium TNP 09/02/18 04:00 Potassium 3.5 mmol/L (3.5-5.1) 09/02/18 04:00 Chloride 109 mmol/L (98-107) H 09/02/18 04:00 Carbon Dioxide 24.8 mmol/L (21-32) 09/02/18 04:00 BUN 12 mg/dL (7-18) 09/02/18 04:00 Creatinine 0.61 mg/dL (0.55-1.02) 09/02/18 04:00 Est GFR (MDRD) Af Amer > 60 (>60) 09/02/18 04:00 Est GFR (MDRD) Non-Af > 60 (>60) 09/02/18 04:00 Glucose 86 mg/dL (65-99) 09/02/18 04:00 POC Glucose (mg/dL) 108 mg/dL (65-99) H 09/02/18 11:27 Lactic Acid 1.2 mmol/L (0.4-2.0) 08/26/18 18:23 Calcium 9.4 mg/dL (8.5-10.1) 09/02/18 04:00 Corrected Calcium 10.3 mg/dL (8.5-10.1) H 09/02/18 04:00 Magnesium 1.9 mg/dL (1.7-2.9) 08/28/18 04:03 Total Bilirubin 0.30 mg/dL (0.2-1.0) 09/02/18 04:00 AST 25 Units/L (15-37) 09/02/18 04:00 ALT 20 Units/L (12-78) 09/02/18 04:00 Alkaline Phosphatase 78 Units/L (46-116) 09/02/18 04:00 Ammonia 14 umol/L (11-32) 08/26/18 16:41 Total Protein 6.0 g/dL (6.4-8.2) L 09/02/18 04:00 Albumin 2.9 g/dL (3.4-5.0) L 09/02/18 04:00 Globulin 3.1 g/dL (2.5-4.5) 09/02/18 04:00 Albumin/Globulin Ratio 0.9 Ratio (1.1-2.1) L 09/02/18 04:00 Specimen Type Catherized urine 08/28/18 09:37 Urine Color Yellow (YELLOW) 08/28/18 09:37 Urine Appearance Clear (CLEAR) 08/28/18 09:37 Urine pH 6.5 (5.0 - 8.0) 08/28/18 09:37 Ur Specific [place] 1.015 (1.000-1.030) 08/28/18 09:37 Urine Protein 1+ (NEGATIVE) 08/28/18 09:37 Urine Glucose (UA) Negative (NEGATIVE) 08/28/18 09:37 Urine Ketones Negative (NEGATIVE) 08/28/18 09:37 Urine Occult Blood Negative (NEGATIVE) 08/28/18 09:37 Urine Nitrite Negative (NEGATIVE) 08/28/18 09:37 Urine Bilirubin Negative (NEGATIVE) 08/28/18 09:37 Urine Urobilinogen Normal (NORMAL) 08/28/18 09:37 Ur Leukocyte Esterase Negative (NEGATIVE) 08/28/18 09:37 Urine RBC None seen /HPF (NONE SEEN) 08/28/18 09:37 Urine WBC None seen /HPF (NONE SEEN) 08/28/18 09:37 Ur Squamous Epith Cells Rare /HPF (NEGATIVE) 08/28/18 09:37 Urine Bacteria Negative /HPF (NEGATIVE) 08/28/18 09:37 Ur Culture Indicated? Yes/culture set up 08/28/18 09:37 - Plan (1) Focal infarction of brain Status: Acute Plan: ACUTE CVA, NEURO CHECKS, PT/OT EVALUATION. BP LIPID CONTROL, STATIN THERAPY ASPIRIN, RESUMED ELIQUIS. SUPPLEMENTAL O2, BRAIN MRI/MRA, CONTINUE TO MONITOR (2) Pneumonia Status: Acute Qualifiers: Pneumonia type: due to unspecified organism Laterality: right Lung loc ation: lower lobe of lung Qualified Code(s): J18.1 - Lobar pneumonia, unspecified organism Plan: IV FORTAZ, IV LEVAQUIN, RESPIRATORY TX, SUPPLEMENTAL OXYGEN, CONTINUE TO MONITOR
== END 2018-09-02 13:58 | disposition home health service (06) | DRG 64 ==
LOC: ER 15:07 → ICU 18:17
PROVIDERS: ADMIT Internal Medicine; ATTEND Internal Medicine
DX: R06.02 Shortness of breath; R53.1 Weakness; I63.89 Other cerebral infarction; R47.89 Other speech disturbances; C34.90 Malignant neoplasm of unspecified part of unspecified bronchus or lung; I10 Essential (primary) hypertension; I26.99 Other pulmonary embolism without acute cor pulmonale; Z79.01 Long term (current) use of anticoagulants; K21.9 Gastro-esophageal reflux disease without esophagitis; E78.2 Mixed hyperlipidemia; R41.82 Altered mental status, unspecified; J18.8 Other pneumonia, unspecified organism; J44.9 Chronic obstructive pulmonary disease, unspecified
CPT/HCPCS: 36415; 36600; 70450; 70460; 70498; 70544; 70553; 71010; 71045; 74177; 80053; 81001; 82140; 82803; 83605; 83735; 85025; 85610; 85730; 87040; 87070; 87086; 87205; 94640; 96365; 96367; 97110; 97112; 97116; 97162; 97166; 99284; A4216; A4222; J0713; J1956; J7030; J7050; J7620